=== PATIENT | female | born 1945 | race Caucasian/White ===

== ENCOUNTER → 2019-08-25 | Outpatient (REF) | payer MEDICARE, OTHER ==
[2019-08-25 18:10] LABS: BASO % 0.5 % (0.0-1.0); EOS # 0.1 10^3/uL (0.0-0.5); EOS % 1.7 % (0.0-3.0); HEMATOCRIT 40.1 % (36.0-47.0); HEMOGLOBIN 12.9 g/dl (12.0-15.5); LYMPH # 2.8 10^3/uL (1.5-5.0); LYMPH % 32.6 % (24.0-44.0); MEAN CORPUSCULAR HEMOGLOBIN 29.7 pg (27.0-33.0); MEAN CORPUSCULAR HGB CONC 32.2 g/dl (32.0-36.5); MEAN CORPUSCULAR VOLUME 92.4 fl (80.0-96.0); MONO # 0.6 10^3/uL (0.0-0.8); MONO % 7.2 % (0.0-5.0); NEUTROPHILS # 4.9 10^3/uL (1.5-8.5); NEUTROPHILS % 57.5 % (36.0-66.0); PLATELET COUNT, AUTOMATED 248 10^3/uL (150-450); RED BLOOD COUNT 4.34 10^6/uL (4.00-5.40); WHITE BLOOD COUNT 8.4 10^3/uL (4.0-10.0)
[2019-08-25 18:19] LABS: ALBUMIN 3.8 GM/DL (3.2-5.2); ALT/SGPT 12 U/L (12-78); BILIRUBIN,TOTAL 0.2 MG/DL (0.2-1.0); BLOOD UREA NITROGEN 6 MG/DL (7-18); CARBON DIOXIDE LEVEL 37 MEQ/L (21-32); CHLORIDE LEVEL 97 MEQ/L (98-107); CHOLESTEROL LEVEL 171 MG/DL (<200); CREATININE FOR GFR 0.49 MG/DL (0.55-1.30); GLOMERULAR FILTRATION RATE > 60.0 (>39); GLUCOSE, FASTING 119 MG/DL (70-100); HDL CHOLESTEROL 38 MG/DL (>40); LDL CHOLESTEROL 79 MG/DL (<100); NON-HDL-C 133 MG/DL; POTASSIUM SERUM 3.6 MEQ/L (3.5-5.1); SODIUM LEVEL 138 MEQ/L (136-145); TRIGLYCERIDES LEVEL 272 MG/DL (<150)
[2019-08-25 18:26] LABS: HEMOGLOBIN A1c 7.1 %
== END ==
LOC: M SFHCPLAZ 14:26
DX: E11.9 Type 2 diabetes mellitus without complications (principal); E78.00 Pure hypercholesterolemia, unspecified
CPT/HCPCS: 36415; 80053; 80061; 83036; 85025; G0463

== ENCOUNTER → 2019-10-21 | Outpatient (REF) | payer MEDICARE, OTHER | LOC: M SFHCPLAZ 14:12 | DX: E11.9 Type 2 diabetes mellitus without complications (principal) | CPT/HCPCS: 36415; G0463 ==

== ENCOUNTER → 2020-04-07 | Outpatient (CLI) | payer MEDICARE, BC, OTHER ==
--- NOTE | 2020-04-13 15:43 | REP ---
THREE VIEWS OF THE LEFT SHOULDER COMPARISON: None. REASON FOR EXAM: Chronic pain. FINDINGS: Hypertrophic degenerative change is seen involving the acromioclavicular joint. The glenohumeral relationship is within normal limits. There is a tiny ossific density seen arising from the inferior glenoid. IMPRESSION: 1. Chronic acromioclavicular (AC) joint changes. I cannot rule out an old fracture. 2. Possible fracture inferior glenoid. 3. Subluxation of the humeral head somewhat superiorly within the glenohumeral joint. 4. Consider further evaluation with CT and/or MRI. MTDD
== END ==
LOC: M WUC 12:42
PROVIDERS: ATTEND Internal Medicine
DX: M25.512 Pain in left shoulder (principal); S43.395A Dislocation of other parts of left shoulder girdle, initial encounter; X58.XXXA Exposure to other specified factors, initial encounter; Y92.9 Unspecified place or not applicable

== ENCOUNTER → 2020-04-26 | Outpatient (REF) | payer MEDICARE, OTHER ==
[2020-04-26 14:28] LABS: BLOOD UREA NITROGEN 6 MG/DL (7-18); CALCIUM LEVEL 9.4 MG/DL (8.8-10.2); CARBON DIOXIDE LEVEL 34 MEQ/L (21-32); CHLORIDE LEVEL 90 MEQ/L (98-107); CREATININE FOR GFR 0.59 MG/DL (0.55-1.30); GLOMERULAR FILTRATION RATE > 60.0 (>39); GLUCOSE, FASTING 195 MG/DL (70-100); POTASSIUM SERUM 4.8 MEQ/L (3.5-5.1); SODIUM LEVEL 129 MEQ/L (136-145)
== END ==
LOC: M SFHCPLAZ 09:05
DX: R25.2 Cramp and spasm (principal)

== ENCOUNTER 2020-06-17 15:30 | Emergency (ER) | payer MEDICARE, BC, OTHER ==
[~2020-06-17] VITALS: Ht 154.9 cm; Wt 107.4 kg
[2020-06-17] MEDS ORDERED: ONDANSETRON 4 MG ORAL DISINTEGRATING TAB PO ONE (16:00)
--- NOTE | 2020-06-17 16:01 | REP ---
INDICATION: FALL POSSIBLE BLOOD THINNERS. COMPARISON: None. TECHNIQUE: CT BRAIN PERFORMED IN THE AXIAL PLANE. CORONAL RECONSTRUCTION IMAGES ARE PERFORMED. FINDINGS: There is moderate atrophy. No midline shift or mass effect. No definite abnormal density is seen in the brain. There is no acute intracranial hemorrhage or extra-axial fluid collection. Scalp hematoma is seen in the right frontal region. No skull fracture is seen. There are mild vascular calcifications of the carotid siphons. The visualized paranasal sinuses are clear. IMPRESSION: Chronic changes without evidence of acute intracranial hemorrhage, midline shift or mass effect. No skull fracture. Scalp hematoma right frontal region. <Electronically signed by Flaco Peralta > 06/17/20 0725
--- NOTE | 2020-06-17 16:10 | REP ---
INDICATION: FALL POSSIBLE BLOOD THINNERS. COMPARISON: None. TECHNIQUE: CT cervical spine performed in the axial plane, with sagittal and coronal reconstruction images performed. FINDINGS: Study somewhat limited due to patient motion. There is no acute compression fracture or malalignment. There is no prevertebral soft tissue swelling. There is diffuse moderate spurring and disc space narrowing at C4 through C7.. There is slight reversal of cervical lordosis. There is no abnormal density in the spinal canal. There is a tiny amount of fluid and/or mucosal thickening in the inferior maxillary sinuses bilaterally. IMPRESSION: No evidence of acute fracture or dislocation.Arthritic changes. <Electronically signed by Flaco Peralta > 06/17/20 6278
[2020-06-17] MEDS ORDERED: ACETAMINOPHEN 500 MG TAB PO ONE (16:30)
--- NOTE | 2020-06-17 16:32 | REP ---
INDICATION: trauma COMPARISON: None. TECHNIQUE: Five views right 3rd digit performed. FINDINGS: There is medial dislocation at the 3rd proximal interphalangeal joint, with the middle and distal phalanges displaced and angulated medially. There is no definite fracture. IMPRESSION: Medial dislocation at the 3rd proximal interphalangeal joint. <Electronically signed by Flaco Peralta > 06/17/20 6989
--- NOTE | 2020-06-17 16:43 | REP ---
INDICATION: post reduction COMPARISON: Earlier the same day. TECHNIQUE: Four views right 3rd digit, postreduction. FINDINGS: The previously noted medial dislocation at the proximal interphalangeal joint has been reduced. The osseous structures are well-aligned. There is moderate narrowing of the visualized proximal and distal interphalangeal joints.There is a small chip fracture at the anterior margin of the 3rd proximal interphalangeal joint. IMPRESSION: Successful reduction of the previously noted dislocation at the 3rd proximal interphalangeal joint. There is a small chip fracture at the anterior margin of the 3rd proximal interphalangeal joint. <Electronically signed by Flaco Peralta > 06/17/20 1640
[2020-06-17 17:11] VITALS: BP 184/90
== END 2020-06-17 17:16 | disposition home or self-care (01) ==
LOC: EDBD 15:30 → M ED 15:30
DX: S00.03XA Contusion of scalp, initial encounter (principal); S63.282A Dislocation of proximal interphalangeal joint of right middle finger, initial encounter; S62.642A Nondisplaced fracture of proximal phalanx of right middle finger, initial encounter for closed fracture; W07.XXXA Fall from chair, initial encounter; Y92.019 Unspecified place in single-family (private) house as the place of occurrence of the external cause; Y93.9 Activity, unspecified; Y99.9 Unspecified external cause status; M50.30 Other cervical disc degeneration, unspecified cervical region; E11.9 Type 2 diabetes mellitus without complications; I10 Essential (primary) hypertension; G89.29 Other chronic pain; F20.9 Schizophrenia, unspecified
CPT/HCPCS: 26770; 70450; 72125; 73140; 99284; Q0162

== ENCOUNTER → 2021-01-11 | Outpatient (REF) | payer MEDICARE, BC, OTHER | LOC: M SFHCWAGY 13:06 | PROVIDERS: ATTEND Student in an Organized Health Care Education/Training Program | DX: G89.4 Chronic pain syndrome (principal); Z79.899 Other long term (current) drug therapy | CPT/HCPCS: 80307; G0463 ==

== ENCOUNTER 2021-05-20 13:31 | Emergency (ER) | payer MEDICARE, BC, OTHER ==
[~2021-05-20] VITALS: Ht 144.8 cm; Wt 86.4 kg
--- OUTSIDE RECORDS SUMMARY | 2021-05-20 13:42 | CCD ---
Author Author [facility] Organization [facility] Address Unknown Phone Unavailable Care Team Providers Care Machinist Linotype Name Role Phone Ute Yangricia Unavailable PROBLEMS Type Condition ICD9-CM Code VNB69-PT Code Onset Dates Condition S tatus W/U Status Risk SNOMED Code Notes Problem Morbid obesity E66.01 Active confirmed 90079 6002 Problem Other chronic pain G89.29 Active confirmed 8 9255401 Problem Chronic pain syndrome G89.4 Active confirmed 075697940 Problem Hypercholesterolemia E78.00 Active confirmed 20533876 Problem Obstructive sleep apnea G47.33 Active confirmed 30970492 Problem Generalized anxiety disorder F41.1 Active confirme d 60314414 Problem Seasonal allergic rhinitis due to pollen J30.1 Active confirmed 26336155 Problem 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 Active confirmed 18915120 Problem Dysphagia, unspecified type R13.10 Active confirmed 94766521 Problem Type 2 diabetes mellitus wit hout complication, without long-term current use of insulin E11.9 Active confirmed 932954056 Problem Complex regional pain syndrome affecting both upper arms G90.513 Active confirmed 228553272 Problem Slow transit constipation K59.01 Active confirmed 31933760 Problem Allergic rhinitis, unspecified J30.9 Active confir med 04731591 Problem Age-related cataract of both eyes, unspecified age-related cataract type H25.9 Active confirmed 76641162 ALLERGIES No Known Allergies ENCOUNTERS from 1945 to 2021-05-10 Encounter Location Date Provider Diagnosis [address] [phone] [place] [address] May, Leeanne Yang IMMUNIZATIONS No Information SOCIAL HISTORY Tobacco Use: Social History Observation Description Date Details (start date - stop date) Former Smoker Sex Assigned At : Social History Observation Description Sex Assigned At Unknown Audit Question Answer Notes Total Score: 0 Interpretation: Alcohol Education Drug and Alcohol Question Answer Notes Total Score: 0 Interpretation: No problems reported Tobacco Use: Question Answer Notes Are you a: former smoker How long has it been since you last smoked? > 10 years REASON FOR REFERRAL No Information VITAL SIGNS No information MEDICATIONS Medication SIG (Take, Route, Frequency, Duration) Notes Start Da te End Date Status Pravastatin Sodium 40 MG 1 tablet Orally Once a day Active Losartan Potassium 100 MG TAKE ONE TABLET BY MOUTH PIPO RY DAY Orally Once a day for 30 days Active Lyrica 50 MG 1 capsule Orally Once a day for 30 Days Active OneTouch SureSoft Lancing Dev - as directed topically Daily for 90 days Oct, Active Albuterol Sulfate 108 (90 Base) MCG/ACT 1 puff as need ed Inhalation every 4 hrs as needed for 30 Days Dec, Active Citalopram Hydrobromide 20 MG 1 tablet Orally Once a day Active Januvia 25 MG as directed Orally Daily for 90 days Active Lasix 20 MG 2 tablet Orally Once a day for 90 day(s) Active OneTouch Verio w/Device as directed topically Daily for 90 day(s ) Oct, Active ZyrTEC Allergy 10 MG 1 tablet on the tongue and a llow to dissolve Orally Once a day for 90 day(s) Oct, Active HYDROcodone-Acetaminophen 10-325 MG 1 tablet as needed Orally every 6 hrs for 30 days Apr, Active ARIPiprazole 30 MG 1 tablet Orally Once a day Active PROCEDURES No Information RESULTS No Results REASON FOR VISIT refill MEDICAL (GENERAL) HISTORY Type Description Date Medical History DM Type 2 Medical History Chronic pain and has been on chronic opi oids Medical History HTN Medical History Anxiety Medical History High Cholesterol Medical History Osteoarthritis Medical History Emphysema Medical History Depression Medical History Schizophrenia Surgical History Transabdominal hysterectomy and bilatera l salpingoophorectomy 1992 Hospitalization History Back traction Goals Section No Information Health Concerns No Information MEDICAL EQUIPMENT No Information MENTAL STATUS No Information FUNCTIONAL STATUS No Information ASSESSMENTS No Information PLAN OF TREATMENT Medication Medication Name Sig Start Date Stop Date Losartan Potassium 100 MG TAKE ONE TABLET BY MOUTH PIPO RY DAY Orally Once a day for 30 days HYDROcodone-Acetaminophen 10-325 MG 1 tablet as needed Orally every 6 hrs for 30 days Apr, Next Appt Details Provider Name:Althea Benoit, 2020-07 02:30:00 PM, [address] [facility], , [place], [address], Insurance Providers Payer Name Payer Address Payer Phone Insured Name Patient Relati onship to Insured Coverage Start Date Coverage End Date [facility] [address] [facility] [id number] Ismael Peters MEDICARE Part A and B [address] [facility] [id number] [phone] TICO GUEVARA self
--- OUTSIDE RECORDS SUMMARY | 2021-05-20 13:42 | CCD ---
Author Author [facility] Organization [facility] Address Unknown Phone Unavailable Care Team Providers Care Vfx Artist Name Role Phone Leeanne Yang Unavailable PROBLEMS Type Condition ICD9-CM Code HQY26-GC Code Onset Dates Condition S tatus W/U Status Risk SNOMED Code Notes Problem Morbid obesity E66.01 Active confirmed 65418 6002 Problem Other chronic pain G89.29 Active confirmed 8 5017152 Problem Chronic pain syndrome G89.4 Active confirmed 518870925 Problem Hypercholesterolemia E78.00 Active confirmed 84299586 Problem Obstructive sleep apnea G47.33 Active confirmed 58649806 Problem Generalized anxiety disorder F41.1 Active confirme d 02423926 Problem Seasonal allergic rhinitis due to pollen J30.1 Active confirmed 59323745 Problem 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 Active confirmed 03439644 Problem Dysphagia, unspecified type R13.10 Active confirmed 68207280 Problem Type 2 diabetes mellitus wit hout complication, without long-term current use of insulin E11.9 Active confirmed 555450234 Problem Complex regional pain syndrome affecting both upper arms G90.513 Active confirmed 164421021 Problem Slow transit constipation K59.01 Active confirmed 78549134 Problem Allergic rhinitis, unspecified J30.9 Active confir med 97272213 Problem Age-related cataract of both eyes, unspecified age-related cataract type H25.9 Active confirmed 54440310 ALLERGIES No Known Allergies ENCOUNTERS from 1945 to 2021-04-25 Encounter Location Date Provider Diagnosis [address] [phone] [place] [address] 18 Apr, 2021 Leeanne Yang Chronic pain syndrome G89.4 IMMUNIZATIONS No Information SOCIAL HISTORY Tobacco Use: [...] 100 MG TAKE ONE TABLET BY MOUTH EVERY DAY for 30 Active Lyrica 50 MG 1 capsule Orally [...] Information RESULTS No Results REASON FOR VISIT stomach cream and vicodin MEDICAL (GENERAL) HISTORY Type Description Date Medical [...] No Information FUNCTIONAL STATUS No Information ASSESSMENTS Encounter Date Diagnosis Assessment Notes Treatment Notes Treatm ent Clinical Notes Apr, Chronic pain syndrome (ICD-10 - G89.4) PLAN OF TREATMENT Medication Medication Name Sig Start Date Stop Date HYDROcodone-Acetaminophen 10-325 MG 1 tablet as needed Orally every 6 hrs for 30 days Apr, Next Appt Details Provider Name:Althea Benoit, 2020-07 02:30:00 PM, [address] [facility], , [place], [address], Insurance Providers Payer Name Payer Address Payer Phone Insured Name Patient Relati onship to Insured Coverage Start Date Coverage End Date MEDICARE Part A and B [address] [facility] [id number] TICO GUEVARA [facility] [address] [facility] [id number] Ismael Peters
--- OUTSIDE RECORDS SUMMARY | 2021-05-20 13:42 | CCD ---
Author Author [facility] Organization [facility] Address Unknown Phone Unavailable Care Team Providers Care Chief Deputy Clerk/Bailiff Name Role Phone MakennaKati PROBLEMS Type Condition ICD9-CM Code [id number] Code Onset Dates Condition S tatus W/U Status Risk SNOMED Code Notes Problem Morbid obesity E66.01 Active confirmed 78899 6002 Problem Other chronic pain G89.29 Active confirmed 8 0834400 Problem Chronic pain syndrome G89.4 Active confirmed 393053239 Problem Hypercholesterolemia E78.00 Active confirmed 48055829 Problem Obstructive sleep apnea G47.33 Active confirmed 04903152 Problem Generalized anxiety disorder F41.1 Active confirme d 99642312 Problem Seasonal allergic rhinitis due to pollen J30.1 Active confirmed 21108682 Problem 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 Active confirmed 52769550 Problem Dysphagia, unspecified type R13.10 Active confirmed 67913699 Problem Type 2 diabetes mellitus wit hout complication, without long-term current use of insulin E11.9 Active confirmed 109252766 Problem Complex regional pain syndrome affecting both upper arms G90.513 Active confirmed 351372524 Problem Slow transit constipation K59.01 Active confirmed 93091978 Problem Allergic rhinitis, unspecified J30.9 Active confir med 97280477 Problem Age-related cataract of both eyes, unspecified age-related cataract type H25.9 Active confirmed 67565879 ALLERGIES No Known Allergies ENCOUNTERS from 1945 to 2021-02-19 Encounter Location Date Provider Diagnosis [facility] [place] [address] [facility] [address] [phone] [place] [address] Jan, Kati Mensah Chronic pain syndrom e G89.4 IMMUNIZATIONS No Information SOCIAL HISTORY Tobacco [...] REASON FOR REFERRAL No Information VITAL SIGNS Weight 199.2 lbs Jan, Height 62 in Jan, BMI 36.43 kg/m2 Jan, Heart Rate 81 /min Jan, Respiratory Rate 19 /min Jan, Temperature 97.4 degrees Fahrenheit Jan, Oximetry 98 Jan, Blood pressure systolic 120 mm Hg Jan, Blood pressure diastolic 80 mm Hg Jan, MEDICATIONS Medication SIG (Take, Route, Frequency, Duration) [...] directed Orally Daily for 90 days Active HYDROcodone-Acetaminophen 10-325 MG 1 tablet as needed Orally every 4-6 hrs MDD: 6 for 30 days Feb, Active OneTouch Verio w/Device as directed topically Daily for 90 day(s ) Oct, Active ZyrTEC Allergy 10 MG 1 tablet on the tongue and a llow to dissolve Orally Once a day for 90 day(s) Oct, Active Lasix 20 MG 2 tablet Orally Once a day for 90 day(s) Active ARIPiprazole 30 MG 1 tablet Orally Once a day Active PROCEDURES No Information RESULTS No Results REASON FOR VISIT Request pain meds MEDICAL (GENERAL) HISTORY Type Description Date Medical [...] Notes Treatment Notes Treatm ent Clinical Notes Jan, Chronic pain syndrome (ICD-10 - G89.4) Patient agreed to urine drug screen. Will fill hydrocodone-acetaminophen for 6 days until the patient sees her new PCP Dr. Yang on 01/17/2021. Advised the patient to use pill box to ensure correct dosing. Advised the patient to avoid performing activities after taking the medication due to the drowsy effect. Patient and family said that she only needs 4 tab daily for pain control. Will change prescription to MDD of 6 but dispense 4 tablet for 7 days only. Patient will need to establish a controlled substance contract with new PCP Dr. 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 All of the above findings, plans, and assessments were discussed with precepting attending on 01/11/2021 morning PLAN OF TREATMENT Medication Medication Name Sig Start Date Stop Date HYDROcodone-Acetaminophen 10-325 MG 1 tablet as needed Orally every 4-6 hrs MDD: 6 for 30 days Feb, Treatment Notes Assessment Notes Clinical Notes Chronic pain syndrome Patient agreed to urine drug screen. Will fill hydrocodone-acetaminophen for 6 days until the patient sees her new PCP Dr. Yang on 01/17/2021. Advised the patient to use pill box to ensure correct dosi ng. Advised the patient to avoid performing activities after taking the medication due to the drowsy effect. Patient and family said that she only needs 4 tab daily for pain control. Will change prescription to MDD of 6 but dispense 4 tablet for 7 days only. Patient will need to establish a controlled substance contract with new PCP Dr. 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 All of the above findings, plans, and assessments were discussed with precepting attending on 01/11/2021 morning Treatment Notes Test Name Order Date DRUG EVAL COMPREHENSIVE 2021-01-11 Next Appt Details As scheduled on 01/17/[address] Thelma pelaez Reason: Provider Name:Leeanne Yang, 2021-03-25 11:00:00 AM, [address] [facility] [address], , [place], [address], Insurance Providers Payer Name Payer Address Payer Phone Insured Name Patient Relati onship to Insured Coverage Start Date Coverage End Date MEDICARE Part A and B [address] [facility] [id number] TICO GUEVARA [facility] [address] [facility] [id number] Ismael Peters
--- OUTSIDE RECORDS SUMMARY | 2021-05-20 13:42 | CCD ---
Author Author [facility] Organization [facility] Address Unknown Phone Unavailable Care Team Providers Care Livestock Nutrition Territory Manager Name Role Phone Leeanne Yang Unavailable PROBLEMS Type Condition ICD9-CM Code [id number] Code Onset Dates Condition S tatus W/U Status Risk SNOMED Code Notes Problem Morbid obesity E66.01 Active confirmed 41797 6002 Problem Other chronic pain G89.29 Active confirmed 8 9928454 Problem Chronic pain syndrome G89.4 Active confirmed 443919591 Problem Hypercholesterolemia E78.00 Active confirmed 46755995 Problem Obstructive sleep apnea G47.33 Active confirmed 14780408 Problem Generalized anxiety disorder F41.1 Active confirme d 89760329 Problem Seasonal allergic rhinitis due to pollen J30.1 Active confirmed 19985234 Problem 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 Active confirmed 02442191 Problem Dysphagia, unspecified type R13.10 Active confirmed 73458304 Problem Type 2 diabetes mellitus wit hout complication, without long-term current use of insulin E11.9 Active confirmed 260738451 Problem Complex regional pain syndrome affecting both upper arms G90.513 Active confirmed 483344688 Problem Slow transit constipation K59.01 Active confirmed 65387250 Problem Allergic rhinitis, unspecified J30.9 Active confir med 77503452 Problem Age-related cataract of both eyes, unspecified age-related cataract type H25.9 Active confirmed 28108310 ALLERGIES No Known Allergies ENCOUNTERS from 1945 to 2021-03-26 Encounter Location Date Provider Diagnosis [address] [phone] [place] [address] Mar, Leeanne Yang Chronic pain syndrome G89.4 IMMUNIZATIONS [...] Notes Start Da te End Date Status ZyrTEC Allergy 10 MG 1 tablet on the tongue and a llow to dissolve Orally Once a day for 90 day(s) Oct, Active Losartan Potassium 100 MG TAKE ONE [...] directed Orally Daily for 90 days Active Pravastatin Sodium 40 MG 1 tablet Orally Once a day Active OneTouch Verio w/Device as directed topically Daily for 90 day(s ) Oct, Active HYDROcodone-Acetaminophen 10-325 MG 1 tablet as needed Orally every 6 hrs for 30 days Mar, Active Lasix 20 MG 2 tablet Orally Once a day for 90 day(s) Active ARIPiprazole 30 MG 1 tablet Orally Once a day Active PROCEDURES No Information RESULTS No Results REASON FOR VISIT refill - out of meds MEDICAL (GENERAL) HISTORY Type Description Date [...] Notes Treatment Notes Treatm ent Clinical Notes Mar, Chronic pain syndrome (ICD-10 - G89.4) PLAN OF TREATMENT Medication Medication Name Sig Start Date Stop Date HYDROcodone-Acetaminophen 10-325 MG 1 tablet as needed Orally every 6 hrs for 30 days Mar, Next Appt Details Provider Name:Leeanne Yang, 2021-03-27 10:30:00 AM, [address] [facility], , [place], [address], Insurance Providers Payer Name Payer Address Payer Phone Insured Name Patient Relati onship to Insured Coverage Start Date Coverage End Date MEDICARE Part A and B [address] [facility] [id number] TICO GUEVARA [facility] [address] [facility] [id number] Ismael Peters
--- OUTSIDE RECORDS SUMMARY | 2021-05-20 13:43 | CCD ---
Author Author [facility] Address Unknown Phone Unavailable Care Team Providers Care Narcotics Investigator Name Role Phone Susi SHAH MD Unavailable Unavailable Susi SHAH MD Unavailable Unavailable Susi SHAH MD Unavailable Unavailable Susi SHAH MD Unavailable Unavailable Susi SHAH MD Unavailable Unavailable Susi SHAH MD Unavailable Unavailable Susi SHAH MD Unavailable Unavailable Susi SHAH MD Unavailable Unavailable Susi SHAH MD Unavailable Unavailable Susi SHAH MD Unavailable Unavailable Susi SHAH MD Unavailable Unavailable Susi SHAH MD Unavailable Unavailable Susi SHAH MD Unavailable Unavailable Susi SHAH MD Unavailable Unavailable Susi SHAH MD Unavailable Unavailable Susi SHAH MD Unavailable Unavailable Susi SHAH MD Unavailable Unavailable Susi SHAH MD Unavailable Unavailable Susi SHAH MD Unavailable Unavailable Susi SHAH MD Unavailable Unavailable Susi SHAH MD Unavailable Unavailable Susi SHAH MD Unavailable Unavailable Susi SHAH MD Unavailable Unavailable Susi SHAH MD Unavailable Unavailable Susi SHAH MD Unavailable Unavailable Susi SHAH MD Unavailable Unavailable Susi SHAH MD Unavailable Unavailable Susi SHAH MD Unavailable Unavailable Susi SHAH MD Unavailable Unavailable Susi SHAH MD Unavailable Unavailable Susi SHAH MD Unavailable Unavailable Susi SHAH MD Unavailable Unavailable Susi SHAH MD Unavailable Unavailable Susi SHAH MD Unavailable Unavailable Susi SHAH MD Unavailable Unavailable Susi SHAH MD Unavailable Unavailable Susi SHAH MD Unavailable Unavailable Susi SHAH MD Unavailable Unavailable Susi SHAH MD Unavailable Unavailable Susi SHAH MD Unavailable Unavailable Susi SHAH MD Unavailable Unavailable Susi SHAH MD Unavailable Unavailable Susi SHAH MD Unavailable Unavailable Susi SHAH MD Unavailable Unavailable Susi SHAH MD Unavailable Unavailable Susi SHAH MD Unavailable Unavailable Susi SHAH MD Unavailable Unavailable Susi SHAH MD Unavailable Unavailable Susi SHAH MD Unavailable Unavailable Susi SHAH MD Unavailable Unavailable Susi SHAH MD Unavailable Unavailable Susi SHAH MD Unavailable Unavailable Susi SHAH MD Unavailable Unavailable Susi SHAH MD Unavailable Unavailable Susi SHAH MD Unavailable Unavailable Susi SHAH MD Unavailable Unavailable Susi SHAH MD Unavailable Unavailable Susi SHAH MD Unavailable Unavailable Suis SHAH MD Unavailable Unavailable Susi SHAH MD Unavailable Unavailable Susi SHAH MD Unavailable Unavailable Susi SHAH MD Unavailable Unavailable Susi SHAH MD Unavailable Unavailable Susi SHAH MD Unavailable Unavailable Susi SHAH MD Unavailable Unavailable Susi SHAH MD Unavailable Unavailable Susi SHAH MD Unavailable Unavailable Susi SHAH MD Unavailable Unavailable Susi SHAH MD Unavailable Unavailable Susi SHAH MD Unavailable Unavailable Susi SHAH MD Unavailable Unavailable Susi SHAH MD Unavailable Unavailable Susi SHAH MD Unavailable Unavailable Susi SHAH MD Unavailable Unavailable Susi SHAH MD Unavailable Unavailable Susi SHAH MD Unavailable Unavailable Susi SHAH MD Unavailable Unavailable Susi SHAH MD Unavailable Unavailable Susi SHAH MD Unavailable Unavailable Susi SHAH MD Unavailable Unavailable Susi SHAH MD Unavailable Unavailable Susi SHAH MD Unavailable Unavailable Susi SHAH MD Unavailable Unavailable Susi SHAH MD Unavailable Unavailable Susi SHAH MD Unavailable Unavailable Susi SHAH MD Unavailable Unavailable Susi SHAH MD Unavailable Unavailable Susi SHAH MD Unavailable Unavailable Susi SHAH MD Unavailable Unavailable Re-disclosure Warning The records that you are about to access may contain information from federally-assisted alcohol or drug abuse programs. If such information is present, then the following federally mandated warning applies: This information has been disclosed to you from records protected by federal confidentiality rules (42 CFR part 2). The federal rules prohibit you from making any further disclosure of this information unless further disclosure is expressly permitted by the written consent of the person to whom it pertains or as otherwise permitted by 42 CFR part 2. A general authorization for the release of medical or other information is NOT sufficient for this purpose. The Federal rules restrict any use of the information to criminally investigate or prosecute any alcohol or drug abuse patient.The records that you are about to access may contain highly sensitive health information, the redisclosure of which is protected by Article 27-F of the [facility] Public Health law. If you continue you may have access to information: Regarding HIV / AIDS; Provided by facilities licensed or operated by the [facility] Office of Mental Health; or Provided by the [facility] Office for People With Developmental Disabilities. If such information is present, then the following [facility] mandated warning applies: This information has been disclosed to you from confidential records which are protected by state law. State law prohibits you from making any further disclosure of this information without the specific written consent of the person to whom it pertains, or as otherwise permitted by law. Any unauthorized further disclosure in violation of state law may result in a fine or nursing home sentence or both. A general authorization for the release of medical or other information is NOT sufficient authorization for further disc losure. Family History Family Member Name Family Member Gender Family Member Status Date o f Status Description Data Source(s) Unknown Female Problem [facility] ([facility] Encounters Encounter Providers Location Date Indications Data Source(s ) Unknown [address] [facility] [place] [address] 05/08/2021 12:00:00 AM EDT eCW1 ([facility]) Unknown [address] [facility] [place] [address] 04/22/2021 12:00:00 AM EDT eCW1 ([facility]) Unknown [address] [facility] [place] [address] 03/25/2021 12:00:00 AM EDT eCW1 ([facility]) [place] [address] [facility] [place] [address] 02/11/2021 12:00:00 AM EDT eCW1 ([facility]) [place] [address] [facility] [place] [address] 02/01/2021 12:00:00 AM EDT eCW1 ([facility]) [place] [address] [facility] [place] [address] 01/22/2021 12:00:00 AM EDT eCW1 ([facility]) [place] [address] [facility] [place] [address] 01/17/2021 12:00:00 AM EDT eCW1 ([facility]) [place] [address] [facility] [address] 01/11/2021 12:00:00 AM EDT eCW1 ([facility]) [place] [address] [facility] [place] [address] 01/04/2021 12:00:00 AM EDT eCW1 ([facility]) [place] [address] [facility] [place] [address] 01/02/2021 12:00:00 AM EDT eCW1 ([facility]) [place] [address] [facility] [place] [address] 12/28/2020 12:00:00 AM EDT eCW1 ([facility]) [place] [address] [facility] [place] [address] 12/20/2020 12:00:00 AM EDT eCW1 ([facility]) [place] [address] [facility] [place] [address] 12/10/2020 12:00:00 AM EDT eCW1 ([facility]) [place] [address] [facility] [place] [address] 11/14/2020 12:00:00 AM EDT eCW1 ([facility]) [place] [address] [facility] [place] [address] 10/24/2020 12:00:00 AM EDT eCW1 ([facility]) [place] [address] [facility] [place] [address] 10/22/2020 12:00:00 AM EDT eCW1 ([facility]) [place] [address] [facility] [place] [address] 10/19/2020 12:00:00 AM EDT eCW1 ([facility]) [place] [address] [facility] [place] [address] 10/19/2020 12:00:00 AM EDT eCW1 ([facility]) [place] [address] [facility] [place] [address] 10/16/2020 12:00:00 AM EDT eCW1 ([facility]) [place] [address] [facility] [place] [address] 10/11/2020 12:00:00 AM EDT eCW1 ([facility]) [place] [address] [facility] [place] [address] 10/04/2020 12:00:00 AM EDT eCW1 ([facility]) [place] [address] [facility] [place] [address] 09/24/2020 12:00:00 AM EDT eCW1 ([facility]) [place] [address] [facility] [place] [address] 08/30/2020 12:00:00 AM EST eCW1 ([facility]) TeleMedicine Phone E/M by Phys 21-30 Min [address] [place] [address] 08/24/2020 12:00:00 AM EST eCW1 ([facility]) [place] [address] [facility] [place] [address] 08/07/2020 12:00:00 AM EST eCW1 ([facility]) [place] [address] [facility] [place] [address] 07/17/2020 12:00:00 AM EST eCW1 ([facility]) [place] [address] [facility] [place] [address] 07/11/2020 12:00:00 AM EST eCW1 ([facility]) [place] [address] [facility] [place] [address] 07/09/2020 12:00:00 AM EST eCW1 ([facility]) [place] [address] [facility] [place] [address] 06/18/2020 12:00:00 AM EST eCW1 ([facility]) [place] [address] [facility] [place] [address] 06/13/2020 12:00:00 AM EST eCW1 ([facility]) [place] [address] [facility] [place] [address] 06/04/2020 12:00:00 AM EST eCW1 ([facility]) [place]patient [address] [facility] [place] [address] 05/25/2020 12:00:00 AM EST eCW1 ([facility]) [place] [address] [facility] [place] [address] 05/15/2020 12:00:00 AM EST eCW1 ([facility]) [place] [address] [facility] [place] [address] 05/01/2020 12:00:00 AM EDT eCW1 ([facility]) Outpatient Attender: PAMELA TORRES 04/27/2020 12:02:14 A M EDT [facility] [place] [address] [facility] [address] 04/19/2020 12:00:00 AM EDT [facility]CW1 [facility] [place] [address] [facility] [address] 04/10/2020 12:00:00 AM EDT eCW1 ([facility]) Immunizations Vaccine Date Status Description Data Source(s) COVID-19 VACCINE Moderna 09/10/2020 12:00:00 AM EST completed [facility] Vaccine Series Complete: YESThis Data wa s Submitted to [facility] [employer]. COVID-19 VACCINE, MRNA-1273, LNP-S (MODERNA)/PF 09/10/2020 1 2:00:00 AM EST completed [facility] COVID-19 VACCINE Moderna 08/13/2020 12:00:00 AM EST completed [facility] Vaccine Series Complete: NOThis Data was Submitted to [facility] [employer]. COVID-19 VACCINE, MRNA-1273, LNP-S (MODERNA)/PF 08/13/2020 1 2:00:00 AM EST completed [facility] INFLUENZA VIRUS VACCINE QUADRIVALENT 2019- (6 MOS AN D UP) 03/27/2020 12:00:00 AM EDT completed [facility] Medications Medication Brand Name Start Date Product Form Dose Route Admi nistrative Instructions Pharmacy Instructions Status Indications Reaction Description Data Source(s) Acetaminophen 325 MG / Hydrocodone Bitartrate 10 MG Or al Tablet 10-325 mg HYDROCODONE/ACETAMINOPHEN 05/17/2021 12:00:00 AM EST tablet 120 TAKE ONE TABLET BY MOUTH EVERY 6 HOURS NEEDED MAXIMUM DAILY DOSE = 4 TAKE ONE TABLET BY MOUTH EVERY 6 HOURS NEEDED MAXIMUM DAILY DOSE = 4 SOLD: 05/18/2021 [facility] 100 mg 05/09/2021 12:00:00 AM EDT tablet 30 TAKE ONE TABLET BY MOUTH DAILY TAKE ONE TABLET BY MOUTH DAILY SOLD: 05/09/2021 [facility] Acetaminophen 325 MG / Hydrocodone Bitartrate 10 MG Or al Tablet 10-325 mg HYDROCODONE/ACETAMINOPHEN 04/24/2021 12:00:00 AM EDT tablet 120 TAKE ONE TABLET BY MOUTH EVERY 6 HOURS NEEDED MAXIMUM DAILY DOSE = 4 TAKE ONE TABLET BY MOUTH EVERY 6 HOURS NEEDED MAXIMUM DAILY DOSE = 4 SOLD: 04/24/2021 [facility] Acetaminophen 325 MG / Hydrocodone Niko trate 10 MG Oral Tablet HYDROcodone- Acetaminophen 10-325 MG HYDROcodone-Acetaminophen 10-325 MG 04/23/2021 12:00:0 0 AM EDT 1.0 {tablet_as_needed} active HYDROcodone-Acetaminophen 10- 325 MG [facility] ([facility]) Acetaminophen 325 MG / Hydrocodone Niko trate 10 MG Oral Tablet HYDROcodone- Acetaminophen 10-325 MG HYDROcodone-Acetaminophen 10-325 MG 04/23/2021 12:00:0 0 AM EDT 1.0 {tablet_as_needed} active HYDROcodone-Acetaminophen 10- 325 MG eCW1 ([facility]) Acetaminophen 325 MG / Hydrocodone Bitartrate 10 MG Or al Tablet 10-325 mg HYDROCODONE/ACETAMINOPHEN 03/26/2021 12:00:00 AM EDT tablet 120 TAKE ONE TABLET BY MOUTH EVERY 6 HOURS NEEDED MAXIMUM DAILY DOSE = 4 TABLETS TAKE ONE TABLET BY MOUTH EVERY 6 HOURS NEEDED MAXIMUM DAILY DOSE = 4 TABLETS SOLD: 03/26/2021 [facility] Acetaminophen 325 MG / Hydrocodone Niko trate 10 MG Oral Tablet HYDROcodone- Acetaminophen 10-325 MG HYDROcodone-Acetaminophen 10-325 MG 03/25/2021 12:00:0 0 AM EDT 1.0 {tablet_as_needed} active HYDROcodone-Acetaminophen 10- 325 MG eCW1 ([facility]) Acetaminophen 325 MG / Hydrocodone Bitartrate 10 MG Or al Tablet 10-325 mg HYDROCODONE/ACETAMINOPHEN 02/16/2021 12:00:00 AM EDT tablet 120 TAKE ONE TABLET BY MOUTH EVERY 4 TO 6 HOURS NEEDED MAXIMUM DAILY DOSE = 6 TABLETS TAKE ONE TABLET BY MOUTH EVERY 4 TO 6 HOURS NEEDED MAXIMUM DAILY DOSE = 6 TABLETS SOLD: 02/16/2021 [facility] Acetaminophen 325 MG / Hydrocodone Niko trate 10 MG Oral Tablet HYDROcodone- Acetaminophen 10-325 MG HYDROcodone-Acetaminophen 10-325 MG 02/16/2021 12:00:0 0 AM EDT 1.0 {tablet_as_needed} active HYDROcodone-Acetaminophen 10- 325 MG eCW1 ([facility]) Acetaminophen 325 MG / Hydrocodone Niko trate 10 MG Oral Tablet HYDROcodone- Acetaminophen 10-325 MG HYDROcodone-Acetaminophen 10-325 MG 02/16/2021 12:00:0 0 AM EDT 1.0 {tablet_as_needed} active HYDROcodone-Acetaminophen 10- 325 MG eCW1 ([facility]) 2 mg 01/21/2021 12:00:00 AM EDT tablet 90 TAKE ONE TABLET BY MOUTH EVERY MORNING TAKE ONE TABLET BY MOUTH EVERY MORNING SOLD: 01/21/2021 [facility] Citalopram 20 MG Oral Tablet CITALOPRAM HYDROBROMIDE 01/21/2021 12:00:00 AM EDT tablet 90 TAKE ONE TABLET BY MOUTH EVERY E VENING TAKE ONE TABLET BY MOUTH EVERY EVENING SOLD: 01/21/2021 [facility] Acetaminophen 325 MG / Hydrocodone Bitartrate 10 MG Or al Tablet 10-325 mg HYDROCODONE/ACETAMINOPHEN 01/18/2021 12:00:00 AM EDT tablet 120 TAKE ONE TABLET BY MOUTH EVERY 4 TO 6 HOURS NEEDED MAXIMUM DAILY DOSE = SIX TABLETS TAKE ONE TABLET BY MOUTH EVERY 4 TO 6 HOURS NEEDED MAXIMUM DAILY DOSE = SIX TABLETS SOLD: 01/18/2021 [facility] Acetaminophen 325 MG / Hydrocodone Niko trate 10 MG Oral Tablet HYDROcodone- Acetaminophen 10-325 MG HYDROcodone-Acetaminophen 10-325 MG 01/17/2021 12:00:0 0 AM EDT 1.0 {tablet_as_needed} active HYDROcodone-Acetaminophen 10- 325 MG eCW1 ([facility]) Acetaminophen 325 MG / Hydrocodone Niko trate 10 MG Oral Tablet HYDROcodone- Acetaminophen 10-325 MG HYDROcodone-Acetaminophen 10-325 MG 01/17/2021 12:00:0 0 AM EDT 1.0 {tablet_as_needed} active HYDROcodone-Acetaminophen 10- 325 MG eCW1 ([facility]) Acetaminophen 325 MG / Hydrocodone Niko trate 10 MG Oral Tablet HYDROcodone- Acetaminophen 10-325 MG HYDROcodone-Acetaminophen 10-325 MG 01/17/2021 12:00:0 0 AM EDT 1.0 {tablet_as_needed} active HYDROcodone-Acetaminophen 10- 325 MG eCW1 ([facility]) Acetaminophen 325 MG / Hydrocodone Niko trate 10 MG Oral Tablet HYDROcodone- Acetaminophen 10-325 MG HYDROcodone-Acetaminophen 10-325 MG 01/17/2021 12:00:0 0 AM EDT 1.0 {tablet_as_needed} active HYDROcodone-Acetaminophen 10- 325 MG eCW1 ([facility]) Acetaminophen 325 MG / Hydrocodone Bitartrate 10 MG Or al Tablet 10-325 mg HYDROCODONE/ACETAMINOPHEN 01/12/2021 12:00:00 AM EDT tablet 28 TAKE ONE TABLET BY MOUTH EVERY 4 TO 6 HOURS NEEDED MAXIMUM DAILY DOSE = 6 TABLETS TAKE ONE TABLET BY MOUTH EVERY 4 TO 6 HOURS NEEDED MAXIMUM DAILY DOSE = 6 TABLETS SOLD: 01/12/2021 [facility] Acetaminophen 325 MG / Hydrocodone Niko trate 10 MG Oral Tablet HYDROcodone- Acetaminophen 10-325 MG HYDROcodone-Acetaminophen 10-325 MG 01/04/2021 12:00:0 0 AM EDT 1.0 {tablet_as_needed} active HYDROcodone-Acetaminophen 10- 325 MG eCW1 ([facility]) Acetaminophen 325 MG / Hydrocodone Niko trate 10 MG Oral Tablet HYDROcodone- Acetaminophen 10-325 MG HYDROcodone-Acetaminophen 10-325 MG 01/04/2021 12:00:0 0 AM EDT 1.0 {tablet_as_needed} active HYDROcodone-Acetaminophen 10- 325 MG eCW1 ([facility]) 90 mcg/actuation 01/01/2021 12:00:00 AM EDT aerosol powdr breath activated 1 INHALE ONE PUFF BY MOUTH EVERY 4 HOURS NEEDED INHAL E ONE PUFF BY MOUTH EVERY 4 HOURS NEEDED SOLD: 01/07/2021 [facility] 25 mg 12/29/2020 12:00:00 AM EDT tablet 90 TAKE DIRECTED DAILY TAKE DIRECTED DAILY SOLD: 04/09/2021 [facility] 25 mg 12/29/2020 12:00:00 AM EDT tablet 90 TAKE DIRECTED DAILY TAKE DIRECTED DAILY SOLD: 12/31/2020 [facility] Albuterol Sulfate 108 (90 Base) MCG/ACT UNK 12/28/2020 12: 00:00 AM EDT 1.0 {puff_as_needed} active Albuterol Sulfa te 108 (90 Base) MCG/ACT eCW1 ([facility]) Albuterol Sulfate 108 (90 Base) MCG/ACT UNK 12/28/2020 12: 00:00 AM EDT 1.0 {puff_as_needed} active Albuterol Sulfa te 108 (90 Base) MCG/ACT eCW1 ([facility]) Albuterol Sulfate 108 (90 Base) MCG/ACT UNK 12/28/2020 12: 00:00 AM EDT 1.0 {puff_as_needed} active Albuterol Sulfa te 108 (90 Base) MCG/ACT eCW1 ([facility]) Albuterol Sulfate 108 (90 Base) MCG/ACT UNK 12/28/2020 12: 00:00 AM EDT 1.0 {puff_as_needed} active Albuterol Sulfa te 108 (90 Base) MCG/ACT eCW1 ([facility]) Albuterol Sulfate 108 (90 Base) MCG/ACT UNK 12/28/2020 12: 00:00 AM EDT 1.0 {puff_as_needed} active Albuterol Sulfa te 108 (90 Base) MCG/ACT eCW1 ([facility]) Albuterol Sulfate 108 (90 Base) MCG/ACT UNK 12/28/2020 12: 00:00 AM EDT 1.0 {puff_as_needed} active Albuterol Sulfa te 108 (90 Base) MCG/ACT eCW1 ([facility]) Albuterol Sulfate 108 (90 Base) MCG/ACT UNK 12/28/2020 12: 00:00 AM EDT 1.0 {puff_as_needed} active Albuterol Sulfa te 108 (90 Base) MCG/ACT eCW1 ([facility]) Albuterol Sulfate 108 (90 Base) MCG/ACT UNK 12/28/2020 12: 00:00 AM EDT 1.0 {puff_as_needed} active Albuterol Sulfa te 108 (90 Base) MCG/ACT eCW1 ([facility]) Albuterol Sulfate 108 (90 Base) MCG/ACT UNK 12/28/2020 12: 00:00 AM EDT 1.0 {puff_as_needed} active Albuterol Sulfa te 108 (90 Base) MCG/ACT eCW1 ([facility]) Albuterol Sulfate 108 (90 Base) MCG/ACT UNK 12/28/2020 12: 00:00 AM EDT 1.0 {puff_as_needed} active Albuterol Sulfa te 108 (90 Base) MCG/ACT eCW1 ([facility]) Albuterol Sulfate 108 (90 Base) MCG/ACT UNK 12/28/2020 12: 00:00 AM EDT 1.0 {puff_as_needed} active Albuterol Sulfa te 108 (90 Base) MCG/ACT eCW1 ([facility]) Albuterol Sulfate 108 (90 Base) MCG/ACT UNK 12/28/2020 12: 00:00 AM EDT 1.0 {puff_as_needed} active Albuterol Sulfa te 108 (90 Base) MCG/ACT eCW1 ([facility]) Acetaminophen 325 MG / Hydrocodone Bitartrate 10 MG Or al Tablet 10-325 mg HYDROCODONE/ACETAMINOPHEN 12/17/2020 12:00:00 AM EDT tablet 120 TAKE ONE TABLET BY MOUTH EVERY 4 TO 6 HOURS NEEDED MAXIMUM DAILY DOSE = 4 TABLETS TAKE ONE TABLET BY MOUTH EVERY 4 TO 6 HOURS NEEDED MAXIMUM DAILY DOSE = 4 TABLETS SOLD: 12/18/2020 [facility] 100 mg 12/04/2020 12:00:00 AM EDT tablet 30 TAKE ONE TABLET BY MOUTH EVERY DAY TAKE ONE TABLET BY MOUTH EVERY DAY SOLD: 12/13/2020 [facility] Acetaminophen 325 MG / Hydrocodone Niko trate 10 MG Oral Tablet HYDROcodone- Acetaminophen 10-325 MG HYDROcodone-Acetaminophen 10-325 MG 11/16/2020 12:00:0 0 AM EDT 1.0 {tablet_as_needed} active HYDROcodone-Acetaminophen 10- 325 MG eCW1 ([facility]) Acetaminophen 325 MG / Hydrocodone Bitartrate 10 MG Or al Tablet 10-325 mg HYDROCODONE/ACETAMINOPHEN 11/16/2020 12:00:00 AM EDT tablet 180 TAKE ONE TABLET BY MOUTH EVERY 4-6 HOURS NEEDED MAXIMUM DAILY DOSE = 4 TAKE ONE TABLET BY MOUTH EVERY 4-6 HOURS NEEDED MAXIMUM DAILY DOSE = 4 SOLD: 11/17/2020 [facility] Acetaminophen 325 MG / Hydrocodone Niko trate 10 MG Oral Tablet Hydrocodone- Acetaminophen 10-325 MG Hydrocodone-Acetaminophen 10-325 MG 11/16/2020 12:00:0 0 AM EDT 1.0 {tablet_as_needed} active Hydrocodone-Acetaminophen 10- 325 MG eCW1 ([facility]) Acetaminophen 325 MG / Hydrocodone Niko trate 10 MG Oral Tablet HYDROcodone- Acetaminophen 10-325 MG HYDROcodone-Acetaminophen 10-325 MG 11/16/2020 12:00:0 0 AM EDT 1.0 {tablet_as_needed} active HYDROcodone-Acetaminophen 10- 325 MG eCW1 ([facility]) 100 mg 11/05/2020 12:00:00 AM EDT tablet 30 TAKE ONE TABLET BY MOUTH EVERY DAY TAKE ONE TABLET BY MOUTH EVERY DAY SOLD: 11/07/2020 [facility] 25 mg 10/22/2020 12:00:00 AM EDT tablet 90 TAKE DIRECTED DAILY TAKE DIRECTED DAILY SOLD: 10/23/2020 [facility] Acetaminophen 325 MG / Hydrocodone Niko trate 10 MG Oral Tablet Hydrocodone- Acetaminophen 10-325 MG Hydrocodone-Acetaminophen 10-325 MG 10/22/2020 12:00:0 0 AM EDT 1.0 {tablet_as_needed} active Hydrocodone-Acetaminophen 10- 325 MG eCW1 ([facility]) Acetaminophen 325 MG / Hydrocodone Niko trate 10 MG Oral Tablet Hydrocodone- Acetaminophen 10-325 MG Hydrocodone-Acetaminophen 10-325 MG 10/22/2020 12:00:0 0 AM EDT 1.0 {tablet_as_needed} active Hydrocodone-Acetaminophen 10- 325 MG eCW1 ([facility]) Acetaminophen 325 MG / Hydrocodone Bitartrate 10 MG Or al Tablet 10-325 mg HYDROCODONE/ACETAMINOPHEN 10/22/2020 12:00:00 AM EDT tablet 180 TAKE ONE TABLET BY MOUTH EVERY 4 TO 6 HOURS NEEDED MAXIMUM DAILY DOSE = 4 TABLETS TAKE ONE TABLET BY MOUTH EVERY 4 TO 6 HOURS NEEDED MAXIMUM DAILY DOSE = 4 TABLETS SOLD: 10/23/2020 [facility] Acetaminophen 325 MG / Hydrocodone Niko trate 10 MG Oral Tablet Hydrocodone- Acetaminophen 10-325 MG Hydrocodone-Acetaminophen 10-325 MG 10/22/2020 12:00:0 0 AM EDT 1.0 {tablet_as_needed} active Hydrocodone-Acetaminophen 10- 325 MG eCW1 ([facility]) Acetaminophen 325 MG / Hydrocodone Niko trate 10 MG Oral Tablet Hydrocodone- Acetaminophen 10-325 MG Hydrocodone-Acetaminophen 10-325 MG 10/22/2020 12:00:0 0 AM EDT 1.0 {tablet_as_needed} active Hydrocodone-Acetaminophen 10- 325 MG eCW1 ([facility]) BLOOD-GLUCOSE METER 10/17/2020 12:00:00 AM EDT misc 1 USE DIRECTED USE DIRECTED SOLD: 10/18/2020 [facility] 33 gauge 10/17/2020 12:00:00 AM EDT misc 100 USE DIRECTED USE DIRECTED SOLD: 10/18/2020 [facility] OneTouch Verio w/Device OneTouch Verio w/Device 10/16/2020 12:00:00 A M EDT active OneTouch Verio w/Dev ice eCW1 ([facility]) OneTouch Verio w/Device OneTouch Verio w/Device 10/16/2020 12:00:00 A M EDT active OneTouch Verio w/Dev ice eCW1 ([facility]) OneTouch Verio w/Device OneTouch Verio w/Device 10/16/2020 12:00:00 A M EDT active OneTouch Verio w/Dev ice eCW1 ([facility]) OneTouch SureSoft Lancing Dev - OneTouch SureSoft Lancing De v - 10/16/2020 12:00:00 AM EDT active OneTouch [employer] Lancing Dev - eCW1 ([facility]) OneTouch Verio w/Device OneTouch Verio w/Device 10/16/2020 12:00:00 A M EDT active OneTouch Verio w/Dev ice eCW1 ([facility]) OneTouch Verio w/Device OneTouch Verio w/Device 10/16/2020 12:00:00 A M EDT active OneTouch Verio w/Dev ice eCW1 ([facility]) OneTouch SureSoft Lancing Dev - OneTouch SureSoft Lancing De v - 10/16/2020 12:00:00 AM EDT active OneTouch [employer] Lancing Dev - eCW1 ([facility]) OneTouch SureSoft Lancing Dev - OneTouch SureSoft Lancing De v - 10/16/2020 12:00:00 AM EDT active OneTouch SureSoft Lancing Dev - eCW1 ([facility]) OneTouch Verio w/Device OneTouch Verio w/Device 10/16/2020 12:00:00 A M EDT active OneTouch Verio w/Dev ice eCW1 [facility] [place]) [employer] - [employer] Lancing De v - 10/16/2020 12:00:00 AM EDT active [employer] - eCW1 ([facility]) [employer] - [employer] Lancing De v - 10/16/2020 12:00:00 AM EDT active [employer] Lancing Dev - eCW1 ([facility]) [employer] - [employer] Lancing De v - 10/16/2020 12:00:00 AM EDT active [employer] Lancing Dev - eCW1 ([facility]) OneTouch Verio w/Device OneTouch Verio w/Device 10/16/2020 12:00:00 A M EDT active OneTouch Verio w/Dev ice eCW1 ([facility]) OneTouch Verio w/Device OneTouch Verio w/Device 10/16/2020 12:00:00 A M EDT active OneTouch Verio w/Dev ice eCW1 ([facility]) [employer] - [employer] Lancing De v - 10/16/2020 12:00:00 AM EDT active [employer] - eCW1 ([facility]) [employer] - [employer] Lancing De v - 10/16/2020 12:00:00 AM EDT active [employer] Lancing Dev - eCW1 ([facility]) [employer] - [employer] Sure[employer] Lancing De v - 10/16/2020 12:00:00 AM EDT active [employer] Lancing Dev - eCW1 ([facility]) [employer] - [employer] Lancing De v - 10/16/2020 12:00:00 AM EDT active [employer] - eCW1 ([facility]) OneTouch Verio w/Device OneTouch Verio w/Device 10/16/2020 12:00:00 A M EDT active OneTouch Verio w/Dev ice eCW1 ([facility]) [employer] - [employer] Lancing De v - 10/16/2020 12:00:00 AM EDT active [employer] Lancing Dev - eCW1 ([facility]) [employer] - [employer] Sure[employer] Lancing De v - 10/16/2020 12:00:00 AM EDT active [employer] Lancing Dev - eCW1 ([facility]) OneTouch Verio w/Device OneTouch Verio w/Device 10/16/2020 12:00:00 A M EDT active OneTouch Verio w/Dev ice eCW1 ([facility]) OneTouch Verio w/Device OneTouch Verio w/Device 10/16/2020 12:00:00 A M EDT active OneTouch Verio w/Dev ice eCW1 ([facility]) OneTouch Verio w/Device OneTouch Verio w/Device 10/16/2020 12:00:00 A M EDT active OneTouch Verio w/Dev ice eCW1 ([facility]) [employer] Lancing [employer] - [employer] Lancing De v - 10/16/2020 12:00:00 AM EDT active [employer] - eCW1 ([facility]) OneTouch Verio w/Device OneTouch Verio w/Device 10/16/2020 12:00:00 A M EDT active OneTouch Verio w/Dev ice eCW1 ([facility]) [employer] - [employer] Sure[employer] Lancing De v - 10/16/2020 12:00:00 AM EDT active [employer] Lancing Dev - eCW1 ([facility]) [employer] - [employer] Sure[employer] Lancing De v - 10/16/2020 12:00:00 AM EDT active [employer] Sure[employer] Lancing Dev - eCW1 ([facility]) [employer] - [employer] Lancing De v - 10/16/2020 12:00:00 AM EDT active [employer] Lancing Dev - eCW1 ([facility]) OneTouch Verio w/Device OneTouch Verio w/Device 10/16/2020 12:00:00 A M EDT active OneTouch Verio w/Dev ice eCW1 ([facility]) [employer]ancing [employer] - [employer] Sure[employer] Lancing De v - 10/16/2020 12:00:00 AM EDT active [employer] Lancing Dev - eCW1 ([facility]) OneTouch Verio w/Device OneTouch Verio w/Device 10/16/2020 12:00:00 A M EDT active OneTouch Verio w/Dev ice eCW1 ([facility]) OneTouch Verio w/Device OneTouch Verio w/Device 10/16/2020 12:00:00 A M EDT active OneTouch Verio w/Dev ice eCW1 ([facility]) OneTouch Verio w/Device OneTouch Verio w/Device 10/16/2020 12:00:00 A M EDT active OneTouch Verio w/Dev ice eCW1 ([facility]) [employer] - [employer] Sure[employer] Lancing De v - 10/16/2020 12:00:00 AM EDT active OneTouch Sure[employer] Lancing Dev - eCW1 ([facility]) OneTouch Verio w/Device OneTouch Verio w/Device 10/16/2020 12:00:00 A M EDT active OneTouch Verio w/Dev ice eCW1 ([facility]) OneTouch Verio w/Device OneTouch Verio w/Device 10/16/2020 12:00:00 A M EDT active OneTouch Verio w/Dev ice eCW1 ([facility]) [employer] Lancing [employer] - OneTouch SureSoft Lancing De v - 10/16/2020 12:00:00 AM EDT active [employer]Touch Sure[employer] Lancing Dev - eCW1 ([facility]) [employer] Lancing Dev - OneTouch Sure[employer] Lancing De v - 10/16/2020 12:00:00 AM EDT active OneTouch Sure[employer] Lancing Dev - eCW1 ([facility]) OneTouch Verio w/Device OneTouch Verio w/Device 10/16/2020 12:00:00 A M EDT active OneTouch Verio w/Dev ice eCW1 ([facility]) cetirizine hydrochloride 10 MG Disintegr ating Oral Tablet [Zyrtec] ZyrTEC Allergy 10 MG ZyrTEC Allergy 10 MG 10/11/2020 12:00:00 AM EDT 1.0 {tablet_on_the_tongue_and_allow_to_dissolve} activ e ZyrTEC Allergy 10 MG eCW1 ([facility]) cetirizine hydrochloride 10 MG Disintegr ating Oral Tablet [Zyrtec] ZyrTEC Allergy 10 MG ZyrTEC Allergy 10 MG 10/11/2020 12:00:00 AM EDT 1.0 {tablet_on_the_tongue_and_allow_to_dissolve} activ e ZyrTEC Allergy 10 MG eCW1 ([facility]) cetirizine hydrochloride 10 MG Disintegr ating Oral Tablet [Zyrtec] ZyrTEC Allergy 10 MG ZyrTEC Allergy 10 MG 10/11/2020 12:00:00 AM EDT 1.0 {tablet_on_the_tongue_and_allow_to_dissolve} activ e ZyrTEC Allergy 10 MG eCW1 ([facility]) cetirizine hydrochloride 10 MG Disintegr ating Oral Tablet [Zyrtec] ZyrTEC Allergy 10 MG ZyrTEC Allergy 10 MG 10/11/2020 12:00:00 AM EDT 1.0 {tablet_on_the_tongue_and_allow_to_dissolve} activ e ZyrTEC Allergy 10 MG eCW1 ([facility]) 50 mg 10/11/2020 12:00:00 AM EDT capsule 30 TAKE ONE CAPSULE BY MOUTH EVERY DAY MAXIMUM DAILY DOSE = ONE CAPSULE TAKE ONE CAPSULE BY MOUTH EVERY DAY MAXI MUM DAILY DOSE = ONE CAPSULE SOLD: 10/11/2020 [facility] cetirizine hydrochloride 10 MG Disintegr ating Oral Tablet [Zyrtec] Zyrtec Allergy 10 MG Zyrtec Allergy 10 MG 10/11/2020 12:00:00 AM EDT 1.0 {tablet_on_the_tongue_and_allow_to_dissolve} activ e Zyrtec Allergy 10 MG eCW1 ([facility]) cetirizine hydrochloride 10 MG Disintegr ating Oral Tablet [Zyrtec] ZyrTEC Allergy 10 MG ZyrTEC Allergy 10 MG 10/11/2020 12:00:00 AM EDT 1.0 {tablet_on_the_tongue_and_allow_to_dissolve} activ e ZyrTEC Allergy 10 MG eCW1 ([facility]) cetirizine hydrochloride 10 MG Disintegr ating Oral Tablet [Zyrtec] ZyrTEC Allergy 10 MG ZyrTEC Allergy 10 MG 10/11/2020 12:00:00 AM EDT 1.0 {tablet_on_the_tongue_and_allow_to_dissolve} activ e ZyrTEC Allergy 10 MG eCW1 ([facility]) cetirizine hydrochloride 10 MG Disintegr ating Oral Tablet [Zyrtec] ZyrTEC Allergy 10 MG ZyrTEC Allergy 10 MG 10/11/2020 12:00:00 AM EDT 1.0 {tablet_on_the_tongue_and_allow_to_dissolve} activ e ZyrTEC Allergy 10 MG eCW1 ([facility]) cetirizine hydrochloride 10 MG Disintegr ating Oral Tablet [Zyrtec] Zyrtec Allergy 10 MG Zyrtec Allergy 10 MG 10/11/2020 12:00:00 AM EDT 1.0 {tablet_on_the_tongue_and_allow_to_dissolve} activ e Zyrtec Allergy 10 MG eCW1 ([facility]) cetirizine hydrochloride 10 MG Disintegr ating Oral Tablet [Zyrtec] Zyrtec Allergy 10 MG Zyrtec Allergy 10 MG 10/11/2020 12:00:00 AM EDT 1.0 {tablet_on_the_tongue_and_allow_to_dissolve} activ e Zyrtec Allergy 10 MG eCW1 ([facility]) cetirizine hydrochloride 10 MG Disintegr ating Oral Tablet [Zyrtec] ZyrTEC Allergy 10 MG ZyrTEC Allergy 10 MG 10/11/2020 12:00:00 AM EDT 1.0 {tablet_on_the_tongue_and_allow_to_dissolve} activ e ZyrTEC Allergy 10 MG eCW1 ([facility]) cetirizine hydrochloride 10 MG Disintegr ating Oral Tablet [Zyrtec] ZyrTEC Allergy 10 MG ZyrTEC Allergy 10 MG 10/11/2020 12:00:00 AM EDT 1.0 {tablet_on_the_tongue_and_allow_to_dissolve} activ e ZyrTEC Allergy 10 MG eCW1 ([facility]) cetirizine hydrochloride 10 MG Disintegr ating Oral Tablet [Zyrtec] Zyrtec Allergy 10 MG Zyrtec Allergy 10 MG 10/11/2020 12:00:00 AM EDT 1.0 {tablet_on_the_tongue_and_allow_to_dissolve} activ e Zyrtec Allergy 10 MG eCW1 ([facility]) cetirizine hydrochloride 10 MG Disintegr ating Oral Tablet [Zyrtec] ZyrTEC Allergy 10 MG ZyrTEC Allergy 10 MG 10/11/2020 12:00:00 AM EDT 1.0 {tablet_on_the_tongue_and_allow_to_dissolve} activ e ZyrTEC Allergy 10 MG eCW1 ([facility]) cetirizine hydrochloride 10 MG Disintegr ating Oral Tablet [Zyrtec] ZyrTEC Allergy 10 MG ZyrTEC Allergy 10 MG 10/11/2020 12:00:00 AM EDT 1.0 {tablet_on_the_tongue_and_allow_to_dissolve} activ e ZyrTEC Allergy 10 MG eCW1 ([facility]) cetirizine hydrochloride 10 MG Disintegr ating Oral Tablet [Zyrtec] Zyrtec Allergy 10 MG Zyrtec Allergy 10 MG 10/11/2020 12:00:00 AM EDT 1.0 {tablet_on_the_tongue_and_allow_to_dissolve} activ e Zyrtec Allergy 10 MG eCW1 ([facility]) cetirizine hydrochloride 10 MG Disintegr ating Oral Tablet [Zyrtec] ZyrTEC Allergy 10 MG ZyrTEC Allergy 10 MG 10/11/2020 12:00:00 AM EDT 1.0 {tablet_on_the_tongue_and_allow_to_dissolve} activ e ZyrTEC Allergy 10 MG eCW1 ([facility]) cetirizine hydrochloride 10 MG Disintegr ating Oral Tablet [Zyrtec] Zyrtec Allergy 10 MG Zyrtec Allergy 10 MG 10/11/2020 12:00:00 AM EDT 1.0 {tablet_on_the_tongue_and_allow_to_dissolve} activ e Zyrtec Allergy 10 MG eCW1 ([facility]) cetirizine hydrochloride 10 MG Disintegr ating Oral Tablet [Zyrtec] ZyrTEC Allergy 10 MG ZyrTEC Allergy 10 MG 10/11/2020 12:00:00 AM EDT 1.0 {tablet_on_the_tongue_and_allow_to_dissolve} activ e ZyrTEC Allergy 10 MG eCW1 ([facility]) cetirizine hydrochloride 10 MG Disintegr ating Oral Tablet [Zyrtec] Zyrtec Allergy 10 MG Zyrtec Allergy 10 MG 10/11/2020 12:00:00 AM EDT 1.0 {tablet_on_the_tongue_and_allow_to_dissolve} activ e Zyrtec Allergy 10 MG eCW1 ([facility]) 100 mg 10/08/2020 12:00:00 AM EDT tablet 30 TAKE ONE TABLET BY MOUTH EVERY DAY TAKE ONE TABLET BY MOUTH EVERY DAY SOLD: 10/10/2020 [facility] 25 mg 09/25/2020 12:00:00 AM EDT tablet 30 TAKE ONE TABLET BY MOUTH EVERY DAY DIRECTED TAKE ONE TABLET BY MOUTH EVERY DAY DIRECTED SOLD: [facility] Acetaminophen 325 MG / Hydrocodone Niko trate 10 MG Oral Tablet Hydrocodone- Acetaminophen 10-325 MG Hydrocodone-Acetaminophen 10-325 MG 09/25/2020 12:00:0 0 AM EDT 1.0 {tablet_as_needed} active Hydrocodone-Acetaminophen 10- 325 MG eCW1 ([facility]) Acetaminophen 325 MG / Hydrocodone Niko trate 10 MG Oral Tablet Hydrocodone- Acetaminophen 10-325 MG Hydrocodone-Acetaminophen 10-325 MG 09/25/2020 12:00:0 0 AM EDT 1.0 {tablet_as_needed} active Hydrocodone-Acetaminophen 10- 325 MG eCW1 ([facility]) Acetaminophen 325 MG / Hydrocodone Niko trate 10 MG Oral Tablet Hydrocodone- Acetaminophen 10-325 MG Hydrocodone-Acetaminophen 10-325 MG 09/25/2020 12:00:0 0 AM EDT 1.0 {tablet_as_needed} active Hydrocodone-Acetaminophen 10- 325 MG eCW1 ([facility]) 10-325 mg 09/25/2020 12:00:00 AM EDT tablet 180 TAKE ONE TABLET BY MOUTH EVERY 4 TO 6 HOURS NEEDED MAXIMUM DAILY DOSE = 4 TABLETS TAKE ONE TABLET BY MOUTH EVERY 4 TO 6 HOURS NEEDED MAXIMUM DAILY DOSE = 4 TABLETS SOLD: 09/27/2020 [facility] Acetaminophen 325 MG / Hydrocodone Niko trate 10 MG Oral Tablet Hydrocodone- Acetaminophen 10-325 MG Hydrocodone-Acetaminophen 10-325 MG 09/25/2020 12:00:0 0 AM EDT 1.0 {tablet_as_needed} active Hydrocodone-Acetaminophen 10- 325 MG eCW1 ([facility]) 100 mg 09/05/2020 12:00:00 AM EST tablet 30 TAKE ONE TABLET BY MOUTH EVERY DAY TAKE ONE TABLET BY MOUTH EVERY DAY SOLD: 09/12/2020 [facility] Acetaminophen 325 MG / Hydrocodone Niko trate 10 MG Oral Tablet Hydrocodone- Acetaminophen 10-325 MG Hydrocodone-Acetaminophen 10-325 MG 08/31/2020 12:00:0 0 AM EST 1.0 {tablet_as_needed} active Hydrocodone-Acetaminophen 10- 325 MG eCW1 ([facility]) 25 mg 08/31/2020 12:00:00 AM EST tablet 30 TAKE ONE TABLET BY MOUTH EVERY DAY DIRECTED TAKE ONE TABLET BY MOUTH EVERY DAY DIRECTED SOLD: [facility] Acetaminophen 325 MG / Hydrocodone Niko trate 10 MG Oral Tablet Hydrocodone- Acetaminophen 10-325 MG Hydrocodone-Acetaminophen 10-325 MG 08/31/2020 12:00:0 0 AM EST 1.0 {tablet_as_needed} active Hydrocodone-Acetaminophen 10- 325 MG eCW1 ([facility]) 10-325 mg 08/31/2020 12:00:00 AM EST tablet 120 TAKE ONE TABLET BY MOUTH EVERY 4 TO 6 HOURS NEEDED MAXIMUM DAILY DOSE = 4 TABLETS TAKE ONE TABLET BY MOUTH EVERY 4 TO 6 HOURS NEEDED MAXIMUM DAILY DOSE = 4 TABLETS SOLD: 09/02/2020 [facility] pregabalin 25 MG Oral Capsule [Lyrica] Lyrica 25 MG Lyrica 2 5 MG 08/24/2020 12:00:00 AM EST 1.0 {capsule} active L yrica 25 MG eCW1 ([facility]) pregabalin 25 MG Oral Capsule [Lyrica] Lyrica 25 MG Lyrica 2 5 MG 08/24/2020 12:00:00 AM EST 1.0 {capsule} active L yrica 25 MG eCW1 ([facility]) pregabalin 25 MG Oral Capsule [Lyrica] Lyrica 25 MG Lyrica 2 5 MG 08/24/2020 12:00:00 AM EST 1.0 {capsule} active L yrica 25 MG eCW1 ([facility]) 25 mg 08/24/2020 12:00:00 AM EST capsule 30 TAKE ONE CAPSULE BY MOUTH EVERY DAY MAXIMUM DAILY DOSE = 1 CAPSULE TAKE ONE CAPSULE BY MOUTH EVERY DAY MAXI MUM DAILY DOSE = 1 CAPSULE SOLD: 08/24/2020 [facility] pregabalin 25 MG Oral Capsule [Lyrica] Lyrica 25 MG Lyrica 2 5 MG 08/24/2020 12:00:00 AM EST 1.0 {capsule} active L yrica 25 MG eCW1 ([facility]) 2 % 08/17/2020 12:00:00 AM EST cream 60 APPLY TOPICALY ONCE DAILY APPLY TOPICALY ONCE DAILY SOLD: 11/22/2020 [facility] 2 % 08/17/2020 12:00:00 AM EST cream 60 APPLY TOPICALY ONCE DAILY APPLY TOPICALY ONCE DAILY SOLD: 08/17/2020 [facility] 2 % 08/17/2020 12:00:00 AM EST cream 60 APPLY TOPICALY ONCE DAILY APPLY TOPICALY ONCE DAILY SOLD: 02/28/2021 [facility] 2 % 08/17/2020 12:00:00 AM EST cream 60 APPLY TOPICALY ONCE DAILY APPLY TOPICALY ONCE DAILY SOLD: 04/09/2021 [facility] 2 % 08/17/2020 12:00:00 AM EST cream 60 APPLY TOPICALY ONCE DAILY APPLY TOPICALY ONCE DAILY SOLD: 12/31/2020 [facility] 2 % 08/17/2020 12:00:00 AM EST cream 60 APPLY TOPICALY ONCE DAILY APPLY TOPICALY ONCE DAILY SOLD: 02/03/2021 [facility] 20 mg 08/16/2020 12:00:00 AM EST tablet 180 TAKE TWO TABLETS BY MOUTH EVERY DAY TAKE TWO TABLETS BY MOUTH EVERY DAY SOLD: 12/13/2020 [facility] 90 mcg/actuation 08/16/2020 12:00:00 AM EST HFA aerosol inha ler 8 INHALE ONE PUFF BY MOUTH EVERY 4 HOURS NEEDED INHALE ONE PUFF BY MOUTH EVERY 4 HOURS A S NEEDED SOLD: 11/17/2020 [facility] 90 mcg/actuation 08/16/2020 12:00:00 AM EST HFA aerosol inha ler 8 INHALE ONE PUFF BY MOUTH EVERY 4 HOURS NEEDED INHALE ONE PUFF BY MOUTH EVERY 4 HOURS A S NEEDED SOLD: 10/13/2020 [facility] 90 mcg/actuation 08/16/2020 12:00:00 AM EST HFA aerosol inha ler 8 INHALE ONE PUFF BY MOUTH EVERY 4 HOURS NEEDED INHALE ONE PUFF BY MOUTH EVERY 4 HOURS A S NEEDED SOLD: 10/27/2020 [facility] 20 mg 08/16/2020 12:00:00 AM EST tablet 180 TAKE TWO TABLETS BY MOUTH EVERY DAY TAKE TWO TABLETS BY MOUTH EVERY DAY SOLD: 04/09/2021 [facility] 90 mcg/actuation 08/16/2020 12:00:00 AM EST HFA aerosol inha ler 8 INHALE ONE PUFF BY MOUTH EVERY 4 HOURS NEEDED INHALE ONE PUFF BY MOUTH EVERY 4 HOURS A S NEEDED SOLD: 09/21/2020 [facility] 90 mcg/actuation 08/16/2020 12:00:00 AM EST HFA aerosol inha ler 8 INHALE ONE PUFF BY MOUTH EVERY 4 HOURS NEEDED INHALE ONE PUFF BY MOUTH EVERY 4 HOURS A S NEEDED SOLD: 08/17/2020 [facility] 90 mcg/actuation 08/16/2020 12:00:00 AM EST HFA aerosol inha ler 8 INHALE ONE PUFF BY MOUTH EVERY 4 HOURS NEEDED INHALE ONE PUFF BY MOUTH EVERY 4 HOURS A S NEEDED SOLD: 08/31/2020 [facility] 20 mg 08/16/2020 12:00:00 AM EST tablet 180 TAKE TWO TABLETS BY MOUTH EVERY DAY TAKE TWO TABLETS BY MOUTH EVERY DAY SOLD: 08/17/2020 [facility] 25 mg 08/08/2020 12:00:00 AM EST tablet 30 TAKE ONE TABLET BY MOUTH EVERY DAY DIRECTED TAKE ONE TABLET BY MOUTH EVERY DAY DIRECTED SOLD: [facility] Acetaminophen 325 MG / Hydrocodone Niko trate 10 MG Oral Tablet Hydrocodone- Acetaminophen 10-325 MG Hydrocodone-Acetaminophen 10-325 MG 08/07/2020 12:00:0 0 AM EST 1.0 {tablet_as_needed} active Hydrocodone-Acetaminophen 10- 325 MG eCW1 ([facility]) 10-325 mg 08/07/2020 12:00:00 AM EST tablet 120 TAKE ONE TABLET BY MOUTH EVERY 4 TO 6 HOURS NEEDED MAXIMUM DAILY DOSE = 4 TABLETS TAKE ONE TABLET BY MOUTH EVERY 4 TO 6 HOURS NEEDED MAXIMUM DAILY DOSE = 4 TABLETS SOLD: 08/08/2020 [facility] 2 mg 07/31/2020 12:00:00 AM EST tablet 90 TAKE ONE TABLET BY MOUTH EVERY MORNING TAKE ONE TABLET BY MOUTH EVERY MORNING SOLD: 08/02/2020 [facility] Citalopram 20 MG Oral Tablet CITALOPRAM HYDROBROMIDE 07/31/2020 12:00:00 AM EST tablet 90 TAKE ONE TABLET BY MOUTH IN THE EVENING TAKE ONE TABLET BY MOUTH IN THE EVENING SOLD: 08/02/2020 [facility] 25 mg 07/17/2020 12:00:00 AM EST tablet 30 TAKE ONE TABLET BY MOUTH EVERY 8 HOURS NEEDED TAKE ONE TABLET BY MOUTH EVERY 8 HOURS NEEDED SOLD: 07/17/2020 [facility] 25 mg 07/17/2020 12:00:00 AM EST tablet 30 TAKE ONE TABLET BY MOUTH EVERY 8 HOURS NEEDED TAKE ONE TABLET BY MOUTH EVERY 8 HOURS NEEDED SOLD: 04/09/2021 [facility] 10-325 mg 07/16/2020 12:00:00 AM EST tablet 120 TAKE ONE TABLET BY MOUTH EVERY 4 TO 6 HOURS NEEDED MAXIMUM DAILY DOSE = 4 TAKE ONE TABLET BY MOUTH EVERY 4 TO 6 HOURS NEEDED MAXIMUM DAILY DOSE = 4 SOLD: 07/16/2020 [facility] Hydroxyzine Hydrochloride 25 MG Oral Tablet HydrOXYzin e HCl 25 MG HydrOXYzine HCl 25 MG 07/16/2020 12:00:00 AM EST 1.0 {tablet_as_needed} active HydrOXYzine HCl 25 MG eCW1 ([facility]) Hydroxyzine Hydrochloride 25 MG Oral Tablet HydrOXYzin e HCl 25 MG HydrOXYzine HCl 25 MG 07/16/2020 12:00:00 AM EST 1.0 {tablet_as_needed} active HydrOXYzine HCl 25 MG eCW1 ([facility]) Hydroxyzine Hydrochloride 25 MG Oral Tablet HydrOXYzin e HCl 25 MG HydrOXYzine HCl 25 MG 07/16/2020 12:00:00 AM EST 1.0 {tablet_as_needed} active HydrOXYzine HCl 25 MG eCW1 ([facility]) Acetaminophen 325 MG / Hydrocodone Niko trate 10 MG Oral Tablet Hydrocodone- Acetaminophen 10-325 MG Hydrocodone-Acetaminophen 10-325 MG 07/10/2020 12:00:0 0 AM EST 1.0 {tablet_as_needed} active Hydrocodone-Acetaminophen 10- 325 MG eCW1 ([facility]) Acetaminophen 325 MG / Hydrocodone Niko trate 10 MG Oral Tablet Hydrocodone- Acetaminophen 10-325 MG Hydrocodone-Acetaminophen 10-325 MG 07/10/2020 12:00:0 0 AM EST 1.0 {tablet_as_needed} active Hydrocodone-Acetaminophen 10- 325 MG eCW1 ([facility]) 25 mg 07/10/2020 12:00:00 AM EST tablet 30 TAKE ONE TABLET BY MOUTH EVERY DAY DIRECTED TAKE ONE TABLET BY MOUTH EVERY DAY DIRECTED SOLD: 021 [facility] Acetaminophen 325 MG / Hydrocodone Niko trate 10 MG Oral Tablet Hydrocodone- Acetaminophen 10-325 MG Hydrocodone-Acetaminophen 10-325 MG 07/10/2020 12:00:0 0 AM EST 1.0 {tablet_as_needed} active Hydrocodone-Acetaminophen 10- 325 MG eCW1 ([facility]) 100 mg 07/05/2020 12:00:00 AM EST tablet 30 TAKE ONE TABLET BY MOUTH EVERY DAY TAKE ONE TABLET BY MOUTH EVERY DAY SOLD: 07/05/2020 [facility] 60 mg 06/27/2020 12:00:00 AM EST capsule,delayed release (DR/EC) 60 TAKE TWO CAPSULES BY MOUTH EVERY DAY TAKE TWO CAPSULES BY MOUTH EVERY DAY SOLD: 07/01/2020 [facility] 10-325 mg 06/17/2020 12:00:00 AM EST tablet 120 TAKE ONE TABLET BY MOUTH EVERY 4 TO 6 HOURS NEEDED * MAXIMUM DAILY DOSE = 4 TAKE ONE TABLET BY MOUTH EVERY 4 TO 6 HOURS NEEDED * MAXIMUM DAILY DOSE = 4 SOLD: 06/17/2020 [facility] Acetaminophen 325 MG / Hydrocodone Niko trate 10 MG Oral Tablet Hydrocodone- Acetaminophen 10-325 MG Hydrocodone-Acetaminophen 10-325 MG 06/14/2020 12:00:0 0 AM EST 1.0 {tablet_as_needed} active Hydrocodone-Acetaminophen 10- 325 MG eCW1 ([facility]) Acetaminophen 325 MG / Hydrocodone Niko trate 10 MG Oral Tablet Hydrocodone- Acetaminophen 10-325 MG Hydrocodone-Acetaminophen 10-325 MG 06/14/2020 12:00:0 0 AM EST 1.0 {tablet_as_needed} active Hydrocodone-Acetaminophen 10- 325 MG eCW1 ([facility]) Acetaminophen 325 MG / Hydrocodone Niko trate 10 MG Oral Tablet Hydrocodone- Acetaminophen 10-325 MG Hydrocodone-Acetaminophen 10-325 MG 06/14/2020 12:00:0 0 AM EST 1.0 {tablet_as_needed} active Hydrocodone-Acetaminophen 10- 325 MG eCW1 ([facility]) 25 mg 06/05/2020 12:00:00 AM EST tablet 30 TAKE ONE TABLET BY MOUTH EVERY DAY DIRECTED TAKE ONE TABLET BY MOUTH EVERY DAY DIRECTED SOLD: 020 [facility] gabapentin 300 MG Oral Capsule Gabapentin 300 MG Gabapentin 300 MG 06/04/2020 12:00:00 AM EST 1.0 {capsule} active G abapentin 300 MG eCW1 ([facility]) gabapentin 300 MG Oral Capsule Gabapentin 300 MG Gabapentin 300 MG 06/04/2020 12:00:00 AM EST 1.0 {capsule} active G abapentin 300 MG eCW1 ([facility]) gabapentin 300 MG Oral Capsule Gabapentin 300 MG Gabapentin 300 MG 06/04/2020 12:00:00 AM EST 1.0 {capsule} active G abapentin 300 MG eCW1 ([facility]) gabapentin 300 MG Oral Capsule Gabapentin 300 MG Gabapentin 300 MG 06/04/2020 12:00:00 AM EST 1.0 {capsule} active G abapentin 300 MG eCW1 ([facility]) gabapentin 300 MG Oral Capsule Gabapentin 300 MG Gabapentin 300 MG 06/04/2020 12:00:00 AM EST 1.0 {capsule} active G abapentin 300 MG eCW1 ([facility]) gabapentin 300 MG Oral Capsule Gabapentin 300 MG Gabapentin 300 MG 06/04/2020 12:00:00 AM EST 1.0 {capsule} active G abapentin 300 MG eCW1 ([facility]) gabapentin 300 MG Oral Capsule Gabapentin 300 MG Gabapentin 300 MG 06/04/2020 12:00:00 AM EST 1.0 {capsule} active G abapentin 300 MG eCW1 ([facility]) gabapentin 300 MG Oral Capsule Gabapentin 300 MG Gabapentin 300 MG 06/04/2020 12:00:00 AM EST 1.0 {capsule} active G abapentin 300 MG eCW1 ([facility]) 100 mg 06/01/2020 12:00:00 AM EST tablet 30 TAKE ONE TABLET BY MOUTH EVERY DAY TAKE ONE TABLET BY MOUTH EVERY DAY SOLD: 06/03/2020 [facility] Nystatin 100 UNT/MG Topical Powder 100,000 unit/gram NYSTATI N 05/26/2020 12:00:00 AM EST powder 15 APPLY TO AFFECTED AREA(S) TWO TIMES A DAY APPLY TO AFFECTED AREA(S) TWO TIMES A DAY SOLD: 05/26/2020 [facility] Nystatin 100 UNT/MG Topical Powder 100,000 unit/gram NYSTATI N 05/26/2020 12:00:00 AM EST powder 15 APPLY TO AFFECTED AREA(S) TWO TIMES A DAY APPLY TO AFFECTED AREA(S) TWO TIMES A DAY SOLD: 07/05/2020 [facility] Nystatin 100 UNT/MG Topical Powder Nystatin 487850 UNI T/GM Nystatin [id number] UNIT/GM 05/25/2020 12:00:00 AM EST 1.0 {application} active Nystatin [id number] UNIT/GM eCW1 ([facility]) Nystatin 100 UNT/MG Topical Powder Nystatin [id number] UNI T/GM Nystatin [id number] UNIT/GM 05/25/2020 12:00:00 AM EST 1.0 {application} active Nystatin [id number] UNIT/GM eCW1 ([facility]) Nystatin 100 UNT/MG Topical Powder Nystatin 654301 UNI T/GM Nystatin 886845 UNIT/GM 05/25/2020 12:00:00 AM EST 1.0 {application} active Nystatin 557976 UNIT/GM eCW1 ([facility]) Nystatin 100 UNT/MG Topical Powder Nystatin 260403 UNI T/GM Nystatin 966792 UNIT/GM 05/25/2020 12:00:00 AM EST 1.0 {application} active Nystatin 242971 UNIT/GM eCW1 ([facility]) Nystatin 100 UNT/MG Topical Powder Nystatin 034581 UNI T/GM Nystatin 714893 UNIT/GM 05/25/2020 12:00:00 AM EST 1.0 {application} active Nystatin 180016 UNIT/GM eCW1 ([facility]) Nystatin 100 UNT/MG Topical Powder Nystatin 131375 UNI T/GM Nystatin 462309 UNIT/GM 05/25/2020 12:00:00 AM EST 1.0 {application} active Nystatin 326679 UNIT/GM eCW1 ([facility]) Nystatin 100 UNT/MG Topical Powder Nystatin 630455 UNI T/GM Nystatin 263017 UNIT/GM 05/25/2020 12:00:00 AM EST 1.0 {application} active Nystatin 599078 UNIT/GM eCW1 ([facility]) Nystatin 100 UNT/MG Topical Powder Nystatin 106287 UNI T/GM Nystatin 375628 UNIT/GM 05/25/2020 12:00:00 AM EST 1.0 {application} active Nystatin 815813 UNIT/GM eCW1 ([facility]) 10-325 mg 05/19/2020 12:00:00 AM EST tablet 120 TAKE 1 TABLET BY MOUTH EVERY 4 TO 6 HOURS NEEDED MAXIMUM DAILY DOSE = 4 TABLETS TAKE 1 TABLET BY MOUTH EVERY 4 TO 6 HOURS NEEDED MAXIMUM DAILY DOSE = 4 TABLETS SOLD: 05/19/2020 [facility] Acetaminophen 325 MG / Hydrocodone Niko trate 10 MG Oral Tablet Hydrocodone- Acetaminophen 10-325 MG Hydrocodone-Acetaminophen 10-325 MG 05/16/2020 12:00:0 0 AM EST 1.0 {tablet_as_needed} active Hydrocodone-Acetaminophen 10- 325 MG eCW1 ([facility]) Acetaminophen 325 MG / Hydrocodone Niko trate 10 MG Oral Tablet Hydrocodone- Acetaminophen 10-325 MG Hydrocodone-Acetaminophen 10-325 MG 05/16/2020 12:00:0 0 AM EST 1.0 {tablet_as_needed} active Hydrocodone-Acetaminophen 10- 325 MG eCW1 ([facility]) 20 mg 05/09/2020 12:00:00 AM EST tablet 180 TAKE TWO TABLETS BY MOUTH EVERY DAY TAKE TWO TABLETS BY MOUTH EVERY DAY SOLD: 05/10/2020 [facility] 2 mg 05/08/2020 12:00:00 AM EST tablet 90 TAKE ONE TABLET BY MOUTH EVERY MORNING TAKE ONE TABLET BY MOUTH EVERY MORNING SOLD: 05/10/2020 [facility] 100 mg 05/02/2020 12:00:00 AM EDT tablet 30 TAKE ONE TABLET BY MOUTH EVERY DAY TAKE ONE TABLET BY MOUTH EVERY DAY SOLD: 05/06/2020 [facility] 90 mcg/actuation 04/27/2020 12:00:00 AM EDT HFA aerosol inha ler 8 INHALE ONE PUFF BY MOUTH EVERY 4 HOURS INHALE ONE PUFF BY MOUTH EVERY 4 HOURS SOLD: 01/21/2021 [facility] 90 mcg/actuation 04/27/2020 12:00:00 AM EDT HFA aerosol inha ler 8 INHALE ONE PUFF BY MOUTH EVERY 4 HOURS INHALE ONE PUFF BY MOUTH EVERY 4 HOURS SOLD: 06/16/2020 [facility] 90 mcg/actuation 04/27/2020 12:00:00 AM EDT HFA aerosol inha ler 8 INHALE ONE PUFF BY MOUTH EVERY 4 HOURS INHALE ONE PUFF BY MOUTH EVERY 4 HOURS SOLD: 07/11/2020 [facility] 90 mcg/actuation 04/27/2020 12:00:00 AM EDT HFA aerosol inha ler 8 INHALE ONE PUFF BY MOUTH EVERY 4 HOURS INHALE ONE PUFF BY MOUTH EVERY 4 HOURS SOLD: 07/26/2020 [facility] 90 mcg/actuation 04/27/2020 12:00:00 AM EDT HFA aerosol inha ler 8 INHALE ONE PUFF BY MOUTH EVERY 4 HOURS INHALE ONE PUFF BY MOUTH EVERY 4 HOURS SOLD: 04/28/2020 [facility] 90 mcg/actuation 04/27/2020 12:00:00 AM EDT HFA aerosol inha ler 8 INHALE ONE PUFF BY MOUTH EVERY 4 HOURS INHALE ONE PUFF BY MOUTH EVERY 4 HOURS SOLD: 06/15/2020 [facility] 60 mg 2020 12:00:00 AM EDT capsule,delayed release (DR/EC) 60 TAKE ONE CAPSULE BY MOUTH TWICE A DAY TAKE ONE CAPSULE BY MOUTH TWICE A DAY SOLD: 06/05/2020 [facility] 60 mg 2020 12:00:00 AM EDT capsule,delayed release (DR/EC) 60 TAKE ONE CAPSULE BY MOUTH TWICE A DAY TAKE ONE CAPSULE BY MOUTH TWICE A DAY SOLD: 04/28/2020 [facility] 10-325 mg 04/20/2020 12:00:00 AM EDT tablet 120 TAKE ONE TABLET BY MOUTH EVERY 4 TO 6 HOURS NEEDED MAXIMUM DAILY DOSE = 4 TAKE ONE TABLET BY MOUTH EVERY 4 TO 6 HOURS NEEDED MAXIMUM DAILY DOSE = 4 SOLD: 04/21/2020 [facility] duloxetine 60 MG Delayed Release Oral Capsule [Cymbalt a] Cymbalta 60 MG Cymbalta 60 MG 04/13/2020 12:00:00 AM EDT 1.0 {capsule} acti ve Cymbalta 60 MG eCW1 ([facility]) duloxetine 60 MG Delayed Release Oral Capsule [Cymbalt a] Cymbalta 60 MG Cymbalta 60 MG 04/13/2020 12:00:00 AM EDT 1.0 {capsule} acti ve Cymbalta 60 MG eCW1 ([facility]) duloxetine 60 MG Delayed Release Oral Capsule [Cymbalt a] Cymbalta 60 MG Cymbalta 60 MG 04/13/2020 12:00:00 AM EDT 1.0 {capsule} acti ve Cymbalta 60 MG eCW1 ([facility]) duloxetine 60 MG Delayed Release Oral Capsule [Cymbalt a] Cymbalta 60 MG Cymbalta 60 MG 04/13/2020 12:00:00 AM EDT 1.0 {capsule} acti ve Cymbalta 60 MG eCW1 ([facility]) 60 mg 03/30/2020 12:00:00 AM EDT capsule,delayed release (DR/EC) 60 TAKE TWO CAPSULES BY MOUTH EVERY DAY TAKE TWO CAPSULES BY MOUTH EVERY DAY SOLD: 04/01/2020 [facility] 100,000 unit/gram 03/30/2020 12:00:00 AM EDT powder 30 APPLY TO AFFECTED AREA(S) ONCE A DAY APPLY TO AFFECTED AREA(S) ONCE A DAY SOLD: 04/01/2020 [facility] 10-325 mg 03/23/2020 12:00:00 AM EDT tablet 168 TAKE ONE TO TWO TABLETS BY MOUTH EVERY 4 TO 6 HOURS MAXIMUM DAILY DOSE = 6 TABLETS TAKE ONE TO TWO TABLETS BY MOUTH EVERY 4 TO 6 HOURS MAXIMUM DAILY DOSE = 6 TABLETS SOLD: 03/23/2020 [facility] 90 mcg/actuation 03/20/2020 12:00:00 AM EDT HFA aerosol inha ler 8 INHALE TWO PUFFS BY MOUTH EVERY 4 TO 6 HOURS INHALE TWO PUFFS BY MOUTH EVERY 4 TO 6 HOURS SOLD: 04/07/2020 [facility] 90 mcg/actuation 03/20/2020 12:00:00 AM EDT HFA aerosol inha ler 8 INHALE TWO PUFFS BY MOUTH EVERY 4 TO 6 HOURS INHALE TWO PUFFS BY MOUTH EVERY 4 TO 6 HOURS SOLD: 03/20/2020 [facility] 60 mg 03/19/2020 12:00:00 AM EDT capsule,delayed release (DR/EC) 30 TAKE ONE CAPSULE BY MOUTH EVERY DAY TAKE ONE CAPSULE BY MOUTH EVERY DAY SOLD: 03/20/2020 [facility] 2 % 03/19/2020 12:00:00 AM EDT cream 60 APPLY TO AFFECTED AREA(S) ONCE DAILY APPLY TO AFFECTED AREA(S) ONCE DAILY SOLD: 07/26/2020 [facility] 2 % 03/19/2020 12:00:00 AM EDT cream 60 APPLY TO AFFECTED AREA(S) ONCE DAILY APPLY TO AFFECTED AREA(S) ONCE DAILY SOLD: 10/21/2020 [facility] 2 % 03/19/2020 12:00:00 AM EDT cream 60 APPLY TO AFFECTED AREA(S) ONCE DAILY APPLY TO AFFECTED AREA(S) ONCE DAILY SOLD: 05/16/2020 [facility] 2 % 03/19/2020 12:00:00 AM EDT cream 60 APPLY TO AFFECTED AREA(S) ONCE DAILY APPLY TO AFFECTED AREA(S) ONCE DAILY SOLD: 04/12/2020 [facility] 2 % 03/19/2020 12:00:00 AM EDT cream 60 APPLY TO AFFECTED AREA(S) ONCE DAILY APPLY TO AFFECTED AREA(S) ONCE DAILY SOLD: 07/01/2020 [facility] 2 % 03/19/2020 12:00:00 AM EDT cream 60 APPLY TO AFFECTED AREA(S) ONCE DAILY APPLY TO AFFECTED AREA(S) ONCE DAILY SOLD: 03/20/2020 [facility] 40 mg 08/15/2019 12:00:00 AM EST tablet 90 TAKE ONE TABLET BY MOUTH EVERY DAY TAKE ONE TABLET BY MOUTH EVERY DAY SOLD: 05/10/2020 [facility] Insurance Providers Payer name Policy type / Coverage type Policy ID Covered republican ID Covered republican's relationship to roca Policy [place] Plan Information MEDICARE [id number] [place] [id number] Self [place] Primary [id number] Self [id number] [place] Primary [id number] Self [id number] [place] Primary [id number] Self [id number] [place] Primary [id number] Self [id number] [place] Medicare Primary [id number] Self [id number] [place] Medicare Primary [id number] Self [id number] [place] Primary [id number] Self [id number] [place] Medicare Primary [id number] Self [id number] [place] Medicare Primary [id number] Self [id number] [place] Medicare Primary [id number] Self [id number] [place] Primary [id number] Self [id number] Medicare [place] Medicare Primary [id number] Self [id number] Medicare [place] Medicare Primary [id number] Self [id number] Medicare P [id number] S [id number] Emp/[facility] Medigap Part B [id number] Family Dependent [id number] Emp/[employer] Medigap Part B [id number] Family Dependent [id number] Emp/[employer] Medigap Part B [id number] Family Dependent [id number] Emp/[employer] Medigap Part B [id number] Family Dependent [id number] Emp/[employer] Medigap Part B [id number] Family Dependent [id number] Emp/[employer] Medigap Part B [id number] Family Depend ent BCBS EMPIRE NELA DIV [id number] UNITED HEALTHCARE [id number] [id number] UNITED HEALTHCARE [id number] BCBS EMPIRE NELA DIV [id number] UNITED HE[employer]CARE S [id number] S [id number] MEDICARE P [id number] S [id number] B MEDICARE [id number] SP [id number] B [id number] BCBS EMPIRE NELA DIV [id number] UNITED [facility] [id number] MEDICARE [id number] SP [id number] UNITED HEALTHCARE [id number] [id number] BCBS EMPIRE NELA DIV [id number] SP [id number] [place] Plan S [id number] S [id number] BCBS EMPIRE NELA DIV 4 SP 4 Medicare P [id number] S [id number] Emp/[employer] Medigap Part B [id number] Family Dependent [id number] Emp/[employer] Medigap Part B [id number] Family Dependent [id number] Emp/[employer] Medigap Part B [id number] Family Dependent [id number] Emp/[employer] Medigap Part B [id number] Family Dependent [id number] Emp/[employer] Medigap Part B [id number] Family Dependent [id number] Emp/[employer] Medigap Part B [id number] Family Dependent [id number] Emp/[employer] Medigap Part B [id number] Family Dependent [id number] Emp/[employer] Medigap Part B [id number] Family Dependent [id number] Problems, Conditions, and Diagnoses Code Display Name Description Problem Type Effective Dates Data Source(s) R13.10 [id number] Dysphagia, unspecified type Problem 01/24/20 12:00:00 AM EDT eCW1 ([facility]) J30.1 [id number] Seasonal allergic rhinitis due to pollen Problem 10/11/2020 12:00:00 AM EDT eCW1 ([facility]) H25.9 [id number] Age-related cataract of both eyes, unspecified age-related cataract type Problem 04/25/2020 12:00:00 AM EDT eCW1 ([facility]) Surgeries/Procedures No Information Results No Information Social History Code Duration Value Status Description Data Source(s ) Smoking 01/17/2021 12:00:00 AM EDT Former Smoker completed Former Smoker eCW1 ([facility]) Smoking 01/17/2021 12:00:00 AM EDT Former Smoker completed Former Smoker eCW1 ([facility]) Smoking 01/17/2021 12:00:00 AM EDT Former Smoker completed Former Smoker eCW1 ([facility]) Smoking 01/17/2021 12:00:00 AM EDT Former Smoker completed Former Smoker eCW1 ([facility]) Smoking 01/17/2021 12:00:00 AM EDT Former Smoker completed Former Smoker eCW1 ([facility]) Smoking 01/17/2021 12:00:00 AM EDT Former Smoker completed Former Smoker eCW1 ([facility]) Smoking 01/17/2021 12:00:00 AM EDT Former Smoker completed Former Smoker eCW1 ([facility]) Smoking 01/17/2021 12:00:00 AM EDT Former Smoker completed Former Smoker eCW1 ([facility]) Smoking 01/17/2021 12:00:00 AM EDT Former Smoker completed Former Smoker eCW1 ([facility]) Smoking 01/10/2021 12:00:00 AM EDT Former Smoker completed Former Smoker eCW1 ([facility]) Smoking 12/14/2020 12:00:00 AM EDT Former Smoker completed Former Smoker eCW1 ([facility]) Smoking 12/14/2020 12:00:00 AM EDT Former Smoker completed Former Smoker eCW1 ([facility]) Smoking 12/14/2020 12:00:00 AM EDT Former Smoker completed Former Smoker eCW1 ([facility]) Smoking 10/11/2020 12:00:00 AM EDT Former Smoker completed Former Smoker eCW1 ([facility]) Smoking 10/11/2020 12:00:00 AM EDT Former Smoker completed Former Smoker eCW1 ([facility]) Smoking 10/11/2020 12:00:00 AM EDT Former Smoker completed Former Smoker eCW1 ([facility]) Smoking 10/11/2020 12:00:00 AM EDT Former Smoker completed Former Smoker eCW1 ([facility]) Smoking 10/11/2020 12:00:00 AM EDT Former Smoker completed Former Smoker eCW1 ([facility]) Smoking 10/11/2020 12:00:00 AM EDT Former Smoker completed Former Smoker eCW1 ([facility]) Smoking 10/11/2020 12:00:00 AM EDT Former Smoker completed Former Smoker eCW1 ([facility]) Smoking 08/24/2020 12:00:00 AM EST Former Smoker completed Former Smoker eCW1 ([facility]) Smoking 08/24/2020 12:00:00 AM EST Former Smoker completed Former Smoker eCW1 ([facility]) Smoking 08/24/2020 12:00:00 AM EST Former Smoker completed Former Smoker eCW1 ([facility]) Smoking 08/24/2020 12:00:00 AM EST Former Smoker completed Former Smoker eCW1 ([facility]) Smoking 05/25/2020 12:00:00 AM EST Former Smoker completed Former Smoker eCW1 ([facility]) Smoking 05/25/2020 12:00:00 AM EST Former Smoker completed Former Smoker eCW1 ([facility]) Smoking 05/25/2020 12:00:00 AM EST Former Smoker completed Former Smoker eCW1 ([facility]) Smoking 05/25/2020 12:00:00 AM EST Former Smoker completed Former Smoker eCW1 ([facility]) Smoking 05/25/2020 12:00:00 AM EST Former Smoker completed Former Smoker eCW1 ([facility]) Smoking 05/25/2020 12:00:00 AM EST Former Smoker completed Former Smoker eCW1 ([facility]) Smoking 05/25/2020 12:00:00 AM EST Former Smoker completed Former Smoker eCW1 ([facility]) Smoking 05/25/2020 12:00:00 AM EST Former Smoker completed Former Smoker eCW1 ([facility]) Smoking 04/19/2020 12:00:00 AM EDT Former Smoker completed Former Smoker eCW1 ([facility]) Smoking 04/19/2020 12:00:00 AM EDT Former Smoker completed Former Smoker eCW1 ([facility]) Smoking 04/19/2020 12:00:00 AM EDT Former Smoker completed Former Smoker eCW1 ([facility]) Vital Signs ID Date Data Source UNK Name Value Range Interpretation Code Description Data Source(s) Body height 62 [in_i] 62 [in_i] eCW1 ([facility]ly [facility]) Body weight 198 [lb_av] 198 [lb_av] eCW1 ([facility]) Body mass index (BMI) [Ratio] 36.21 kg/m2 36.21 kg/m2 eCW1 ([facility]) Heart rate 84 /min 84 /min eCW1 (Pending sale to [facility]) Respiratory rate 19 /min 19 /min eCW1 ([facility]) Body temperature 97.5 [degF] 97.5 [degF] eCW1 ( [facility]) Systolic blood pressure 122 mm[Hg] 122 mm[Hg] e CW1 ([facility]) Diastolic blood pressure 80 mm[Hg] 80 mm[Hg] eCW1 ([facility]) Body mass index (BMI) [Ratio] 36.43 kg/m2 36.43 kg/m2 eCW1 ([facility]) Heart rate 81 /min 81 /min eCW1 (Pending sale to [facility]) Respiratory rate 19 /min 19 /min eCW1 ([facility]) Body temperature 97.4 [degF] 97.4 [degF] eCW1 ( [facility]) Systolic blood pressure 120 mm[Hg] 120 mm[Hg] e CW1 ([facility]) Body weight 199.2 [lb_av] 199.2 [lb_av] eCW1 ([facility]) Body height 62 [in_i] 62 [in_i] eCW1 ([facility]ly [facility]) Diastolic blood pressure 80 mm[Hg] 80 mm[Hg] eCW1 ([facility]) Heart rate 82 /min 82 /min eCW1 (Pending sale to [facility]) Body weight 218.6 [lb_av] 218.6 [lb_av] eCW1 ([facility]) Body height 62 [in_i] 62 [in_i] eCW1 (Formerly [facility]) Body mass index (BMI) [Ratio] 39.98 kg/m2 39.98 kg/m2 eCW1 ([facility]) Respiratory rate 19 /min 19 /min eCW1 ([facility]) Body temperature 98.3 [degF] 98.3 [degF] eCW1 ( [facility]) Systolic blood pressure 128 mm[Hg] 128 mm[Hg] e CW1 ([facility]) Diastolic blood pressure 76 mm[Hg] 76 mm[Hg] eCW1 ([facility]) Body weight 217.8 [lb_av] 217.8 [lb_av] eCW1 ([facility]) Body height 62 [in_i] 62 [in_i] eCW1 ([facility]ly [facility]) Body mass index (BMI) [Ratio] 39.83 kg/m2 39.83 kg/m2 eCW1 ([facility]) Heart rate 117 /min 117 /min eCW1 (Pending sale to [facility]) Respiratory rate 18 /min 18 /min eCW1 ([facility]) Body temperature 98.8 [degF] 98.8 [degF] eCW1 ( [facility]) Systolic blood pressure 110 mm[Hg] 110 mm[Hg] e CW1 ([facility]) Diastolic blood pressure 66 mm[Hg] 66 mm[Hg] eCW1 ([facility]) Patient Treatment Plan of Care Planned Activity Planned Date Details Description Data Source (s) Acetaminophen 325 MG / Hydrocodone Bitartrate 10 MG Or al Tablet 04/23/2021 12:00:00 AM EDT eCW1 (Replaced by [facility]) Acetaminophen 325 MG / Hydrocodone Bitartrate 10 MG Or al Tablet 04/23/2021 12:00:00 AM EDT eCW1 (Replaced by [facility]) Acetaminophen 325 MG / Hydrocodone Bitartrate 10 MG Or al Tablet 03/25/2021 12:00:00 AM EDT eCW1 (Replaced by [facility]) Acetaminophen 325 MG / Hydrocodone Bitartrate 10 MG Or al Tablet 02/16/2021 12:00:00 AM EDT eCW1 (Replaced by [facility]) Acetaminophen 325 MG / Hydrocodone Bitartrate 10 MG Or al Tablet 02/16/2021 12:00:00 AM EDT eCW1 (Replaced by [facility]) Acetaminophen 325 MG / Hydrocodone Bitartrate 10 MG Or al Tablet 01/17/2021 12:00:00 AM EDT eCW1 (Replaced by [facility]) Acetaminophen 325 MG / Hydrocodone Bitartrate 10 MG Or al Tablet 01/17/2021 12:00:00 AM EDT eCW1 (Replaced by [facility]) Acetaminophen 325 MG / Hydrocodone Bitartrate 10 MG Or al Tablet 01/17/2021 12:00:00 AM EDT eCW1 (Replaced by [facility]) Acetaminophen 325 MG / Hydrocodone Bitartrate 10 MG Or al Tablet 01/17/2021 12:00:00 AM EDT eCW1 (Replaced by [facility]) Acetaminophen 325 MG / Hydrocodone Bitartrate 10 MG Or al Tablet 01/04/2021 12:00:00 AM EDT eCW1 (Replaced by [facility]) Acetaminophen 325 MG / Hydrocodone Bitartrate 10 MG Or al Tablet 01/04/2021 12:00:00 AM EDT eCW1 (Replaced by [facility]) Albuterol Sulfate 108 (90 Base) MCG/ACT 12/28/2020 12:00:00 AM EDT eCW1 ([facility]) Albuterol Sulfate 108 (90 Base) MCG/ACT 12/28/2020 12:00:00 AM EDT eCW1 ([facility]) Albuterol Sulfate 108 (90 Base) MCG/ACT 12/28/2020 12:00:00 AM EDT eCW1 ([facility]) Acetaminophen 325 MG / Hydrocodone Bitartrate 10 MG Or al Tablet 11/16/2020 12:00:00 AM EDT eCW1 (Replaced by [facility]) Acetaminophen 325 MG / Hydrocodone Bitartrate 10 MG Or al Tablet 10/22/2020 12:00:00 AM EDT eCW1 (Replaced by [facility]) Acetaminophen 325 MG / Hydrocodone Bitartrate 10 MG Or al Tablet 10/22/2020 12:00:00 AM EDT eCW1 (Replaced by [facility]) Acetaminophen 325 MG / Hydrocodone Bitartrate 10 MG Or al Tablet 10/22/2020 12:00:00 AM EDT eCW1 (Replaced by [facility]) Acetaminophen 325 MG / Hydrocodone Bitartrate 10 MG Or al Tablet 10/22/2020 12:00:00 AM EDT eCW1 (Replaced by [facility]) OneTouch Verio w/Device 10/16/2020 12:00:00 AM EDT eCW1 ([facility]) OneTouch Verio w/Device 10/16/2020 12:00:00 AM EDT eCW1 ([facility]) OneTouch SureSoft Lancing Dev - 10/16/2020 12:00:00 AM EDT eCW1 ([facility]) OneTouch Verio w/Device 10/16/2020 12:00:00 AM EDT eCW1 ([facility]) OneTouch [employer]ancing [employer] - 10/16/2020 12:00:00 AM EDT eCW1 ([facility]) OneTouch Verio w/Device 10/16/2020 12:00:00 AM EDT eCW1 ([facility]) OneTouch [employer]ancing [employer] - 10/16/2020 12:00:00 AM EDT eCW1 ([facility]) OneTouch Verio w/Device 10/16/2020 12:00:00 AM EDT eCW1 ([facility]) OneTouch [employer]ancing [employer] - 10/16/2020 12:00:00 AM EDT eCW1 ([facility]) OneTouch [employer] - 10/16/2020 12:00:00 AM EDT eCW1 ([facility]) OneTouch Verio w/Device 10/16/2020 12:00:00 AM EDT eCW1 ([facility]) OneTouch [employer] - 10/16/2020 12:00:00 AM EDT eCW1 ([facility]) OneTouch Verio w/Device 10/16/2020 12:00:00 AM EDT eCW1 ([facility]) OneTouch [employer] - 10/16/2020 12:00:00 AM EDT eCW1 ([facility]) cetirizine hydrochloride 10 MG Disintegrating Oral Tab let [Zyrtec] 10/11/2020 12:00:00 AM EDT eCW1 (Replaced by [facility]) cetirizine hydrochloride 10 MG Disintegrating Oral Tab let [Zyrtec] 10/11/2020 12:00:00 AM EDT eCW1 (Replaced by [facility]) cetirizine hydrochloride 10 MG Disintegrating Oral Tab let [Zyrtec] 10/11/2020 12:00:00 AM EDT eCW1 (Replaced by [facility]) cetirizine hydrochloride 10 MG Disintegrating Oral Tab let [Zyrtec] 10/11/2020 12:00:00 AM EDT eCW1 (Replaced by [facility]) cetirizine hydrochloride 10 MG Disintegrating Oral Tab let [Zyrtec] 10/11/2020 12:00:00 AM EDT eCW1 (Replaced by [facility]) cetirizine hydrochloride 10 MG Disintegrating Oral Tab let [Zyrtec] 10/11/2020 12:00:00 AM EDT eCW1 (Replaced by [facility]) cetirizine hydrochloride 10 MG Disintegrating Oral Tab let [Zyrtec] 10/11/2020 12:00:00 AM EDT eCW1 (Replaced by [facility]) Acetaminophen 325 MG / Hydrocodone Bitartrate 10 MG Or al Tablet 09/25/2020 12:00:00 AM EDT eCW1 (Replaced by [facility]) Acetaminophen 325 MG / Hydrocodone Bitartrate 10 MG Or al Tablet 09/25/2020 12:00:00 AM EDT eCW1 (Replaced by [facility]) Acetaminophen 325 MG / Hydrocodone Bitartrate 10 MG Or al Tablet 09/25/2020 12:00:00 AM EDT eCW1 (Replaced by [facility]) Acetaminophen 325 MG / Hydrocodone Bitartrate 10 MG Or al Tablet 08/31/2020 12:00:00 AM EST eCW1 (Replaced by [facility]) Acetaminophen 325 MG / Hydrocodone Bitartrate 10 MG Or al Tablet 08/31/2020 12:00:00 AM EST eCW1 (Replaced by [facility]) pregabalin 25 MG Oral Capsule [Lyrica] 08/24/2020 12:00:00 AM EST eCW1 ([facility]) pregabalin 25 MG Oral Capsule [Lyrica] 08/24/2020 12:00:00 AM EST eCW1 ([facility]) pregabalin 25 MG Oral Capsule [Lyrica] 08/24/2020 12:00:00 AM EST eCW1 ([facility]) pregabalin 25 MG Oral Capsule [Lyrica] 08/24/2020 12:00:00 AM EST eCW1 ([facility]) Acetaminophen 325 MG / Hydrocodone Bitartrate 10 MG Or al Tablet 08/07/2020 12:00:00 AM EST eCW1 (Replaced by [facility]) Hydroxyzine Hydrochloride 25 MG Oral Tablet 07/16/2020 12:00:00 AM EST eCW1 ([facility]) Hydroxyzine Hydrochloride 25 MG Oral Tablet 07/16/2020 12:00:00 AM EST eCW1 ([facility]) Hydroxyzine Hydrochloride 25 MG Oral Tablet 07/16/2020 12:00:00 AM EST eCW1 ([facility]) Acetaminophen 325 MG / Hydrocodone Bitartrate 10 MG Or al Tablet 07/10/2020 12:00:00 AM EST eCW1 (Replaced by [facility]) Acetaminophen 325 MG / Hydrocodone Bitartrate 10 MG Or al Tablet 07/10/2020 12:00:00 AM EST eCW1 (Replaced by [facility]) Acetaminophen 325 MG / Hydrocodone Bitartrate 10 MG Or al Tablet 07/10/2020 12:00:00 AM EST eCW1 (Replaced by [facility]) Acetaminophen 325 MG / Hydrocodone Bitartrate 10 MG Or al Tablet 06/14/2020 12:00:00 AM EST eCW1 (Replaced by [facility]) Acetaminophen 325 MG / Hydrocodone Bitartrate 10 MG Or al Tablet 06/14/2020 12:00:00 AM EST eCW1 (Replaced by [facility]) Acetaminophen 325 MG / Hydrocodone Bitartrate 10 MG Or al Tablet 06/14/2020 12:00:00 AM EST eCW1 (Replaced by [facility]) gabapentin 300 MG Oral Capsule 06/04/2020 12:00:00 AM EST eCW1 ([facility]) gabapentin 300 MG Oral Capsule 06/04/2020 12:00:00 AM EST eCW1 ([facility]) gabapentin 300 MG Oral Capsule 06/04/2020 12:00:00 AM EST eCW1 ([facility]) gabapentin 300 MG Oral Capsule 06/04/2020 12:00:00 AM EST eCW1 ([facility]) gabapentin 300 MG Oral Capsule 06/04/2020 12:00:00 AM EST eCW1 ([facility]) gabapentin 300 MG Oral Capsule 06/04/2020 12:00:00 AM EST eCW1 ([facility]) gabapentin 300 MG Oral Capsule 06/04/2020 12:00:00 AM EST eCW1 ([facility]) gabapentin 300 MG Oral Capsule 06/04/2020 12:00:00 AM EST eCW1 ([facility]) Nystatin 100 UNT/MG Topical Powder 05/25/2020 12:00:00 AM EST eCW1 ([facility]) Nystatin 100 UNT/MG Topical Powder 05/25/2020 12:00:00 AM EST eCW1 ([facility]) Nystatin 100 UNT/MG Topical Powder 05/25/2020 12:00:00 AM EST eCW1 ([facility]) Nystatin 100 UNT/MG Topical Powder 05/25/2020 12:00:00 AM EST eCW1 ([facility]) Nystatin 100 UNT/MG Topical Powder 05/25/2020 12:00:00 AM EST eCW1 ([facility]) Nystatin 100 UNT/MG Topical Powder 05/25/2020 12:00:00 AM EST eCW1 ([facility]) Nystatin 100 UNT/MG Topical Powder 05/25/2020 12:00:00 AM EST eCW1 ([facility]) Nystatin 100 UNT/MG Topical Powder 05/25/2020 12:00:00 AM EST eCW1 ([facility]) Acetaminophen 325 MG / Hydrocodone Bitartrate 10 MG Or al Tablet 05/16/2020 12:00:00 AM EST eCW1 (Replaced by [facility]) duloxetine 60 MG Delayed Release Oral Capsule [Cymbalt a] 04/13/2020 12:00:00 AM EDT eCW1 (Replaced by [facility]) duloxetine 60 MG Delayed Release Oral Capsule [Cymbalt a] 04/13/2020 12:00:00 AM EDT eCW1 (Replaced by [facility]) duloxetine 60 MG Delayed Release Oral Capsule [Cymbalt a] 04/13/2020 12:00:00 AM EDT eCW1 (Replaced by [facility])
[2021-05-20] MEDS ORDERED: LOSA100T50 (13:48)
[2021-05-20] MEDS ORDERED: HYDR-3719 (13:48)
[2021-05-20] MEDS ORDERED: FURO20TA2 (13:48)
[2021-05-20] MEDS ORDERED: HYDR-3363 (13:48)
[2021-05-20] MEDS ORDERED: JANU25TA (13:48)
--- OUTSIDE RECORDS SUMMARY | 2021-05-20 15:24 | CCD ---
Author [facility] Organization [facility] Address Unknown Phone Unavailable Care Team Providers Care Museum Attendant Name Role Phone Susi SHAH MD Unavailable [...] is protected by Article 27-F of the [facility] Public Health law. If you continue you may have access to information: Regarding HIV / AIDS; Provided by facilities licensed or operated by the [facility] Office of Mental Health; or Provided by the [facility] Office for People With Developmental Disabilities. If such information is present, then the following [facility] mandated warning applies: This information has been [...] law may result in a fine or skilled nursing sentence or both. A general authorization for the release of medical or other information is NOT sufficient authorization for further disc losure. Family History Family Member Name Family Member Gender Family Member Status Date o f Status Description Data Source(s) Unknown Female Problem [facility] ([facility] Encounters Encounter Providers Location Date Indications Data Source(s ) Unknown [address] [facility] [place] [address] 05/08/2021 12:00:00 AM EDT eCW1 ([facility]) Unknown [address] [facility] [place] [address] 04/22/2021 12:00:00 AM EDT eCW1 ([facility]) Unknown [address] [facility] [place] [address] 03/25/2021 12:00:00 AM EDT eCW1 ([facility]) Unknown [address] [facility] [place] [address] 02/11/2021 12:00:00 AM EDT eCW1 ([facility]) Unknown [address] [facility] [place] [address] 02/01/2021 12:00:00 AM EDT eCW1 ([facility]) Unknown [address] [facility] [place] [address] 01/22/2021 12:00:00 AM EDT eCW1 ([facility]) Outpatient [address] [facility] [place] [address] 01/17/2021 12:00:00 AM EDT eCW1 ([facility]) Outpatient [address] [facility] [place] [address] 01/11/2021 12:00:00 AM EDT eCW1 ([facility]) Unknown [address] [facility] [place] [address] 01/04/2021 12:00:00 AM EDT eCW1 ([facility]) Unknown [address] [facility] [place] [address] 01/02/2021 12:00:00 AM EDT eCW1 ([facility]) Unknown [address] [facility] [place] [address] 12/28/2020 12:00:00 AM EDT eCW1 ([facility]) Unknown [address] [facility] [place] [address] 12/20/2020 12:00:00 AM EDT eCW1 ([facility]) Unknown [address] [facility] [place] [address] 12/10/2020 12:00:00 AM EDT eCW1 ([facility]) Unknown [address] [facility] [place] [address] 11/14/2020 12:00:00 AM EDT eCW1 ([facility]) Unknown [address] [facility] [place] [address] 10/24/2020 12:00:00 AM EDT eCW1 ([facility]) Unknown [address] [facility] [place] [address] 10/22/2020 12:00:00 AM EDT eCW1 ([facility]) Unknown [address] [facility] [place] [address] 10/19/2020 12:00:00 AM EDT eCW1 [facility] [place] [address] [facility] [place] [address] 10/19/2020 12:00:00 AM EDT eCW1 ([facility]) Unknown [address] [facility] [place] [address] 10/16/2020 12:00:00 AM EDT eCW1 ([facility]) Outpatient [address] [facility] [place] [address] 10/11/2020 12:00:00 AM EDT eCW1 ([facility]) Unknown [address] [facility] [place] [address] 10/04/2020 12:00:00 AM EDT eCW1 ([facility]) Unknown [address] [facility] [place] [address] 09/24/2020 12:00:00 AM EDT eCW1 ([facility]) Unknown [address] [facility] [place] [address] 08/30/2020 12:00:00 AM EST eCW1 ([facility]) TeleMedicine Phone E/M by Phys 21-30 Min [address] [place] [address] 08/24/2020 12:00:00 AM EST eCW1 ([facility]) Unknown [address] [facility] [place] [address] 08/07/2020 12:00:00 AM EST eCW1 ([facility]) Unknown [address] [facility] [place] [address] 07/17/2020 12:00:00 AM EST eCW1 ([facility]) Unknown [address] [facility] [place] [address] 07/11/2020 12:00:00 AM EST eCW1 ([facility]) Unknown [address] [facility] [place] [address] 07/09/2020 12:00:00 AM EST eCW1 ([facility]) Unknown [address] [facility] [place] [address] 06/18/2020 12:00:00 AM EST eCW1 ([facility]) Unknown [address] [facility] [place] [address] 06/13/2020 12:00:00 AM EST eCW1 ([facility]) Unknown [address] [facility] [place] [address] 06/04/2020 12:00:00 AM EST eCW1 ([facility]) Outpatient [address] [facility] [place] [address] 05/25/2020 12:00:00 AM EST eCW1 ([facility]) Unknown [address] [facility] [place] [address] 05/15/2020 12:00:00 AM EST eCW1 ([facility]) Unknown [address] [facility] [place] [address] 05/01/2020 12:00:00 AM EDT eCW1 ([facility]) Outpatient Attender: PAMELA TORRES 04/27/2020 12:02:[address] [facility] Unknown [address] [facility] [place] [address] 04/19/2020 12:00:00 AM EDT [facility]CW1 [facility] [address] [facility] [place] [address] 04/10/2020 12:00:00 AM EDT eCW1 ([facility]) Immunizations Vaccine Date Status Description Data Source(s) COVID-19 VACCINE Moderna 09/10/2020 12:00:00 AM EST completed [facility] Vaccine Series Complete: YESThis Data wa s Submitted to [facility] Via [email or web address]. COVID-19 VACCINE, MRNA-1273, LNP-S (MODERNA)/PF 09/10/2020 1 2:00:00 AM EST completed [facility] COVID-19 VACCINE Moderna 08/13/2020 12:00:00 AM EST completed [facility] Vaccine Series Complete: NOThis Data was Submitted to [facility] Via [email or web address]. COVID-19 VACCINE, MRNA-1273, LNP-S (MODERNA)/PF 08/13/2020 1 [...] 1.0 {tablet_as_needed} active HYDROcodone-Acetaminophen 10- 325 MG [facility] ([facility]) Acetaminophen 325 MG / Hydrocodone Niko trate 10 MG Oral Tablet HYDROcodone- Acetaminophen 10-325 MG HYDROcodone-Acetaminophen 10-325 MG 04/23/2021 12:00:0 0 AM EDT 1.0 {tablet_as_needed} active HYDROcodone-Acetaminophen 10- 325 MG eCW1 ([facility]) Acetaminophen 325 MG / Hydrocodone Bitartrate 10 MG Or al Tablet 10-325 mg HYDROCODONE/ACETAMINOPHEN 03/26/2021 12:00:00 AM EDT tablet 120 TAKE ONE TABLET BY MOUTH EVERY 6 HOURS NEEDED MAXIMUM DAILY DOSE = 4 TABLETS TAKE ONE TABLET BY MOUTH EVERY 6 HOURS NEEDED MAXIMUM DAILY DOSE = 4 TABLETS SOLD: 03/26/2021 [facility] Acetaminophen 325 MG / Hydrocodone Niko trate 10 MG Oral Tablet HYDROcodone- Acetaminophen 10-325 MG HYDROcodone-Acetaminophen 10-325 MG 03/25/2021 12:00:0 0 AM EDT 1.0 {tablet_as_needed} active HYDROcodone-Acetaminophen 10- 325 MG eCW1 ([facility]) Acetaminophen 325 MG / Hydrocodone Bitartrate 10 MG Or al Tablet 10-325 mg HYDROCODONE/ACETAMINOPHEN 02/16/2021 12:00:00 AM EDT tablet 120 TAKE ONE TABLET BY MOUTH EVERY 4 TO 6 HOURS NEEDED MAXIMUM DAILY DOSE = 6 TABLETS TAKE ONE TABLET BY MOUTH EVERY 4 TO 6 HOURS NEEDED MAXIMUM DAILY DOSE = 6 TABLETS SOLD: 02/16/2021 [facility] Acetaminophen 325 MG / Hydrocodone Niko trate 10 MG Oral Tablet HYDROcodone- Acetaminophen 10-325 MG HYDROcodone-Acetaminophen 10-325 MG 02/16/2021 12:00:0 0 AM EDT 1.0 {tablet_as_needed} active HYDROcodone-Acetaminophen 10- 325 MG eCW1 ([facility]) Acetaminophen 325 MG / Hydrocodone Niko trate 10 MG Oral Tablet HYDROcodone- Acetaminophen 10-325 MG HYDROcodone-Acetaminophen 10-325 MG 02/16/2021 12:00:0 0 AM EDT 1.0 {tablet_as_needed} active HYDROcodone-Acetaminophen 10- 325 MG eCW1 ([facility]) 2 mg 01/21/2021 12:00:00 AM EDT tablet 90 TAKE ONE TABLET BY MOUTH EVERY MORNING TAKE ONE TABLET BY MOUTH EVERY MORNING SOLD: 01/21/2021 [facility] Citalopram 20 MG Oral Tablet CITALOPRAM HYDROBROMIDE 01/21/2021 12:00:00 AM EDT tablet 90 TAKE ONE TABLET BY MOUTH EVERY E VENING TAKE ONE TABLET BY MOUTH EVERY EVENING SOLD: 01/21/2021 [facility] Acetaminophen 325 MG / Hydrocodone Bitartrate [...] {tablet_as_needed} active HYDROcodone-Acetaminophen 10- 325 MG eCW1 ([facility]) Acetaminophen 325 MG / Hydrocodone Niko trate 10 MG Oral Tablet HYDROcodone- Acetaminophen 10-325 MG HYDROcodone-Acetaminophen 10-325 MG 01/17/2021 12:00:0 0 AM EDT 1.0 {tablet_as_needed} active HYDROcodone-Acetaminophen 10- 325 MG eCW1 ([facility]) Acetaminophen 325 MG / Hydrocodone Niko trate 10 MG Oral Tablet HYDROcodone- Acetaminophen 10-325 MG HYDROcodone-Acetaminophen 10-325 MG 01/17/2021 12:00:0 0 AM EDT 1.0 {tablet_as_needed} active HYDROcodone-Acetaminophen 10- 325 MG eCW1 ([facility]) Acetaminophen 325 MG / Hydrocodone Niko trate 10 MG Oral Tablet HYDROcodone- Acetaminophen 10-325 MG HYDROcodone-Acetaminophen 10-325 MG 01/17/2021 12:00:0 0 AM EDT 1.0 {tablet_as_needed} active HYDROcodone-Acetaminophen 10- 325 MG eCW1 ([facility]) Acetaminophen 325 MG / Hydrocodone Bitartrate 10 [...] {tablet_as_needed} active HYDROcodone-Acetaminophen 10- 325 MG eCW1 ([facility]) Acetaminophen 325 MG / Hydrocodone Niko trate 10 MG Oral Tablet HYDROcodone- Acetaminophen 10-325 MG HYDROcodone-Acetaminophen 10-325 MG 01/04/2021 12:00:0 0 AM EDT 1.0 {tablet_as_needed} active HYDROcodone-Acetaminophen 10- 325 MG eCW1 ([facility]) 90 mcg/actuation 01/01/2021 12:00:00 AM EDT aerosol [...] Sulfa te 108 (90 Base) MCG/ACT eCW1 ([facility]) Albuterol Sulfate 108 (90 Base) MCG/ACT UNK 12/28/2020 12: 00:00 AM EDT 1.0 {puff_as_needed} active Albuterol Sulfa te 108 (90 Base) MCG/ACT eCW1 ([facility]) Albuterol Sulfate 108 (90 Base) MCG/ACT UNK 12/28/2020 12: 00:00 AM EDT 1.0 {puff_as_needed} active Albuterol Sulfa te 108 (90 Base) MCG/ACT eCW1 ([facility]) Albuterol Sulfate 108 (90 Base) MCG/ACT UNK 12/28/2020 12: 00:00 AM EDT 1.0 {puff_as_needed} active Albuterol Sulfa te 108 (90 Base) MCG/ACT eCW1 ([facility]) Albuterol Sulfate 108 (90 Base) MCG/ACT UNK 12/28/2020 12: 00:00 AM EDT 1.0 {puff_as_needed} active Albuterol Sulfa te 108 (90 Base) MCG/ACT eCW1 ([facility]) Albuterol Sulfate 108 (90 Base) MCG/ACT UNK 12/28/2020 12: 00:00 AM EDT 1.0 {puff_as_needed} active Albuterol Sulfa te 108 (90 Base) MCG/ACT eCW1 ([facility]) Albuterol Sulfate 108 (90 Base) MCG/ACT UNK 12/28/2020 12: 00:00 AM EDT 1.0 {puff_as_needed} active Albuterol Sulfa te 108 (90 Base) MCG/ACT eCW1 ([facility]) Albuterol Sulfate 108 (90 Base) MCG/ACT UNK 12/28/2020 12: 00:00 AM EDT 1.0 {puff_as_needed} active Albuterol Sulfa te 108 (90 Base) MCG/ACT eCW1 ([facility]) Albuterol Sulfate 108 (90 Base) MCG/ACT UNK 12/28/2020 12: 00:00 AM EDT 1.0 {puff_as_needed} active Albuterol Sulfa te 108 (90 Base) MCG/ACT eCW1 ([facility]) Albuterol Sulfate 108 (90 Base) MCG/ACT UNK 12/28/2020 12: 00:00 AM EDT 1.0 {puff_as_needed} active Albuterol Sulfa te 108 (90 Base) MCG/ACT eCW1 ([facility]) Albuterol Sulfate 108 (90 Base) MCG/ACT UNK 12/28/2020 12: 00:00 AM EDT 1.0 {puff_as_needed} active Albuterol Sulfa te 108 (90 Base) MCG/ACT eCW1 ([facility]) Albuterol Sulfate 108 (90 Base) MCG/ACT UNK 12/28/2020 12: 00:00 AM EDT 1.0 {puff_as_needed} active Albuterol Sulfa te 108 (90 Base) MCG/ACT eCW1 ([facility]) Acetaminophen 325 MG / Hydrocodone Bitartrate 10 [...] {tablet_as_needed} active HYDROcodone-Acetaminophen 10- 325 MG eCW1 ([facility]) Acetaminophen 325 MG / Hydrocodone Bitartrate 10 [...] {tablet_as_needed} active Hydrocodone-Acetaminophen 10- 325 MG eCW1 ([facility]) Acetaminophen 325 MG / Hydrocodone Niko trate 10 MG Oral Tablet HYDROcodone- Acetaminophen 10-325 MG HYDROcodone-Acetaminophen 10-325 MG 11/16/2020 12:00:0 0 AM EDT 1.0 {tablet_as_needed} active HYDROcodone-Acetaminophen 10- 325 MG eCW1 ([facility]) 100 mg 11/05/2020 12:00:00 AM EDT tablet [...] {tablet_as_needed} active Hydrocodone-Acetaminophen 10- 325 MG eCW1 ([facility]) Acetaminophen 325 MG / Hydrocodone Niko trate 10 MG Oral Tablet Hydrocodone- Acetaminophen 10-325 MG Hydrocodone-Acetaminophen 10-325 MG 10/22/2020 12:00:0 0 AM EDT 1.0 {tablet_as_needed} active Hydrocodone-Acetaminophen 10- 325 MG eCW1 ([facility]) Acetaminophen 325 MG / Hydrocodone Bitartrate 10 [...] {tablet_as_needed} active Hydrocodone-Acetaminophen 10- 325 MG eCW1 ([facility]) Acetaminophen 325 MG / Hydrocodone Niko trate 10 MG Oral Tablet Hydrocodone- Acetaminophen 10-325 MG Hydrocodone-Acetaminophen 10-325 MG 10/22/2020 12:00:0 0 AM EDT 1.0 {tablet_as_needed} active Hydrocodone-Acetaminophen 10- 325 MG eCW1 ([facility]) BLOOD-GLUCOSE METER 10/17/2020 12:00:00 AM EDT misc 1 USE DIRECTED USE DIRECTED SOLD: 10/18/2020 [facility] 33 gauge 10/17/2020 12:00:00 AM EDT misc 100 USE DIRECTED USE DIRECTED SOLD: 10/18/2020 [facility] OneTouch Verio w/Device OneTouch Verio w/Device 10/16/2020 12:00:00 A M EDT active OneTouch Verio w/Dev ice eCW1 ([facility]) OneTouch Verio w/Device OneTouch Verio w/Device 10/16/2020 12:00:00 A M EDT active OneTouch Verio w/Dev ice eCW1 ([facility]) OneTouch Verio w/Device OneTouch Verio w/Device 10/16/2020 12:00:00 A M EDT active OneTouch Verio w/Dev ice eCW1 ([facility]) OneTouch SureSoft Lancing Dev - OneTouch SureSoft Lancing De v - 10/16/2020 12:00:00 AM EDT active [employer] - eCW1 ([facility]) OneTouch Verio w/Device OneTouch Verio w/Device 10/16/2020 12:00:00 A M EDT active OneTouch Verio w/Dev ice eCW1 ([facility]) OneTouch Verio w/Device OneTouch Verio w/Device 10/16/2020 12:00:00 A M EDT active OneTouch Verio w/Dev ice eCW1 ([facility]) OneTouch [employer] Lancing [employer] - OneTouch [employer] Lancing De v - 10/16/2020 12:00:00 AM EDT active [employer] - eCW1 ([facility]) OneTouch [employer] Dev - One[employer] Lancing De v - 10/16/2020 12:00:00 AM EDT active [employer] - eCW1 ([facility]) OneTouch Verio w/Device OneTouch Verio w/Device 10/16/2020 12:00:00 A M EDT active OneTouch Verio w/Dev ice eCW1 ([facility]) OneTouch [employer] - OneTouch [employer] Lancing De v - 10/16/2020 12:00:00 AM EDT active [employer] - eCW1 ([facility]) OneTouch [employer] L[employer] Dev - OneTouch Sure[employer] Lancing De v - 10/16/2020 12:00:00 AM EDT active [employer] - eCW1 ([facility]) OneTouch [employer] - OneTouch Sure[employer] Lancing De v - 10/16/2020 12:00:00 AM EDT active [employer] - eCW1 ([facility]) OneTouch Verio w/Device OneTouch Verio w/Device 10/16/2020 12:00:00 A M EDT active OneTouch Verio w/Dev ice eCW1 ([facility]) OneTouch Verio w/Device OneTouch Verio w/Device 10/16/2020 12:00:00 A M EDT active OneTouch Verio w/Dev ice eCW1 ([facility]) OneTouch [employer] - OneTouch SureSoft Lancing De v - 10/16/2020 12:00:00 AM EDT active [employer] - eCW1 ([facility]) OneTouch [employer] L[employer] Dev - OneTouch Sure[employer] Lancing De v - 10/16/2020 12:00:00 AM EDT active [employer] - eCW1 ([facility]) OneTouch Sure[employer] Lancing Dev - OneTouch SureSoft Lancing De v - 10/16/2020 12:00:00 AM EDT active [employer] - eCW1 ([facility]) OneTouch [employer] L[employer] Dev - OneTouch SureSoft Lancing De v - 10/16/2020 12:00:00 AM EDT active [employer] - eCW1 ([facility]) OneTouch Verio w/Device OneTouch Verio w/Device 10/16/2020 12:00:00 A M EDT active OneTouch Verio w/Dev ice eCW1 ([facility]) OneTouch [employer] L[employer] Dev - OneTouch SureSoft Lancing De v - 10/16/2020 12:00:00 AM EDT active [employer] - eCW1 ([facility]) OneTouch [employer] - OneTouch Sure[employer] Lancing De v - 10/16/2020 12:00:00 AM EDT active [employer] - eCW1 ([facility]) OneTouch Verio w/Device OneTouch Verio w/Device 10/16/2020 12:00:00 A M EDT active OneTouch Verio w/Dev ice eCW1 ([facility]) OneTouch Verio w/Device OneTouch Verio w/Device 10/16/2020 12:00:00 A M EDT active OneTouch Verio w/Dev ice eCW1 ([facility]) OneTouch Verio w/Device OneTouch Verio w/Device 10/16/2020 12:00:00 A M EDT active OneTouch Verio w/Dev ice eCW1 ([facility]) [employer] - OneTouch SureSoft Lancing De v - 10/16/2020 12:00:00 AM EDT active [employer] - eCW1 ([facility]) OneTouch Verio w/Device OneTouch Verio w/Device 10/16/2020 12:00:00 A M EDT active OneTouch Verio w/Dev ice eCW1 ([facility]) OneTouch [employer] - OneTouch SureSoft Lancing De v - 10/16/2020 12:00:00 AM EDT active [employer] - eCW1 ([facility]) OneTouch [employer] - OneTouch SureSoft Lancing De v - 10/16/2020 12:00:00 AM EDT active [employer] - eCW1 ([facility]) OneTouch [employer] - OneTouch SureSoft Lancing De v - 10/16/2020 12:00:00 AM EDT active [employer] - eCW1 ([facility]) OneTouch Verio w/Device OneTouch Verio w/Device 10/16/2020 12:00:00 A M EDT active OneTouch Verio w/Dev ice eCW1 ([facility]) One[employer] - OneTouch SureSoft Lancing De v - 10/16/2020 12:00:00 AM EDT active [employer] - eCW1 ([facility]) OneTouch Verio w/Device OneTouch Verio w/Device 10/16/2020 12:00:00 A M EDT active OneTouch Verio w/Dev ice eCW1 ([facility]) OneTouch Verio w/Device OneTouch Verio w/Device 10/16/2020 12:00:00 A M EDT active OneTouch Verio w/Dev ice eCW1 ([facility]) OneTouch Verio w/Device OneTouch Verio w/Device 10/16/2020 12:00:00 A M EDT active OneTouch Verio w/Dev ice eCW1 ([facility]) OneTouch [employer] - OneTouch SureSoft Lancing De v - 10/16/2020 12:00:00 AM EDT active [employer] - eCW1 ([facility]) OneTouch Verio w/Device OneTouch Verio w/Device 10/16/2020 12:00:00 A M EDT active OneTouch Verio w/Dev ice eCW1 ([facility]) OneTouch Verio w/Device OneTouch Verio w/Device 10/16/2020 12:00:00 A M EDT active OneTouch Verio w/Dev ice eCW1 ([facility]) OneTouch [employer] - OneTouch SureSoft Lancing De v - 10/16/2020 12:00:00 AM EDT active [employer] - eCW1 ([facility]) OneTouch [employer] - OneTouch SureSoft Lancing De v - 10/16/2020 12:00:00 AM EDT active [employer] - eCW1 ([facility]) OneTouch Verio w/Device OneTouch Verio w/Device 10/16/2020 12:00:00 A M EDT active OneTouch Verio w/Dev ice eCW1 ([facility]) cetirizine hydrochloride 10 MG Disintegr ating Oral Tablet [Zyrtec] ZyrTEC Allergy 10 MG ZyrTEC Allergy 10 MG 10/11/2020 12:00:00 AM EDT 1.0 {tablet_on_the_tongue_and_allow_to_dissolve} activ e ZyrTEC Allergy 10 MG eCW1 ([facility]) cetirizine hydrochloride 10 MG Disintegr ating Oral Tablet [Zyrtec] ZyrTEC Allergy 10 MG ZyrTEC Allergy 10 MG 10/11/2020 12:00:00 AM EDT 1.0 {tablet_on_the_tongue_and_allow_to_dissolve} activ e ZyrTEC Allergy 10 MG eCW1 ([facility]) cetirizine hydrochloride 10 MG Disintegr ating Oral Tablet [Zyrtec] ZyrTEC Allergy 10 MG ZyrTEC Allergy 10 MG 10/11/2020 12:00:00 AM EDT 1.0 {tablet_on_the_tongue_and_allow_to_dissolve} activ e ZyrTEC Allergy 10 MG eCW1 ([facility]) cetirizine hydrochloride 10 MG Disintegr ating Oral Tablet [Zyrtec] ZyrTEC Allergy 10 MG ZyrTEC Allergy 10 MG 10/11/2020 12:00:00 AM EDT 1.0 {tablet_on_the_tongue_and_allow_to_dissolve} activ e ZyrTEC Allergy 10 MG eCW1 ([facility]) 50 mg 10/11/2020 12:00:00 AM EDT capsule [...] activ e Zyrtec Allergy 10 MG eCW1 ([facility]) cetirizine hydrochloride 10 MG Disintegr ating Oral Tablet [Zyrtec] ZyrTEC Allergy 10 MG ZyrTEC Allergy 10 MG 10/11/2020 12:00:00 AM EDT 1.0 {tablet_on_the_tongue_and_allow_to_dissolve} activ e ZyrTEC Allergy 10 MG eCW1 ([facility]) cetirizine hydrochloride 10 MG Disintegr ating Oral Tablet [Zyrtec] ZyrTEC Allergy 10 MG ZyrTEC Allergy 10 MG 10/11/2020 12:00:00 AM EDT 1.0 {tablet_on_the_tongue_and_allow_to_dissolve} activ e ZyrTEC Allergy 10 MG eCW1 ([facility]) cetirizine hydrochloride 10 MG Disintegr ating Oral Tablet [Zyrtec] ZyrTEC Allergy 10 MG ZyrTEC Allergy 10 MG 10/11/2020 12:00:00 AM EDT 1.0 {tablet_on_the_tongue_and_allow_to_dissolve} activ e ZyrTEC Allergy 10 MG eCW1 ([facility]) cetirizine hydrochloride 10 MG Disintegr ating Oral Tablet [Zyrtec] Zyrtec Allergy 10 MG Zyrtec Allergy 10 MG 10/11/2020 12:00:00 AM EDT 1.0 {tablet_on_the_tongue_and_allow_to_dissolve} activ e Zyrtec Allergy 10 MG eCW1 ([facility]) cetirizine hydrochloride 10 MG Disintegr ating Oral Tablet [Zyrtec] Zyrtec Allergy 10 MG Zyrtec Allergy 10 MG 10/11/2020 12:00:00 AM EDT 1.0 {tablet_on_the_tongue_and_allow_to_dissolve} activ e Zyrtec Allergy 10 MG eCW1 ([facility]) cetirizine hydrochloride 10 MG Disintegr ating Oral Tablet [Zyrtec] ZyrTEC Allergy 10 MG ZyrTEC Allergy 10 MG 10/11/2020 12:00:00 AM EDT 1.0 {tablet_on_the_tongue_and_allow_to_dissolve} activ e ZyrTEC Allergy 10 MG eCW1 ([facility]) cetirizine hydrochloride 10 MG Disintegr ating Oral Tablet [Zyrtec] ZyrTEC Allergy 10 MG ZyrTEC Allergy 10 MG 10/11/2020 12:00:00 AM EDT 1.0 {tablet_on_the_tongue_and_allow_to_dissolve} activ e ZyrTEC Allergy 10 MG eCW1 ([facility]) cetirizine hydrochloride 10 MG Disintegr ating Oral Tablet [Zyrtec] Zyrtec Allergy 10 MG Zyrtec Allergy 10 MG 10/11/2020 12:00:00 AM EDT 1.0 {tablet_on_the_tongue_and_allow_to_dissolve} activ e Zyrtec Allergy 10 MG eCW1 ([facility]) cetirizine hydrochloride 10 MG Disintegr ating Oral Tablet [Zyrtec] ZyrTEC Allergy 10 MG ZyrTEC Allergy 10 MG 10/11/2020 12:00:00 AM EDT 1.0 {tablet_on_the_tongue_and_allow_to_dissolve} activ e ZyrTEC Allergy 10 MG eCW1 ([facility]) cetirizine hydrochloride 10 MG Disintegr ating Oral Tablet [Zyrtec] ZyrTEC Allergy 10 MG ZyrTEC Allergy 10 MG 10/11/2020 12:00:00 AM EDT 1.0 {tablet_on_the_tongue_and_allow_to_dissolve} activ e ZyrTEC Allergy 10 MG eCW1 ([facility]) cetirizine hydrochloride 10 MG Disintegr ating Oral Tablet [Zyrtec] Zyrtec Allergy 10 MG Zyrtec Allergy 10 MG 10/11/2020 12:00:00 AM EDT 1.0 {tablet_on_the_tongue_and_allow_to_dissolve} activ e Zyrtec Allergy 10 MG eCW1 ([facility]) cetirizine hydrochloride 10 MG Disintegr ating Oral Tablet [Zyrtec] ZyrTEC Allergy 10 MG ZyrTEC Allergy 10 MG 10/11/2020 12:00:00 AM EDT 1.0 {tablet_on_the_tongue_and_allow_to_dissolve} activ e ZyrTEC Allergy 10 MG eCW1 ([facility]) cetirizine hydrochloride 10 MG Disintegr ating Oral Tablet [Zyrtec] Zyrtec Allergy 10 MG Zyrtec Allergy 10 MG 10/11/2020 12:00:00 AM EDT 1.0 {tablet_on_the_tongue_and_allow_to_dissolve} activ e Zyrtec Allergy 10 MG eCW1 ([facility]) cetirizine hydrochloride 10 MG Disintegr ating Oral Tablet [Zyrtec] ZyrTEC Allergy 10 MG ZyrTEC Allergy 10 MG 10/11/2020 12:00:00 AM EDT 1.0 {tablet_on_the_tongue_and_allow_to_dissolve} activ e ZyrTEC Allergy 10 MG eCW1 ([facility]) cetirizine hydrochloride 10 MG Disintegr ating Oral Tablet [Zyrtec] Zyrtec Allergy 10 MG Zyrtec Allergy 10 MG 10/11/2020 12:00:00 AM EDT 1.0 {tablet_on_the_tongue_and_allow_to_dissolve} activ e Zyrtec Allergy 10 MG eCW1 ([facility]) 100 mg 10/08/2020 12:00:00 AM EDT tablet [...] {tablet_as_needed} active Hydrocodone-Acetaminophen 10- 325 MG eCW1 ([facility]) Acetaminophen 325 MG / Hydrocodone Niko trate 10 MG Oral Tablet Hydrocodone- Acetaminophen 10-325 MG Hydrocodone-Acetaminophen 10-325 MG 09/25/2020 12:00:0 0 AM EDT 1.0 {tablet_as_needed} active Hydrocodone-Acetaminophen 10- 325 MG eCW1 ([facility]) Acetaminophen 325 MG / Hydrocodone Niko trate 10 MG Oral Tablet Hydrocodone- Acetaminophen 10-325 MG Hydrocodone-Acetaminophen 10-325 MG 09/25/2020 12:00:0 0 AM EDT 1.0 {tablet_as_needed} active Hydrocodone-Acetaminophen 10- 325 MG eCW1 ([facility]) 10-325 mg 09/25/2020 12:00:00 AM EDT tablet [...] {tablet_as_needed} active Hydrocodone-Acetaminophen 10- 325 MG eCW1 ([facility]) 100 mg 09/05/2020 12:00:00 AM EST tablet 30 TAKE ONE TABLET BY MOUTH EVERY DAY TAKE ONE TABLET BY MOUTH EVERY DAY SOLD: 09/12/2020 [facility] Acetaminophen 325 MG / Hydrocodone Niko trate 10 MG Oral Tablet Hydrocodone- Acetaminophen 10-325 MG Hydrocodone-Acetaminophen 10-325 MG 08/31/2020 12:00:0 0 AM EST 1.0 {tablet_as_needed} active Hydrocodone-Acetaminophen 10- 325 MG eCW1 ([facility]) 25 mg 08/31/2020 12:00:00 AM EST tablet 30 TAKE ONE TABLET BY MOUTH EVERY DAY DIRECTED TAKE ONE TABLET BY MOUTH EVERY DAY DIRECTED SOLD: [facility] Acetaminophen 325 MG / Hydrocodone Niko trate 10 MG Oral Tablet Hydrocodone- Acetaminophen 10-325 MG Hydrocodone-Acetaminophen 10-325 MG 08/31/2020 12:00:0 0 AM EST 1.0 {tablet_as_needed} active Hydrocodone-Acetaminophen 10- 325 MG eCW1 ([facility]) 10-325 mg 08/31/2020 12:00:00 AM EST tablet [...] {capsule} active L yrica 25 MG eCW1 ([facility]) pregabalin 25 MG Oral Capsule [Lyrica] Lyrica 25 MG Lyrica 2 5 MG 08/24/2020 12:00:00 AM EST 1.0 {capsule} active L yrica 25 MG eCW1 ([facility]) pregabalin 25 MG Oral Capsule [Lyrica] Lyrica 25 MG Lyrica 2 5 MG 08/24/2020 12:00:00 AM EST 1.0 {capsule} active L yrica 25 MG eCW1 ([facility]) 25 mg 08/24/2020 12:00:00 AM EST capsule [...] {capsule} active L yrica 25 MG eCW1 ([facility]) 2 % 08/17/2020 12:00:00 AM EST cream [...] 4 HOURS A S NEEDED SOLD: 10/27/2020 [facility] 20 mg 08/16/2020 12:00:00 [...] {tablet_as_needed} active Hydrocodone-Acetaminophen 10- 325 MG eCW1 ([facility]) 10-325 mg 08/07/2020 12:00:00 AM EST tablet [...] TABLET BY MOUTH EVERY MORNING SOLD: 08/02/2020 [email or web address] Citalopram 20 MG Oral Tablet CITALOPRAM HYDROBROMIDE [...] {tablet_as_needed} active HydrOXYzine HCl 25 MG eCW1 ([facility]) Hydroxyzine Hydrochloride 25 MG Oral Tablet HydrOXYzin e HCl 25 MG HydrOXYzine HCl 25 MG 07/16/2020 12:00:00 AM EST 1.0 {tablet_as_needed} active HydrOXYzine HCl 25 MG eCW1 ([facility]) Hydroxyzine Hydrochloride 25 MG Oral Tablet HydrOXYzin e HCl 25 MG HydrOXYzine HCl 25 MG 07/16/2020 12:00:00 AM EST 1.0 {tablet_as_needed} active HydrOXYzine HCl 25 MG eCW1 ([facility]) Acetaminophen 325 MG / Hydrocodone Niko trate 10 MG Oral Tablet Hydrocodone- Acetaminophen 10-325 MG Hydrocodone-Acetaminophen 10-325 MG 07/10/2020 12:00:0 0 AM EST 1.0 {tablet_as_needed} active Hydrocodone-Acetaminophen 10- 325 MG eCW1 ([facility]) Acetaminophen 325 MG / Hydrocodone Niko trate 10 MG Oral Tablet Hydrocodone- Acetaminophen 10-325 MG Hydrocodone-Acetaminophen 10-325 MG 07/10/2020 12:00:0 0 AM EST 1.0 {tablet_as_needed} active Hydrocodone-Acetaminophen 10- 325 MG eCW1 ([facility]) 25 mg 07/10/2020 12:00:00 AM EST tablet 30 TAKE ONE TABLET BY MOUTH EVERY DAY DIRECTED TAKE ONE TABLET BY MOUTH EVERY DAY DIRECTED SOLD: 021 [facility] Acetaminophen 325 MG / Hydrocodone Niko trate 10 MG Oral Tablet Hydrocodone- Acetaminophen 10-325 MG Hydrocodone-Acetaminophen 10-325 MG 07/10/2020 12:00:0 0 AM EST 1.0 {tablet_as_needed} active Hydrocodone-Acetaminophen 10- 325 MG eCW1 ([facility]) 100 mg 07/05/2020 12:00:00 AM EST tablet 30 TAKE ONE TABLET BY MOUTH EVERY DAY TAKE ONE TABLET BY MOUTH EVERY DAY SOLD: 07/05/2020 [facility] 60 mg 06/27/2020 12:00:00 AM EST [...] {tablet_as_needed} active Hydrocodone-Acetaminophen 10- 325 MG eCW1 ([facility]) Acetaminophen 325 MG / Hydrocodone Niko trate 10 MG Oral Tablet Hydrocodone- Acetaminophen 10-325 MG Hydrocodone-Acetaminophen 10-325 MG 06/14/2020 12:00:0 0 AM EST 1.0 {tablet_as_needed} active Hydrocodone-Acetaminophen 10- 325 MG eCW1 ([facility]) Acetaminophen 325 MG / Hydrocodone Niko trate 10 MG Oral Tablet Hydrocodone- Acetaminophen 10-325 MG Hydrocodone-Acetaminophen 10-325 MG 06/14/2020 12:00:0 0 AM EST 1.0 {tablet_as_needed} active Hydrocodone-Acetaminophen 10- 325 MG eCW1 ([facility]) 25 mg 06/05/2020 12:00:00 AM EST tablet 30 TAKE ONE TABLET BY MOUTH EVERY DAY DIRECTED TAKE ONE TABLET BY MOUTH EVERY DAY DIRECTED SOLD: 020 [facility] gabapentin 300 MG Oral Capsule Gabapentin 300 MG Gabapentin 300 MG 06/04/2020 12:00:00 AM EST 1.0 {capsule} active G abapentin 300 MG eCW1 ([facility]) gabapentin 300 MG Oral Capsule Gabapentin 300 MG Gabapentin 300 MG 06/04/2020 12:00:00 AM EST 1.0 {capsule} active G abapentin 300 MG eCW1 ([facility]) gabapentin 300 MG Oral Capsule Gabapentin 300 MG Gabapentin 300 MG 06/04/2020 12:00:00 AM EST 1.0 {capsule} active G abapentin 300 MG eCW1 ([facility]) gabapentin 300 MG Oral Capsule Gabapentin 300 MG Gabapentin 300 MG 06/04/2020 12:00:00 AM EST 1.0 {capsule} active G abapentin 300 MG eCW1 ([facility]) gabapentin 300 MG Oral Capsule Gabapentin 300 MG Gabapentin 300 MG 06/04/2020 12:00:00 AM EST 1.0 {capsule} active G abapentin 300 MG eCW1 ([facility]) gabapentin 300 MG Oral Capsule Gabapentin 300 MG Gabapentin 300 MG 06/04/2020 12:00:00 AM EST 1.0 {capsule} active G abapentin 300 MG eCW1 ([facility]) gabapentin 300 MG Oral Capsule Gabapentin 300 MG Gabapentin 300 MG 06/04/2020 12:00:00 AM EST 1.0 {capsule} active G abapentin 300 MG eCW1 ([facility]) gabapentin 300 MG Oral Capsule Gabapentin 300 MG Gabapentin 300 MG 06/04/2020 12:00:00 AM EST 1.0 {capsule} active G abapentin 300 MG eCW1 ([facility]) 100 mg 06/01/2020 12:00:00 AM EST tablet 30 TAKE ONE TABLET BY MOUTH EVERY DAY TAKE ONE TABLET BY MOUTH EVERY DAY SOLD: 06/03/2020 [facility] Nystatin 100 UNT/MG Topical Powder 100,000 [...] Drugs Nystatin 100 UNT/MG Topical Powder Nystatin 225263 UNI T/GM Nystatin 361052 UNIT/GM 05/25/2020 12:00:00 AM EST 1.0 {application} active Nystatin 100144 UNIT/GM eCW1 ([facility]) Nystatin 100 UNT/MG Topical Powder Nystatin 833833 UNI T/GM Nystatin 340561 UNIT/GM 05/25/2020 12:00:00 AM EST 1.0 {application} active Nystatin 451221 UNIT/GM eCW1 ([facility]) Nystatin 100 UNT/MG Topical Powder Nystatin 468596 UNI T/GM Nystatin 622256 UNIT/GM 05/25/2020 12:00:00 AM EST 1.0 {application} active Nystatin 231425 UNIT/GM eCW1 ([facility]) Nystatin 100 UNT/MG Topical Powder Nystatin 862756 UNI T/GM Nystatin 229892 UNIT/GM 05/25/2020 12:00:00 AM EST 1.0 {application} active Nystatin 586278 UNIT/GM eCW1 ([facility]) Nystatin 100 UNT/MG Topical Powder Nystatin 938682 UNI T/GM Nystatin 684640 UNIT/GM 05/25/2020 12:00:00 AM EST 1.0 {application} active Nystatin 920124 UNIT/GM eCW1 ([facility]) Nystatin 100 UNT/MG Topical Powder Nystatin 857261 UNI T/GM Nystatin 318819 UNIT/GM 05/25/2020 12:00:00 AM EST 1.0 {application} active Nystatin 313603 UNIT/GM eCW1 ([facility]) Nystatin 100 UNT/MG Topical Powder Nystatin 599523 UNI T/GM Nystatin 301242 UNIT/GM 05/25/2020 12:00:00 AM EST 1.0 {application} active Nystatin 846571 UNIT/GM eCW1 ([facility]) Nystatin 100 UNT/MG Topical Powder Nystatin 220892 UNI T/GM Nystatin 219237 UNIT/GM 05/25/2020 12:00:00 AM EST 1.0 {application} active Nystatin 837917 UNIT/GM eCW1 ([facility]) 10-325 mg 05/19/2020 12:00:00 AM EST tablet [...] {tablet_as_needed} active Hydrocodone-Acetaminophen 10- 325 MG eCW1 ([facility]) Acetaminophen 325 MG / Hydrocodone Niko trate 10 MG Oral Tablet Hydrocodone- Acetaminophen 10-325 MG Hydrocodone-Acetaminophen 10-325 MG 05/16/2020 12:00:0 0 AM EST 1.0 {tablet_as_needed} active Hydrocodone-Acetaminophen 10- 325 MG eCW1 ([facility]) 20 mg 05/09/2020 12:00:00 AM EST tablet [...] BY MOUTH EVERY 4 HOURS SOLD: 04/28/2020 [facility] 90 mcg/actuation 04/27/2020 12:00:00 AM [...] {capsule} acti ve Cymbalta 60 MG eCW1 ([facility]) duloxetine 60 MG Delayed Release Oral Capsule [Cymbalt a] Cymbalta 60 MG Cymbalta 60 MG 04/13/2020 12:00:00 AM EDT 1.0 {capsule} acti ve Cymbalta 60 MG eCW1 ([facility]) duloxetine 60 MG Delayed Release Oral Capsule [Cymbalt a] Cymbalta 60 MG Cymbalta 60 MG 04/13/2020 12:00:00 AM EDT 1.0 {capsule} acti ve Cymbalta 60 MG eCW1 ([facility]) duloxetine 60 MG Delayed Release Oral Capsule [Cymbalt a] Cymbalta 60 MG Cymbalta 60 MG 04/13/2020 12:00:00 AM EDT 1.0 {capsule} acti ve Cymbalta 60 MG eCW1 ([facility]) 60 mg 03/30/2020 12:00:00 AM EDT capsule,delayed [...] type / Coverage type Policy ID Covered democrat ID Covered democrat's relationship to roca Policy [place] Plan Information MEDICARE [id number] [place] [id number] Self [place] Primary [id number] Self [id number] [place] Primary [id number] Self [id number] [place] Primary [id number] Self [id number] [place] Primary [id number] Self [id number] [place] Primary [id number] Self [id number] [place] Primary [id number] Self [id number] [place] Primary [id number] Self [id number] [place] Primary [id number] Self [id number] [place] Primary [id number] Self [id number] [place] Primary [id number] Self [id number] [place] Primary [id number] Self [id number] [place] Primary [id number] Self [id number] [place] Primary [id number] Self [id number] Medicare P [id number] S [id number] [id number] Emp/[facility] Medigap Part B [id number] Family Dependent [id number] Emp/[employer] Medigap Part B [id number] Family Dependent [id number] Emp/[employer] Medigap Part B [id number] Family Dependent [id number] Emp/[employer] Medigap Part B [id number] Family Dependent [id number] Emp/[employer] Medigap Part B [id number] Family Dependent [id number] Emp/[employer] Medigap Part B [id number] Family Depend ent BCBS EMPIRE NELA DIV [id number] [id number] UNITED HEALTHCARE [id number] [id number] UNITED HEALTHCARE [id number] [id number] BCBS EMPIRE NELA DIV [id number] [id number] UNITED [employer]ARE S [id number] S [id number] MEDICARE P [id number] S [id number] B MEDICARE [id number] SP [id number] B [id number] BCBS EMPIRE NELA DIV [id number] [id number] [facility] [id number] MEDICARE [id number] SP [id number] [employer] [id number] [id number] BCBS EMPIRE NELA DIV [id number] SP [id number] [place] Plan S [id number] S [id number] BCBS EMPIRE NELA DIV 4 SP 4 Medicare P [id number] S [id number] Emp/[employer] Medigap Part B [id number] Family Dependent [id number] Emp/[employer] Medigap Part B [id number] Family Dependent [id number] Emp/[employer] Medigap Part B [id number] Family Dependent [id number] Emp/[employer] Medigap Part B [id number] Family Dependent [id number] Emp/[employer] Medigap Part B [id number] Family Dependent [id number] Emp/[employer] Medigap Part B [id number] Family Dependent [id number] Emp/[employer] Medigap Part B [id number] Family Dependent [id number] Emp/[employer] Medigap Part B [id number] Family Dependent [id number] Problems, Conditions, and Diagnoses Code Display Name Description Problem Type Effective Dates Data Source(s) R13.10 [id number] Dysphagia, unspecified type Problem 01/24/20 12:00:00 AM EDT eCW1 ([facility]) J30.1 [id number] Seasonal allergic rhinitis due to pollen Problem 10/11/2020 12:00:00 AM EDT eCW1 ([facility]) H25.9 [id number] Age-related cataract of both eyes, unspecified age-related cataract type Problem 04/25/2020 12:00:00 AM EDT eCW1 ([facility]) Surgeries/Procedures No Information Results No Information Social History Code Duration Value Status Description Data Source(s ) Smoking 01/17/2021 12:00:00 AM EDT Former Smoker completed Former Smoker eCW1 ([facility]) Smoking 01/17/2021 12:00:00 AM EDT Former Smoker completed Former Smoker eCW1 ([facility]) Smoking 01/17/2021 12:00:00 AM EDT Former Smoker completed Former Smoker eCW1 ([facility]) Smoking 01/17/2021 12:00:00 AM EDT Former Smoker completed Former Smoker eCW1 ([facility]) Smoking 01/17/2021 12:00:00 AM EDT Former Smoker completed Former Smoker eCW1 ([facility]) Smoking 01/17/2021 12:00:00 AM EDT Former Smoker completed Former Smoker eCW1 ([facility]) Smoking 01/17/2021 12:00:00 AM EDT Former Smoker completed Former Smoker eCW1 ([facility]) Smoking 01/17/2021 12:00:00 AM EDT Former Smoker completed Former Smoker eCW1 ([facility]) Smoking 01/17/2021 12:00:00 AM EDT Former Smoker completed Former Smoker eCW1 ([facility]) Smoking 01/10/2021 12:00:00 AM EDT Former Smoker completed Former Smoker eCW1 ([facility]) Smoking 12/14/2020 12:00:00 AM EDT Former Smoker completed Former Smoker eCW1 ([facility]) Smoking 12/14/2020 12:00:00 AM EDT Former Smoker completed Former Smoker eCW1 ([facility]) Smoking 12/14/2020 12:00:00 AM EDT Former Smoker completed Former Smoker eCW1 ([facility]) Smoking 10/11/2020 12:00:00 AM EDT Former Smoker completed Former Smoker eCW1 ([facility]) Smoking 10/11/2020 12:00:00 AM EDT Former Smoker completed Former Smoker eCW1 ([facility]) Smoking 10/11/2020 12:00:00 AM EDT Former Smoker completed Former Smoker eCW1 ([facility]) Smoking 10/11/2020 12:00:00 AM EDT Former Smoker completed Former Smoker eCW1 ([facility]) Smoking 10/11/2020 12:00:00 AM EDT Former Smoker completed Former Smoker eCW1 ([facility]) Smoking 10/11/2020 12:00:00 AM EDT Former Smoker completed Former Smoker eCW1 ([facility]) Smoking 10/11/2020 12:00:00 AM EDT Former Smoker completed Former Smoker eCW1 ([facility]) Smoking 08/24/2020 12:00:00 AM EST Former Smoker completed Former Smoker eCW1 ([facility]) Smoking 08/24/2020 12:00:00 AM EST Former Smoker completed Former Smoker eCW1 ([facility]) Smoking 08/24/2020 12:00:00 AM EST Former Smoker completed Former Smoker eCW1 ([facility]) Smoking 08/24/2020 12:00:00 AM EST Former Smoker completed Former Smoker eCW1 ([facility]) Smoking 05/25/2020 12:00:00 AM EST Former Smoker completed Former Smoker eCW1 ([facility]) Smoking 05/25/2020 12:00:00 AM EST Former Smoker completed Former Smoker eCW1 ([facility]) Smoking 05/25/2020 12:00:00 AM EST Former Smoker completed Former Smoker eCW1 ([facility]) Smoking 05/25/2020 12:00:00 AM EST Former Smoker completed Former Smoker eCW1 ([facility]) Smoking 05/25/2020 12:00:00 AM EST Former Smoker completed Former Smoker eCW1 ([facility]) Smoking 05/25/2020 12:00:00 AM EST Former Smoker completed Former Smoker eCW1 ([facility]) Smoking 05/25/2020 12:00:00 AM EST Former Smoker completed Former Smoker eCW1 ([facility]) Smoking 05/25/2020 12:00:00 AM EST Former Smoker completed Former Smoker eCW1 ([facility]) Smoking 04/19/2020 12:00:00 AM EDT Former Smoker completed Former Smoker eCW1 ([facility]) Smoking 04/19/2020 12:00:00 AM EDT Former Smoker completed Former Smoker eCW1 ([facility]) Smoking 04/19/2020 12:00:00 AM EDT Former Smoker completed Former Smoker eCW1 ([facility]) Vital Signs ID Date Data Source UNK Name Value Range Interpretation Code Description Data Source(s) Body weight 198 [lb_av] 198 [lb_av] [facility] Body height 62 [in_i] 62 [in_i] eCW1 ([facility]) Body mass index (BMI) [Ratio] 36.21 kg/m2 36.21 kg/m2 eCW1 ([facility]) Heart rate 84 /min 84 /min eCW1 ([facility]) Respiratory rate 19 /min 19 /min eCW1 ([facility]) Body temperature 97.5 [degF] 97.5 [degF] eCW1 ( [facility]) Systolic blood pressure 122 mm[Hg] 122 mm[Hg] e CW1 ([facility]) Diastolic blood pressure 80 mm[Hg] 80 mm[Hg] eCW1 ([facility]) Body weight 199.2 [lb_av] 199.2 [lb_av] eCW1 ([facility]) Body height 62 [in_i] 62 [in_i] eCW1 ([facility]) Body mass index (BMI) [Ratio] 36.43 kg/m2 36.43 kg/m2 eCW1 ([facility]) Heart rate 81 /min 81 /min eCW1 ([facility]) Respiratory rate 19 /min 19 /min eCW1 ([facility]) Body temperature 97.4 [degF] 97.4 [degF] eCW1 ( [facility]) Systolic blood pressure 120 mm[Hg] 120 mm[Hg] e CW1 ([facility]) Diastolic blood pressure 80 mm[Hg] 80 mm[Hg] eCW1 ([facility]) Body weight 218.6 [lb_av] 218.6 [lb_av] eCW1 ([facility]) Body height 62 [in_i] 62 [in_i] eCW1 ([facility]) Body mass index (BMI) [Ratio] 39.98 kg/m2 39.98 kg/m2 eCW1 ([facility]) Heart rate 82 /min 82 /min eCW1 ([facility]) Respiratory rate 19 /min 19 /min eCW1 ([facility]) Body temperature 98.3 [degF] 98.3 [degF] eCW1 ( [facility]) Systolic blood pressure 128 mm[Hg] 128 mm[Hg] e CW1 ([facility]) Diastolic blood pressure 76 mm[Hg] 76 mm[Hg] eCW1 ([facility]) Body weight 217.8 [lb_av] 217.8 [lb_av] eCW1 ([facility]) Body height 62 [in_i] 62 [in_i] eCW1 ([facility]) Body mass index (BMI) [Ratio] 39.83 kg/m2 39.83 kg/m2 eCW1 ([facility]) Heart rate 117 /min 117 /min eCW1 ([facility]) Respiratory rate 18 /min 18 /min eCW1 ([facility]) Body temperature 98.8 [degF] 98.8 [degF] eCW1 ( [facility]) Systolic blood pressure 110 mm[Hg] 110 mm[Hg] e CW1 ([facility]) Diastolic blood pressure 66 mm[Hg] 66 mm[Hg] eCW1 ([facility]) Patient Treatment Plan of Care Planned Activity Planned Date Details Description Data Source (s) Acetaminophen 325 MG / Hydrocodone Bitartrate 10 MG Or al Tablet 04/23/2021 12:00:00 AM EDT eCW1 ([facility]) Acetaminophen 325 MG / Hydrocodone Bitartrate 10 MG Or al Tablet 04/23/2021 12:00:00 AM EDT eCW1 ([facility]) Acetaminophen 325 MG / Hydrocodone Bitartrate 10 MG Or al Tablet 03/25/2021 12:00:00 AM EDT eCW1 ([facility]) Acetaminophen 325 MG / Hydrocodone Bitartrate 10 MG Or al Tablet 02/16/2021 12:00:00 AM EDT eCW1 ([facility]) Acetaminophen 325 MG / Hydrocodone Bitartrate 10 MG Or al Tablet 02/16/2021 12:00:00 AM EDT eCW1 ([facility]) Acetaminophen 325 MG / Hydrocodone Bitartrate 10 MG Or al Tablet 01/17/2021 12:00:00 AM EDT eCW1 ([facility]) Acetaminophen 325 MG / Hydrocodone Bitartrate 10 MG Or al Tablet 01/17/2021 12:00:00 AM EDT eCW1 ([facility]) Acetaminophen 325 MG / Hydrocodone Bitartrate 10 MG Or al Tablet 01/17/2021 12:00:00 AM EDT eCW1 ([facility]) Acetaminophen 325 MG / Hydrocodone Bitartrate 10 MG Or al Tablet 01/17/2021 12:00:00 AM EDT eCW1 ([facility]) Acetaminophen 325 MG / Hydrocodone Bitartrate 10 MG Or al Tablet 01/04/2021 12:00:00 AM EDT eCW1 ([facility]) Acetaminophen 325 MG / Hydrocodone Bitartrate 10 MG Or al Tablet 01/04/2021 12:00:00 AM EDT eCW1 ([facility]) Albuterol Sulfate 108 (90 Base) MCG/ACT 12/28/2020 12:00:00 AM EDT eCW1 ([facility]) Albuterol Sulfate 108 (90 Base) MCG/ACT 12/28/2020 12:00:00 AM EDT eCW1 ([facility]) Albuterol Sulfate 108 (90 Base) MCG/ACT 12/28/2020 12:00:00 AM EDT eCW1 ([facility]) Acetaminophen 325 MG / Hydrocodone Bitartrate 10 MG Or al Tablet 11/16/2020 12:00:00 AM EDT eCW1 ([facility]) Acetaminophen 325 MG / Hydrocodone Bitartrate 10 MG Or al Tablet 10/22/2020 12:00:00 AM EDT eCW1 ([facility]) Acetaminophen 325 MG / Hydrocodone Bitartrate 10 MG Or al Tablet 10/22/2020 12:00:00 AM EDT eCW1 ([facility]) Acetaminophen 325 MG / Hydrocodone Bitartrate 10 MG Or al Tablet 10/22/2020 12:00:00 AM EDT eCW1 ([facility]) Acetaminophen 325 MG / Hydrocodone Bitartrate 10 MG Or al Tablet 10/22/2020 12:00:00 AM EDT eCW1 ([facility]) OneTouch Verio w/Device 10/16/2020 12:00:00 AM EDT eCW1 ([facility]) OneTouch Verio w/Device 10/16/2020 12:00:00 AM EDT eCW1 ([facility]) OneTouch SureSoft Lancing Dev - 10/16/2020 12:00:00 AM EDT eCW1 ([facility]) OneTouch Verio w/Device 10/16/2020 12:00:00 AM EDT eCW1 ([facility]) OneTouch [employer] - 10/16/2020 12:00:00 AM EDT eCW1 ([facility]) OneTouch Verio w/Device 10/16/2020 12:00:00 AM EDT eCW1 ([facility]) OneTouch [employer] - 10/16/2020 12:00:00 AM EDT eCW1 ([facility]) OneTouch Verio w/Device 10/16/2020 12:00:00 AM EDT [facility]CW[facility] [facility] OneTouch SureSoft Lancing Dev - 10/16/2020 12:00:00 AM EDT eCW1 ([facility]) OneTouch SureSoft Lancing Dev - 10/16/2020 12:00:00 AM EDT eCW1 ([facility]) OneTouch Verio w/Device 10/16/2020 12:00:00 AM EDT eCW1 ([facility]) OneTouch SureSoft Lancing Dev - 10/16/2020 12:00:00 AM EDT eCW1 ([facility]) OneTouch Verio w/Device 10/16/2020 12:00:00 AM EDT eCW1 ([facility]) OneTouch SureSoft Lancing Dev - 10/16/2020 12:00:00 AM EDT eCW1 ([facility]) cetirizine hydrochloride 10 MG Disintegrating Oral Tab let [Zyrtec] 10/11/2020 12:00:00 AM EDT eCW1 ([facility]) cetirizine hydrochloride 10 MG Disintegrating Oral Tab let [Zyrtec] 10/11/2020 12:00:00 AM EDT eCW1 ([facility]) cetirizine hydrochloride 10 MG Disintegrating Oral Tab let [Zyrtec] 10/11/2020 12:00:00 AM EDT eCW1 ([facility]) cetirizine hydrochloride 10 MG Disintegrating Oral Tab let [Zyrtec] 10/11/2020 12:00:00 AM EDT eCW1 ([facility]) cetirizine hydrochloride 10 MG Disintegrating Oral Tab let [Zyrtec] 10/11/2020 12:00:00 AM EDT eCW1 ([facility]) cetirizine hydrochloride 10 MG Disintegrating Oral Tab let [Zyrtec] 10/11/2020 12:00:00 AM EDT eCW1 ([facility]) cetirizine hydrochloride 10 MG Disintegrating Oral Tab let [Zyrtec] 10/11/2020 12:00:00 AM EDT eCW1 ([facility]) Acetaminophen 325 MG / Hydrocodone Bitartrate 10 MG Or al Tablet 09/25/2020 12:00:00 AM EDT eCW1 ([facility]) Acetaminophen 325 MG / Hydrocodone Bitartrate 10 MG Or al Tablet 09/25/2020 12:00:00 AM EDT eCW1 ([facility]) Acetaminophen 325 MG / Hydrocodone Bitartrate 10 MG Or al Tablet 09/25/2020 12:00:00 AM EDT eCW1 ([facility]) Acetaminophen 325 MG / Hydrocodone Bitartrate 10 MG Or al Tablet 08/31/2020 12:00:00 AM EST eCW1 ([facility]) Acetaminophen 325 MG / Hydrocodone Bitartrate 10 MG Or al Tablet 08/31/2020 12:00:00 AM EST eCW1 ([facility]) pregabalin 25 MG Oral Capsule [Lyrica] 08/24/2020 12:00:00 AM EST eCW1 ([facility]) pregabalin 25 MG Oral Capsule [Lyrica] 08/24/2020 12:00:00 AM EST eCW1 ([facility]) pregabalin 25 MG Oral Capsule [Lyrica] 08/24/2020 12:00:00 AM EST eCW1 ([facility]) pregabalin 25 MG Oral Capsule [Lyrica] 08/24/2020 12:00:00 AM EST eCW1 ([facility]) Acetaminophen 325 MG / Hydrocodone Bitartrate 10 MG Or al Tablet 08/07/2020 12:00:00 AM EST eCW1 ([facility]) Hydroxyzine Hydrochloride 25 MG Oral Tablet 07/16/2020 12:00:00 AM EST eCW1 ([facility]) Hydroxyzine Hydrochloride 25 MG Oral Tablet 07/16/2020 12:00:00 AM EST eCW1 ([facility]) Hydroxyzine Hydrochloride 25 MG Oral Tablet 07/16/2020 12:00:00 AM EST eCW1 ([facility]) Acetaminophen 325 MG / Hydrocodone Bitartrate 10 MG Or al Tablet 07/10/2020 12:00:00 AM EST eCW1 ([facility]) Acetaminophen 325 MG / Hydrocodone Bitartrate 10 MG Or al Tablet 07/10/2020 12:00:00 AM EST eCW1 ([facility]) Acetaminophen 325 MG / Hydrocodone Bitartrate 10 MG Or al Tablet 07/10/2020 12:00:00 AM EST eCW1 ([facility]) Acetaminophen 325 MG / Hydrocodone Bitartrate 10 MG Or al Tablet 06/14/2020 12:00:00 AM EST eCW1 ([facility]) Acetaminophen 325 MG / Hydrocodone Bitartrate 10 MG Or al Tablet 06/14/2020 12:00:00 AM EST eCW1 ([facility]) Acetaminophen 325 MG / Hydrocodone Bitartrate 10 MG Or al Tablet 06/14/2020 12:00:00 AM EST eCW1 ([facility]) gabapentin 300 MG Oral Capsule 06/04/2020 12:00:00 AM EST eCW1 ([facility]) gabapentin 300 MG Oral Capsule 06/04/2020 12:00:00 AM EST eCW1 ([facility]) gabapentin 300 MG Oral Capsule 06/04/2020 12:00:00 AM EST eCW1 ([facility]) gabapentin 300 MG Oral Capsule 06/04/2020 12:00:00 AM EST eCW1 ([facility]) gabapentin 300 MG Oral Capsule 06/04/2020 12:00:00 AM EST eCW1 ([facility]) gabapentin 300 MG Oral Capsule 06/04/2020 12:00:00 AM EST eCW1 ([facility]) gabapentin 300 MG Oral Capsule 06/04/2020 12:00:00 AM EST eCW1 ([facility]) gabapentin 300 MG Oral Capsule 06/04/2020 12:00:00 AM EST eCW1 ([facility]) Nystatin 100 UNT/MG Topical Powder 05/25/2020 12:00:00 AM EST eCW1 ([facility]) Nystatin 100 UNT/MG Topical Powder 05/25/2020 12:00:00 AM EST eCW1 ([facility]) Nystatin 100 UNT/MG Topical Powder 05/25/2020 12:00:00 AM EST eCW1 ([facility]) Nystatin 100 UNT/MG Topical Powder 05/25/2020 12:00:00 AM EST eCW1 ([facility]) Nystatin 100 UNT/MG Topical Powder 05/25/2020 12:00:00 AM EST eCW1 ([facility]) Nystatin 100 UNT/MG Topical Powder 05/25/2020 12:00:00 AM EST eCW1 ([facility]) Nystatin 100 UNT/MG Topical Powder 05/25/2020 12:00:00 AM EST eCW1 ([facility]) Nystatin 100 UNT/MG Topical Powder 05/25/2020 12:00:00 AM EST eCW1 ([facility]) Acetaminophen 325 MG / Hydrocodone Bitartrate 10 MG Or al Tablet 05/16/2020 12:00:00 AM EST eCW1 ([facility]) duloxetine 60 MG Delayed Release Oral Capsule [Cymbalt a] 04/13/2020 12:00:00 AM EDT eCW1 ([facility]) duloxetine 60 MG Delayed Release Oral Capsule [Cymbalt a] 04/13/2020 12:00:00 AM EDT eCW1 ([facility]) duloxetine 60 MG Delayed Release Oral Capsule [Cymbalt a] 04/13/2020 12:00:00 AM EDT eCW1 ([facility])
[2021-05-20 15:49] VITALS: BP 152/89
== END 2021-05-20 15:50 | disposition home or self-care (01) ==
LOC: M ED 13:31
DX: F43.20 Adjustment disorder, unspecified (principal); F03.90 Unspecified dementia, unspecified severity, without behavioral disturbance, psychotic disturbance, mood disturbance, and anxiety; E11.9 Type 2 diabetes mellitus without complications; I10 Essential (primary) hypertension; E78.5 Hyperlipidemia, unspecified

== ENCOUNTER 2021-05-29 09:01 | Emergency (ER) | payer MEDICARE, BC, OTHER ==
[~2021-05-29] VITALS: Ht 144.8 cm; Wt 86.3 kg
[~2021-05-29 09:01] MED LIST: FURO20TA2 PO; HYDR-3363; HYDR-3719 PO; JANU25TA PO; LOSA100T50 PO
--- OUTSIDE RECORDS SUMMARY | 2021-05-29 10:12 | CCD ---
Author Author [facility] Organization [facility] Address Unknown Phone Unavailable Care Team Providers Care Sales Research Analyst Name Role Phone Leeanne Yang Unavailable PROBLEMS Type Condition ICD9-CM Code [id number] Code Onset Dates Condition S tatus W/U Status Risk SNOMED Code Notes Problem Morbid obesity E66.01 Active confirmed 36462 6002 Problem Other chronic pain G89.29 Active confirmed 8 [id number] Problem Chronic pain syndrome G89.4 Active confirmed 111920993 Problem Hypercholesterolemia E78.00 Active confirmed 04431864 Problem Obstructive sleep apnea G47.33 Active confirmed 41801082 Problem Generalized anxiety disorder F41.1 Active confirme d 04329450 Problem Seasonal allergic rhinitis due to pollen J30.1 Active confirmed 19516227 Problem 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 Active confirmed 24131718 Problem Dysphagia, unspecified type R13.10 Active confirmed 34407845 Problem Type 2 diabetes mellitus wit hout complication, without long-term current use of insulin E11.9 Active confirmed 660076780 Problem Complex regional pain syndrome affecting both upper arms G90.513 Active confirmed 186354976 Problem Slow transit constipation K59.01 Active confirmed 14959726 Problem Allergic rhinitis, unspecified J30.9 Active confir med 63061707 Problem Age-related cataract of both eyes, unspecified age-related cataract type H25.9 Active confirmed 11889744 ALLERGIES No Known Allergies ENCOUNTERS from 1945 to 2021-05-21 Encounter Location Date Provider Diagnosis [facility] [address] [phone] [place] [address] 11 May, 2021 Leeanne Yang Chronic pain syndrom e G89.4 IMMUNIZATIONS No [...] 1 tablet Orally Once a day Active HYDROcodone-Acetaminophen 10-325 MG 1 tablet as needed Orally every 6 hrs for 30 days May, Active Lyrica 50 MG 1 capsule Orally Once a day for 30 Days Active OneTouch SureSoft Lancing Dev - as directed topically Daily for 90 days Oct, Active ARIPiprazole 30 MG 1 tablet Orally Once a day Active Albuterol Sulfate 108 (90 Base) MCG/ACT 1 puff as need ed Inhalation every 4 hrs as needed for 30 Days Dec, Active Losartan Potassium 100 MG TAKE ONE TABLET BY MOUTH PIPO RY DAY Orally Once a day for 30 days Active Lasix 20 MG 2 tablet Orally Once a day for 90 day(s) Active OneTouch Verio w/Device as directed topically Daily for 90 day(s ) Oct, Active ZyrTEC Allergy 10 MG 1 tablet on the tongue and a llow to dissolve Orally Once a day for 90 day(s) Oct, Active Citalopram Hydrobromide 20 MG 1 tablet Orally Once a day Active Januvia 25 MG as directed Orally Daily for 90 days Active PROCEDURES No Information RESULTS No Results REASON FOR VISIT cx appt and med refill MEDICAL (GENERAL) HISTORY Type Description Date [...] Notes Treatment Notes Treatm ent Clinical Notes May, Chronic pain syndrome (ICD-10 - G89.4) PLAN OF TREATMENT Medication Medication Name Sig Start Date Stop Date HYDROcodone-Acetaminophen 10-325 MG 1 tablet as needed Orally every 6 hrs for 30 days May, Losartan Potassium 100 MG TAKE ONE TABLET BY MOUTH PIPO DAY Orally Once a day for 30 days Next Appt Details Provider Name:Leeanne Yang, 2021-06-20 03:30:00 PM, [address] [facility] [place], , [place], [address], Insurance Providers Payer Name Payer Address Payer Phone Insured Name Patient Relati onship to Insured Coverage Start Date Coverage End Date MEDICARE Part A and B [address] [facility] [place] [id number] TICO GUEVARA [facility] [address] [facility] [id number] Ismael Peters
--- OUTSIDE RECORDS SUMMARY | 2021-05-29 10:13 | CCD ---
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 If you continue you may have access to information: Regarding HIV / AIDS; Provided by facilities licensed or operated by the [facility] Office of Mental Health; or Provided by the [facility] Office for People With Developmental Disabilities. If such information is present, then the following [facility] mandated warning applies: This information has [...] law may result in a fine or shelter sentence or both. A general authorization for the release of medical or other information is NOT sufficient authorization for further disc losure. Family History Family Member Name Family Member Gender Family Member Status Date o f Status Description Data Source(s) Unknown Female Problem [facility] ([facility] Encounters Encounter Providers Location Date Indications Data Source(s ) Unknown [address] [facility] [address] 05/16/2021 12:00:00 AM EST eCW1 ([facility]) [place] [address] [facility] [address] 05/08/2021 12:00:00 AM EDT eCW1 ([facility]) Unknown [address] [facility] [address] 04/22/2021 12:00:00 AM EDT eCW1 ([facility]) [place] [address] [facility] [address] 03/25/2021 12:00:00 AM EDT eCW1 ([facility]) [place] [address] [facility] [address] 02/11/2021 12:00:00 AM EDT eCW1 ([facility]) Unknown [address] [facility] [address] 02/01/2021 12:00:00 AM EDT eCW1 ([facility]) Unknown [address] [facility] [address] 01/22/2021 12:00:00 AM EDT eCW1 ([facility]) Outpatient [address] [facility] [address] 01/17/2021 12:00:00 AM EDT eCW1 ([facility]) Outpatient [address] [facility] [address] 01/11/2021 12:00:00 AM EDT eCW1 ([facility]) Unknown [address] [facility] [address] 01/04/2021 12:00:00 AM EDT eCW1 ([facility]) Unknown [address] [facility] [address] 01/02/2021 12:00:00 AM EDT eCW1 ([facility]) Unknown [address] [facility] [address] 12/28/2020 12:00:00 AM EDT eCW1 ([facility]) Unknown [address] [facility] [address] 12/20/2020 12:00:00 AM EDT eCW1 ([facility]) Unknown [address] [facility] [address] 12/10/2020 12:00:00 AM EDT eCW1 ([facility]) Unknown [address] [facility] [address] 11/14/2020 12:00:00 AM EDT eCW1 ([facility]) Unknown [address] [facility] [address] 10/24/2020 12:00:00 AM EDT eCW1 ([facility]) Unknown [address] [facility] [address] 10/22/2020 12:00:00 AM EDT eCW1 ([facility]) Unknown [address] [facility] [address] 10/19/2020 12:00:00 AM EDT eCW1 ([facility]) Unknown [address] [facility] [address] 10/19/2020 12:00:00 AM EDT eCW1 ([facility]) Unknown [address] [facility] [address] 10/16/2020 12:00:00 AM EDT eCW1 ([facility]) Outpatient [address] [facility] [address] 10/11/2020 12:00:00 AM EDT eCW1 ([facility]) Unknown [address] [facility] [address] 10/04/2020 12:00:00 AM EDT eCW1 ([facility]) Unknown [address] [facility] [address] 09/24/2020 12:00:00 AM EDT eCW1 ([facility]) Unknown [address] [facility] [address] 08/30/2020 12:00:00 AM EST eCW1 ([facility]) TeleMedicine Phone E/M by Phys 21-30 Min [address] [place] [address] 08/24/2020 12:00:00 AM EST eCW1 ([facility]) Unknown [address] [facility] [address] 08/07/2020 12:00:00 AM EST eCW1 ([facility]) Unknown [address] [facility] [address] 07/17/2020 12:00:00 AM EST eCW1 ([facility]) Unknown [address] [facility] [address] 07/11/2020 12:00:00 AM EST eCW1 ([facility]) Unknown [address] [facility] [place] [address] 07/09/2020 12:00:00 AM EST eCW1 ([facility]) Unknown [address] [facility] [address] 06/18/2020 12:00:00 AM EST eCW1 ([facility]) Unknown [address] [facility] [address] 06/13/2020 12:00:00 AM EST eCW1 ([facility]) Unknown [address] [facility] [address] 06/04/2020 12:00:00 AM EST eCW1 ([facility]) Outpatient [address] [facility] [address] 05/25/2020 12:00:00 AM EST eCW1 ([facility]) Unknown [address] [facility] [address] 05/15/2020 12:00:00 AM EST eCW1 ([facility]) Unknown [address] [facility] [place] [address] 05/01/2020 12:00:00 AM EDT eCW1 ([facility]) Outpatient Attender: PAMELA TORRES 04/27/2020 12:02:14 A M EDT [facility] Unknown [address] [facility] [address] 04/19/2020 12:00:00 AM EDT eCW1 ([facility]) Unknown [address] [facility] [address] 04/10/2020 12:00:00 AM EDT eCW1 ([facility]) Immunizations Vaccine Date Status Description Data Source(s) COVID-19 VACCINE Moderna 09/10/2020 12:00:00 AM EST completed [facility] Vaccine Series Complete: YESThis Data wa s Submitted to [facility] Via [employer]. COVID-19 VACCINE, MRNA-1273, LNP-S (MODERNA)/PF 09/10/2020 1 2:00:00 AM EST completed [facility] COVID-19 VACCINE Moderna 08/13/2020 12:00:00 AM EST completed [facility] Vaccine Series Complete: NOThis Data was Submitted to [facility] Via [employer]. COVID-19 VACCINE, MRNA-1273, LNP-S (MODERNA)/PF 08/13/2020 1 2:00:00 AM EST completed [facility] Medications Medication Brand Name [...] DOSE = 4 SOLD: 05/18/2021 [facility] Acetaminophen 325 MG / Hydrocodone Niko trate 10 MG Oral Tablet HYDROcodone- Acetaminophen 10-325 MG HYDROcodone-Acetaminophen 10-325 MG 05/17/2021 12:00:0 0 AM EST 1.0 {tablet_as_needed} active HYDROcodone-Acetaminophen 10- 325 MG eCW1 ([facility]) 100 mg 05/09/2021 12:00:00 AM EDT tablet [...] {tablet_as_needed} active HYDROcodone-Acetaminophen 10- 325 MG eCW1 ([facility]) Acetaminophen 325 MG / Hydrocodone Niko trate 10 MG Oral Tablet HYDROcodone- Acetaminophen 10-325 MG HYDROcodone-Acetaminophen 10-325 MG 04/23/2021 12:00:0 0 AM EDT 1.0 {tablet_as_needed} active HYDROcodone-Acetaminophen 10- 325 MG eCW1 ([facility]) Acetaminophen 325 MG / Hydrocodone Bitartrate 10 MG Or al Tablet 10-325 mg HYDROCODONE/ACETAMINOPHEN 03/26/2021 12:00:00 AM EDT tablet 120 TAKE ONE TABLET BY MOUTH EVERY 6 HOURS NEEDED MAXIMUM DAILY DOSE = 4 TABLETS TAKE ONE TABLET BY MOUTH EVERY 6 HOURS NEEDED MAXIMUM DAILY DOSE = 4 TABLETS SOLD: 03/26/2021 [facility] Acetaminophen 325 MG / Hydrocodone Niko trate 10 MG Oral Tablet HYDROcodone- Acetaminophen 10-325 MG HYDROcodone-Acetaminophen 10-325 MG 03/25/2021 12:00:0 0 AM EDT 1.0 {tablet_as_needed} active HYDROcodone-Acetaminophen 10- 325 MG eCW1 ([facility]) Acetaminophen 325 MG / Hydrocodone Bitartrate 10 MG Or al Tablet 10-325 mg HYDROCODONE/ACETAMINOPHEN 02/16/2021 12:00:00 AM EDT tablet 120 TAKE ONE TABLET BY MOUTH EVERY 4 TO 6 HOURS NEEDED MAXIMUM DAILY DOSE = 6 TABLETS TAKE ONE TABLET BY MOUTH EVERY 4 TO 6 HOURS NEEDED MAXIMUM DAILY DOSE = 6 TABLETS SOLD: 02/16/2021 [facility] Acetaminophen 325 MG / Hydrocodone Niko trate 10 MG Oral Tablet HYDROcodone- Acetaminophen 10-325 MG HYDROcodone-Acetaminophen 10-325 MG 02/16/2021 12:00:0 0 AM EDT 1.0 {tablet_as_needed} active HYDROcodone-Acetaminophen 10- 325 MG eCW1 ([facility]) Acetaminophen 325 MG / Hydrocodone Niko trate 10 MG Oral Tablet HYDROcodone- Acetaminophen 10-325 MG HYDROcodone-Acetaminophen 10-325 MG 02/16/2021 12:00:0 0 AM EDT 1.0 {tablet_as_needed} active HYDROcodone-Acetaminophen 10- 325 MG eCW1 ([facility]) 2 mg 01/21/2021 12:00:00 AM EDT tablet 90 TAKE ONE TABLET BY MOUTH EVERY MORNING TAKE ONE TABLET BY MOUTH EVERY MORNING SOLD: 01/21/2021 [facility] Citalopram 20 MG Oral Tablet CITALOPRAM HYDROBROMIDE [...] DOSE = SIX TABLETS SOLD: 01/18/2021 [facility] Acetaminophen 325 MG / Hydrocodone Niko trate 10 MG Oral Tablet HYDROcodone- Acetaminophen 10-325 MG HYDROcodone-Acetaminophen 10-325 MG 01/17/2021 12:00:0 0 AM EDT 1.0 {tablet_as_needed} active HYDROcodone-Acetaminophen 10- 325 MG eCW1 ([facility]) Acetaminophen 325 MG / Hydrocodone Niko trate 10 MG Oral Tablet HYDROcodone- Acetaminophen 10-325 MG HYDROcodone-Acetaminophen 10-325 MG 01/17/2021 12:00:0 0 AM EDT 1.0 {tablet_as_needed} active HYDROcodone-Acetaminophen 10- 325 MG eCW1 ([facility]) Acetaminophen 325 MG / Hydrocodone Niko trate 10 MG Oral Tablet HYDROcodone- Acetaminophen 10-325 MG HYDROcodone-Acetaminophen 10-325 MG 01/17/2021 12:00:0 0 AM EDT 1.0 {tablet_as_needed} active HYDROcodone-Acetaminophen 10- 325 MG eCW1 ([facility]) Acetaminophen 325 MG / Hydrocodone Niko trate 10 MG Oral Tablet HYDROcodone- Acetaminophen 10-325 MG HYDROcodone-Acetaminophen 10-325 MG 01/17/2021 12:00:0 0 AM EDT 1.0 {tablet_as_needed} active HYDROcodone-Acetaminophen 10- 325 MG eCW1 ([facility]) Acetaminophen 325 MG / Hydrocodone Bitartrate 10 [...] {tablet_as_needed} active HYDROcodone-Acetaminophen 10- 325 MG eCW1 ([facility]) Acetaminophen 325 MG / Hydrocodone Niko trate 10 MG Oral Tablet HYDROcodone- Acetaminophen 10-325 MG HYDROcodone-Acetaminophen 10-325 MG 01/04/2021 12:00:0 0 AM EDT 1.0 {tablet_as_needed} active HYDROcodone-Acetaminophen 10- 325 MG eCW1 ([facility]) 90 mcg/actuation 01/01/2021 12:00:00 AM EDT aerosol powdr breath activated 1 INHALE ONE PUFF BY MOUTH EVERY 4 HOURS NEEDED INHAL E ONE PUFF BY MOUTH EVERY 4 HOURS NEEDED SOLD: 01/07/2021 [facility] 25 mg 12/29/2020 12:00:00 AM EDT tablet 90 TAKE DIRECTED DAILY TAKE DIRECTED DAILY SOLD: 04/09/2021 [facility] 25 mg 12/29/2020 12:00:00 AM EDT tablet 90 TAKE DIRECTED DAILY TAKE DIRECTED DAILY SOLD: 12/31/2020 [facility] Albuterol Sulfate 108 (90 Base) MCG/ACT UNK 12/28/2020 12: 00:00 AM EDT 1.0 {puff_as_needed} active Albuterol Sulfa te 108 (90 Base) MCG/ACT eCW1 ([facility]) Albuterol Sulfate 108 (90 Base) MCG/ACT UNK 12/28/2020 12: 00:00 AM EDT 1.0 {puff_as_needed} active Albuterol Sulfa te 108 (90 Base) MCG/ACT eCW1 ([facility]) Albuterol Sulfate 108 (90 Base) MCG/ACT UNK 12/28/2020 12: 00:00 AM EDT 1.0 {puff_as_needed} active Albuterol Sulfa te 108 (90 Base) MCG/ACT eCW1 ([facility]) Albuterol Sulfate 108 (90 Base) MCG/ACT UNK 12/28/2020 12: 00:00 AM EDT 1.0 {puff_as_needed} active Albuterol Sulfa te 108 (90 Base) MCG/ACT eCW1 ([facility]) Albuterol Sulfate 108 (90 Base) MCG/ACT UNK 12/28/2020 12: 00:00 AM EDT 1.0 {puff_as_needed} active Albuterol Sulfa te 108 (90 Base) MCG/ACT eCW1 ([facility]) Albuterol Sulfate 108 (90 Base) MCG/ACT UNK 12/28/2020 12: 00:00 AM EDT 1.0 {puff_as_needed} active Albuterol Sulfa te 108 (90 Base) MCG/ACT eCW1 ([facility]) Albuterol Sulfate 108 (90 Base) MCG/ACT UNK 12/28/2020 12: 00:00 AM EDT 1.0 {puff_as_needed} active Albuterol Sulfa te 108 (90 Base) MCG/ACT eCW1 ([facility]) Albuterol Sulfate 108 (90 Base) MCG/ACT UNK 12/28/2020 12: 00:00 AM EDT 1.0 {puff_as_needed} active Albuterol Sulfa te 108 (90 Base) MCG/ACT eCW1 ([facility]) Albuterol Sulfate 108 (90 Base) MCG/ACT UNK 12/28/2020 12: 00:00 AM EDT 1.0 {puff_as_needed} active Albuterol Sulfa te 108 (90 Base) MCG/ACT eCW1 ([facility]) Albuterol Sulfate 108 (90 Base) MCG/ACT UNK 12/28/2020 12: 00:00 AM EDT 1.0 {puff_as_needed} active Albuterol Sulfa te 108 (90 Base) MCG/ACT eCW1 ([facility]) Albuterol Sulfate 108 (90 Base) MCG/ACT UNK 12/28/2020 12: 00:00 AM EDT 1.0 {puff_as_needed} active Albuterol Sulfa te 108 (90 Base) MCG/ACT eCW1 ([facility]) Albuterol Sulfate 108 (90 Base) MCG/ACT UNK 12/28/2020 12: 00:00 AM EDT 1.0 {puff_as_needed} active Albuterol Sulfa te 108 (90 Base) MCG/ACT eCW1 ([facility]) Albuterol Sulfate 108 (90 Base) MCG/ACT UNK 12/28/2020 12: 00:00 AM EDT 1.0 {puff_as_needed} active Albuterol Sulfa te 108 (90 Base) MCG/ACT eCW1 ([facility]) Acetaminophen 325 MG / Hydrocodone Bitartrate 10 [...] {tablet_as_needed} active HYDROcodone-Acetaminophen 10- 325 MG eCW1 ([facility]) Acetaminophen 325 MG / Hydrocodone Bitartrate 10 MG Or al Tablet 10-325 mg HYDROCODONE/ACETAMINOPHEN 11/16/2020 12:00:00 AM EDT tablet 180 TAKE ONE TABLET BY MOUTH EVERY 4-6 HOURS NEEDED MAXIMUM DAILY DOSE = 4 TAKE ONE TABLET BY MOUTH EVERY 4-6 HOURS NEEDED MAXIMUM DAILY DOSE = 4 SOLD: 11/17/2020 [facility] Acetaminophen 325 MG / Hydrocodone Niko trate 10 MG Oral Tablet Hydrocodone- Acetaminophen 10-325 MG Hydrocodone-Acetaminophen 10-325 MG 11/16/2020 12:00:0 0 AM EDT 1.0 {tablet_as_needed} active Hydrocodone-Acetaminophen 10- 325 MG eCW1 ([facility]) Acetaminophen 325 MG / Hydrocodone Niko trate 10 MG Oral Tablet HYDROcodone- Acetaminophen 10-325 MG HYDROcodone-Acetaminophen 10-325 MG 11/16/2020 12:00:0 0 AM EDT 1.0 {tablet_as_needed} active HYDROcodone-Acetaminophen 10- 325 MG eCW1 ([facility]) 100 mg 11/05/2020 12:00:00 AM EDT tablet [...] {tablet_as_needed} active Hydrocodone-Acetaminophen 10- 325 MG eCW1 ([facility]) Acetaminophen 325 MG / Hydrocodone Niko trate 10 MG Oral Tablet Hydrocodone- Acetaminophen 10-325 MG Hydrocodone-Acetaminophen 10-325 MG 10/22/2020 12:00:0 0 AM EDT 1.0 {tablet_as_needed} active Hydrocodone-Acetaminophen 10- 325 MG eCW1 ([facility]) Acetaminophen 325 MG / Hydrocodone Bitartrate 10 MG Or al Tablet 10-325 mg HYDROCODONE/ACETAMINOPHEN 10/22/2020 12:00:00 AM EDT tablet 180 TAKE ONE TABLET BY MOUTH EVERY 4 TO 6 HOURS NEEDED MAXIMUM DAILY DOSE = 4 TABLETS TAKE ONE TABLET BY MOUTH EVERY 4 TO 6 HOURS NEEDED MAXIMUM DAILY DOSE = 4 TABLETS SOLD: 10/23/2020 [facility] Acetaminophen 325 MG / Hydrocodone Niko trate 10 MG Oral Tablet Hydrocodone- Acetaminophen 10-325 MG Hydrocodone-Acetaminophen 10-325 MG 10/22/2020 12:00:0 0 AM EDT 1.0 {tablet_as_needed} active Hydrocodone-Acetaminophen 10- 325 MG eCW1 ([facility]) Acetaminophen 325 MG / Hydrocodone Niko trate 10 MG Oral Tablet Hydrocodone- Acetaminophen 10-325 MG Hydrocodone-Acetaminophen 10-325 MG 10/22/2020 12:00:0 0 AM EDT 1.0 {tablet_as_needed} active Hydrocodone-Acetaminophen 10- 325 MG eCW1 ([facility]) BLOOD-GLUCOSE METER 10/17/2020 12:00:00 AM EDT misc 1 USE DIRECTED USE DIRECTED SOLD: 10/18/2020 [facility] 33 gauge 10/17/2020 12:00:00 AM EDT misc 100 USE DIRECTED USE DIRECTED SOLD: 10/18/2020 [facility] OneTouch Verio w/Device OneTouch Verio w/Device 10/16/2020 12:00:00 A M EDT active OneTouch Verio w/Dev ice eCW1 ([facility]) OneTouch Verio w/Device OneTouch Verio w/Device 10/16/2020 12:00:00 A M EDT active OneTouch Verio w/Dev ice eCW1 ([facility]) OneTouch Verio w/Device OneTouch Verio w/Device 10/16/2020 12:00:00 A M EDT active OneTouch Verio w/Dev ice eCW1 ([facility]) OneTouch SureSoft Lancing Dev - OneTouch [employer] Lancing De v - 10/16/2020 12:00:00 AM EDT active [employer] - eCW1 ([facility]) OneTouch Verio w/Device OneTouch Verio w/Device 10/16/2020 12:00:00 A M EDT active OneTouch Verio w/Dev ice eCW1 ([facility]) OneTouch Verio w/Device OneTouch Verio w/Device 10/16/2020 12:00:00 A M EDT active OneTouch Verio w/Dev ice eCW1 ([facility]) OneTouch [employer] - OneTouch [employer] Lancing De v - 10/16/2020 12:00:00 AM EDT active [employer] - eCW1 ([facility]) [employer]Touch [employer] - OneTouch [employer] Lancing De v - 10/16/2020 12:00:00 AM EDT active [employer] - eCW1 ([facility]) OneTouch Verio w/Device OneTouch Verio w/Device 10/16/2020 12:00:00 A M EDT active OneTouch Verio w/Dev ice eCW1 ([facility]) OneTouch [employer] - OneTouch [employer] Lancing De v - 10/16/2020 12:00:00 AM EDT active [employer] - eCW1 ([facility]) OneTouch Verio w/Device OneTouch Verio w/Device 10/16/2020 12:00:00 A M EDT active OneTouch Verio w/Dev ice eCW1 ([facility]) OneTouch [employer] - OneTouch [employer] Lancing De v - 10/16/2020 12:00:00 AM EDT active [employer] - eCW1 ([facility]) OneTouch [employer] - OneTouch [employer] Lancing De v - 10/16/2020 12:00:00 AM EDT active [employer] - eCW1 ([facility]) OneTouch Verio w/Device OneTouch Verio w/Device 10/16/2020 12:00:00 A M EDT active OneTouch Verio w/Dev ice eCW1 ([facility]) OneTouch Verio w/Device OneTouch Verio w/Device 10/16/2020 12:00:00 A M EDT active OneTouch Verio w/Dev ice eCW1 ([facility]) OneTouch [employer] - OneTouch [employer] Lancing De v - 10/16/2020 12:00:00 AM EDT active OneTouch [employer] - eCW1 ([facility]) OneTouch [employer] - OneTouch [employer] Lancing De v - 10/16/2020 12:00:00 AM EDT active OneTouch [employer] - eCW1 ([facility]) OneTouch [employer] - OneTouch [employer] Lancing De v - 10/16/2020 12:00:00 AM EDT active OneTouch [employer] - eCW1 ([facility]) OneTouch [employer] - OneTouch [employer] Lancing De v - 10/16/2020 12:00:00 AM EDT active OneTouch [employer] - eCW1 ([facility]) OneTouch Verio w/Device OneTouch Verio w/Device 10/16/2020 12:00:00 A M EDT active OneTouch Verio w/Dev ice eCW1 ([facility]) OneTouch [employer] - OneTouch [employer] Lancing De v - 10/16/2020 12:00:00 AM EDT active OneTouch [employer] - eCW1 ([facility]) OneTouch [employer] - OneTouch [employer] Lancing De v - 10/16/2020 12:00:00 AM EDT active OneTouch [employer] - eCW1 ([facility]) OneTouch Verio w/Device OneTouch Verio w/Device 10/16/2020 12:00:00 A M EDT active OneTouch Verio w/Dev ice eCW1 ([facility]) OneTouch Verio w/Device OneTouch Verio w/Device 10/16/2020 12:00:00 A M EDT active OneTouch Verio w/Dev ice eCW1 ([facility]) OneTouch Verio w/Device OneTouch Verio w/Device 10/16/2020 12:00:00 A M EDT active OneTouch Verio w/Dev ice eCW1 ([facility]) OneTouch [employer] - OneTouch Sure[employer] Lancing De v - 10/16/2020 12:00:00 AM EDT active OneTouch [employer] - eCW1 ([facility]) OneTouch Verio w/Device OneTouch Verio w/Device 10/16/2020 12:00:00 A M EDT active OneTouch Verio w/Dev ice eCW1 ([facility]) OneTouch [employer] - OneTouch Sure[employer] Lancing De v - 10/16/2020 12:00:00 AM EDT active OneTouch [employer] - eCW1 ([facility]) OneTouch [employer] - OneTouch Sure[employer] Lancing De v - 10/16/2020 12:00:00 AM EDT active OneTouch [employer] - eCW1 ([facility]) OneTouch [employer] - OneTouch SureSoft Lancing De v - 10/16/2020 12:00:00 AM EDT active OneTouch [employer] - eCW1 ([facility]) OneTouch Verio w/Device OneTouch Verio w/Device 10/16/2020 12:00:00 A M EDT active OneTouch Verio w/Dev ice eCW1 ([facility]) OneTouch [employer] - OneTouch [employer] Lancing De v - 10/16/2020 12:00:00 AM EDT active OneTouch [employer] - eCW1 ([facility]) OneTouch Verio w/Device OneTouch Verio w/Device 10/16/2020 12:00:00 A M EDT active OneTouch Verio w/Dev ice eCW1 ([facility]) OneTouch Verio w/Device OneTouch Verio w/Device 10/16/2020 12:00:00 A M EDT active OneTouch Verio w/Dev ice eCW1 ([facility]) OneTouch Verio w/Device OneTouch Verio w/Device 10/16/2020 12:00:00 A M EDT active OneTouch Verio w/Dev ice eCW1 ([facility]) OneTouch [employer] - OneTouch Sure[employer] Lancing De v - 10/16/2020 12:00:00 AM EDT active OneTouch [employer] - eCW1 ([facility]) OneTouch [employer] - OneTouch [employer] Lancing De v - 10/16/2020 12:00:00 AM EDT active OneTouch [employer] - eCW1 ([facility]) OneTouch Verio w/Device OneTouch Verio w/Device 10/16/2020 12:00:00 A M EDT active OneTouch Verio w/Dev ice eCW1 ([facility]) OneTouch Verio w/Device OneTouch Verio w/Device 10/16/2020 12:00:00 A M EDT active OneTouch Verio w/Dev ice eCW1 ([facility]) OneTouch [employer] - OneTouch Sure[employer] Lancing De v - 10/16/2020 12:00:00 AM EDT active OneTouch [employer] - eCW1 ([facility]) OneTouch [employer] - OneTouch [employer] Lancing De v - 10/16/2020 12:00:00 AM EDT active OneTouch [employer] - eCW1 ([facility]) OneTouch Verio w/Device OneTouch Verio w/Device 10/16/2020 12:00:00 A M EDT active OneTouch Verio w/Dev ice eCW1 ([facility]) cetirizine hydrochloride 10 MG Disintegr ating Oral Tablet [Zyrtec] ZyrTEC Allergy 10 MG ZyrTEC Allergy 10 MG 10/11/2020 12:00:00 AM EDT 1.0 {tablet_on_the_tongue_and_allow_to_dissolve} activ e ZyrTEC Allergy 10 MG eCW1 ([facility]) cetirizine hydrochloride 10 MG Disintegr ating Oral Tablet [Zyrtec] ZyrTEC Allergy 10 MG ZyrTEC Allergy 10 MG 10/11/2020 12:00:00 AM EDT 1.0 {tablet_on_the_tongue_and_allow_to_dissolve} activ e ZyrTEC Allergy 10 MG eCW1 ([facility]) cetirizine hydrochloride 10 MG Disintegr ating Oral Tablet [Zyrtec] ZyrTEC Allergy 10 MG ZyrTEC Allergy 10 MG 10/11/2020 12:00:00 AM EDT 1.0 {tablet_on_the_tongue_and_allow_to_dissolve} activ e ZyrTEC Allergy 10 MG eCW1 ([facility]) cetirizine hydrochloride 10 MG Disintegr ating Oral Tablet [Zyrtec] ZyrTEC Allergy 10 MG ZyrTEC Allergy 10 MG 10/11/2020 12:00:00 AM EDT 1.0 {tablet_on_the_tongue_and_allow_to_dissolve} activ e ZyrTEC Allergy 10 MG eCW1 ([facility]) 50 mg 10/11/2020 12:00:00 AM EDT capsule [...] activ e Zyrtec Allergy 10 MG eCW1 ([facility]) cetirizine hydrochloride 10 MG Disintegr ating Oral Tablet [Zyrtec] ZyrTEC Allergy 10 MG ZyrTEC Allergy 10 MG 10/11/2020 12:00:00 AM EDT 1.0 {tablet_on_the_tongue_and_allow_to_dissolve} activ e ZyrTEC Allergy 10 MG eCW1 ([facility]) cetirizine hydrochloride 10 MG Disintegr ating Oral Tablet [Zyrtec] ZyrTEC Allergy 10 MG ZyrTEC Allergy 10 MG 10/11/2020 12:00:00 AM EDT 1.0 {tablet_on_the_tongue_and_allow_to_dissolve} activ e ZyrTEC Allergy 10 MG eCW1 ([facility]) cetirizine hydrochloride 10 MG Disintegr ating Oral Tablet [Zyrtec] ZyrTEC Allergy 10 MG ZyrTEC Allergy 10 MG 10/11/2020 12:00:00 AM EDT 1.0 {tablet_on_the_tongue_and_allow_to_dissolve} activ e ZyrTEC Allergy 10 MG eCW1 ([facility]) cetirizine hydrochloride 10 MG Disintegr ating Oral Tablet [Zyrtec] ZyrTEC Allergy 10 MG ZyrTEC Allergy 10 MG 10/11/2020 12:00:00 AM EDT 1.0 {tablet_on_the_tongue_and_allow_to_dissolve} activ e ZyrTEC Allergy 10 MG eCW1 ([facility]) cetirizine hydrochloride 10 MG Disintegr ating Oral Tablet [Zyrtec] Zyrtec Allergy 10 MG Zyrtec Allergy 10 MG 10/11/2020 12:00:00 AM EDT 1.0 {tablet_on_the_tongue_and_allow_to_dissolve} activ e Zyrtec Allergy 10 MG eCW1 ([facility]) cetirizine hydrochloride 10 MG Disintegr ating Oral Tablet [Zyrtec] Zyrtec Allergy 10 MG Zyrtec Allergy 10 MG 10/11/2020 12:00:00 AM EDT 1.0 {tablet_on_the_tongue_and_allow_to_dissolve} activ e Zyrtec Allergy 10 MG eCW1 ([facility]) cetirizine hydrochloride 10 MG Disintegr ating Oral Tablet [Zyrtec] ZyrTEC Allergy 10 MG ZyrTEC Allergy 10 MG 10/11/2020 12:00:00 AM EDT 1.0 {tablet_on_the_tongue_and_allow_to_dissolve} activ e ZyrTEC Allergy 10 MG eCW1 ([facility]) cetirizine hydrochloride 10 MG Disintegr ating Oral Tablet [Zyrtec] ZyrTEC Allergy 10 MG ZyrTEC Allergy 10 MG 10/11/2020 12:00:00 AM EDT 1.0 {tablet_on_the_tongue_and_allow_to_dissolve} activ e ZyrTEC Allergy 10 MG eCW1 ([facility]) cetirizine hydrochloride 10 MG Disintegr ating Oral Tablet [Zyrtec] Zyrtec Allergy 10 MG Zyrtec Allergy 10 MG 10/11/2020 12:00:00 AM EDT 1.0 {tablet_on_the_tongue_and_allow_to_dissolve} activ e Zyrtec Allergy 10 MG eCW1 ([facility]) cetirizine hydrochloride 10 MG Disintegr ating Oral Tablet [Zyrtec] ZyrTEC Allergy 10 MG ZyrTEC Allergy 10 MG 10/11/2020 12:00:00 AM EDT 1.0 {tablet_on_the_tongue_and_allow_to_dissolve} activ e ZyrTEC Allergy 10 MG eCW1 ([facility]) cetirizine hydrochloride 10 MG Disintegr ating Oral Tablet [Zyrtec] ZyrTEC Allergy 10 MG ZyrTEC Allergy 10 MG 10/11/2020 12:00:00 AM EDT 1.0 {tablet_on_the_tongue_and_allow_to_dissolve} activ e ZyrTEC Allergy 10 MG eCW1 ([facility]) cetirizine hydrochloride 10 MG Disintegr ating Oral Tablet [Zyrtec] Zyrtec Allergy 10 MG Zyrtec Allergy 10 MG 10/11/2020 12:00:00 AM EDT 1.0 {tablet_on_the_tongue_and_allow_to_dissolve} activ e Zyrtec Allergy 10 MG eCW1 ([facility]) cetirizine hydrochloride 10 MG Disintegr ating Oral Tablet [Zyrtec] ZyrTEC Allergy 10 MG ZyrTEC Allergy 10 MG 10/11/2020 12:00:00 AM EDT 1.0 {tablet_on_the_tongue_and_allow_to_dissolve} activ e ZyrTEC Allergy 10 MG eCW1 ([facility]) cetirizine hydrochloride 10 MG Disintegr ating Oral Tablet [Zyrtec] Zyrtec Allergy 10 MG Zyrtec Allergy 10 MG 10/11/2020 12:00:00 AM EDT 1.0 {tablet_on_the_tongue_and_allow_to_dissolve} activ e Zyrtec Allergy 10 MG eCW1 ([facility]) cetirizine hydrochloride 10 MG Disintegr ating Oral Tablet [Zyrtec] ZyrTEC Allergy 10 MG ZyrTEC Allergy 10 MG 10/11/2020 12:00:00 AM EDT 1.0 {tablet_on_the_tongue_and_allow_to_dissolve} activ e ZyrTEC Allergy 10 MG eCW1 ([facility]) cetirizine hydrochloride 10 MG Disintegr ating Oral Tablet [Zyrtec] Zyrtec Allergy 10 MG Zyrtec Allergy 10 MG 10/11/2020 12:00:00 AM EDT 1.0 {tablet_on_the_tongue_and_allow_to_dissolve} activ e Zyrtec Allergy 10 MG eCW1 ([facility]) 100 mg 10/08/2020 12:00:00 AM EDT tablet [...] {tablet_as_needed} active Hydrocodone-Acetaminophen 10- 325 MG eCW1 ([facility]) Acetaminophen 325 MG / Hydrocodone Niko trate 10 MG Oral Tablet Hydrocodone- Acetaminophen 10-325 MG Hydrocodone-Acetaminophen 10-325 MG 09/25/2020 12:00:0 0 AM EDT 1.0 {tablet_as_needed} active Hydrocodone-Acetaminophen 10- 325 MG eCW1 ([facility]) Acetaminophen 325 MG / Hydrocodone Niko trate 10 MG Oral Tablet Hydrocodone- Acetaminophen 10-325 MG Hydrocodone-Acetaminophen 10-325 MG 09/25/2020 12:00:0 0 AM EDT 1.0 {tablet_as_needed} active Hydrocodone-Acetaminophen 10- 325 MG eCW1 ([facility]) 10-325 mg 09/25/2020 12:00:00 AM EDT tablet [...] {tablet_as_needed} active Hydrocodone-Acetaminophen 10- 325 MG eCW1 ([facility]) 100 mg 09/05/2020 12:00:00 AM EST tablet 30 TAKE ONE TABLET BY MOUTH EVERY DAY TAKE ONE TABLET BY MOUTH EVERY DAY SOLD: 09/12/2020 [facility] Acetaminophen 325 MG / Hydrocodone Niko trate 10 MG Oral Tablet Hydrocodone- Acetaminophen 10-325 MG Hydrocodone-Acetaminophen 10-325 MG 08/31/2020 12:00:0 0 AM EST 1.0 {tablet_as_needed} active Hydrocodone-Acetaminophen 10- 325 MG eCW1 ([facility]) 25 mg 08/31/2020 12:00:00 AM EST tablet 30 TAKE ONE TABLET BY MOUTH EVERY DAY DIRECTED TAKE ONE TABLET BY MOUTH EVERY DAY DIRECTED SOLD: [facility] Acetaminophen 325 MG / Hydrocodone Niko trate 10 MG Oral Tablet Hydrocodone- Acetaminophen 10-325 MG Hydrocodone-Acetaminophen 10-325 MG 08/31/2020 12:00:0 0 AM EST 1.0 {tablet_as_needed} active Hydrocodone-Acetaminophen 10- 325 MG eCW1 ([facility]) 10-325 mg 08/31/2020 12:00:00 AM EST tablet [...] {capsule} active L yrica 25 MG eCW1 ([facility]) pregabalin 25 MG Oral Capsule [Lyrica] Lyrica 25 MG Lyrica 2 5 MG 08/24/2020 12:00:00 AM EST 1.0 {capsule} active L yrica 25 MG eCW1 ([facility]) pregabalin 25 MG Oral Capsule [Lyrica] Lyrica 25 MG Lyrica 2 5 MG 08/24/2020 12:00:00 AM EST 1.0 {capsule} active L yrica 25 MG eCW1 ([facility]) 25 mg 08/24/2020 12:00:00 AM EST capsule 30 TAKE ONE CAPSULE BY MOUTH EVERY DAY MAXIMUM DAILY DOSE = 1 CAPSULE TAKE ONE CAPSULE BY MOUTH EVERY DAY MAXI MUM DAILY DOSE = 1 CAPSULE SOLD: 08/24/2020 [facility] pregabalin 25 MG Oral Capsule [Lyrica] Lyrica 25 MG Lyrica 2 5 MG 08/24/2020 12:00:00 AM EST 1.0 {capsule} active L yrica 25 MG eCW1 ([facility]) 2 % 08/17/2020 12:00:00 AM EST cream 60 APPLY TOPICALY ONCE DAILY APPLY TOPICALY ONCE DAILY SOLD: 11/22/2020 [facility] 2 % 08/17/2020 12:00:00 AM EST cream 60 APPLY TOPICALY ONCE DAILY APPLY TOPICALY ONCE DAILY SOLD: 08/17/2020 [facility] 2 % 08/17/2020 12:00:00 AM [...] {tablet_as_needed} active Hydrocodone-Acetaminophen 10- 325 MG eCW1 ([facility]) 10-325 mg 08/07/2020 12:00:00 AM EST tablet [...] BY MOUTH EVERY MORNING SOLD: 08/02/2020 [facility] Citalopram 20 MG Oral Tablet CITALOPRAM HYDROBROMIDE [...] {tablet_as_needed} active HydrOXYzine HCl 25 MG eCW1 ([facility]) Hydroxyzine Hydrochloride 25 MG Oral Tablet HydrOXYzin e HCl 25 MG HydrOXYzine HCl 25 MG 07/16/2020 12:00:00 AM EST 1.0 {tablet_as_needed} active HydrOXYzine HCl 25 MG eCW1 ([facility]) Hydroxyzine Hydrochloride 25 MG Oral Tablet HydrOXYzin e HCl 25 MG HydrOXYzine HCl 25 MG 07/16/2020 12:00:00 AM EST 1.0 {tablet_as_needed} active HydrOXYzine HCl 25 MG eCW1 ([facility]) Acetaminophen 325 MG / Hydrocodone Niko trate 10 MG Oral Tablet Hydrocodone- Acetaminophen 10-325 MG Hydrocodone-Acetaminophen 10-325 MG 07/10/2020 12:00:0 0 AM EST 1.0 {tablet_as_needed} active Hydrocodone-Acetaminophen 10- 325 MG eCW1 ([facility]) Acetaminophen 325 MG / Hydrocodone Niko trate 10 MG Oral Tablet Hydrocodone- Acetaminophen 10-325 MG Hydrocodone-Acetaminophen 10-325 MG 07/10/2020 12:00:0 0 AM EST 1.0 {tablet_as_needed} active Hydrocodone-Acetaminophen 10- 325 MG eCW1 ([facility]) 25 mg 07/10/2020 12:00:00 AM EST tablet 30 TAKE ONE TABLET BY MOUTH EVERY DAY DIRECTED TAKE ONE TABLET BY MOUTH EVERY DAY DIRECTED SOLD: 021 [facility] Acetaminophen 325 MG / Hydrocodone Niko trate 10 MG Oral Tablet Hydrocodone- Acetaminophen 10-325 MG Hydrocodone-Acetaminophen 10-325 MG 07/10/2020 12:00:0 0 AM EST 1.0 {tablet_as_needed} active Hydrocodone-Acetaminophen 10- 325 MG eCW1 ([facility]) 100 mg 07/05/2020 12:00:00 AM EST tablet 30 TAKE ONE TABLET BY MOUTH EVERY DAY TAKE ONE TABLET BY MOUTH EVERY DAY SOLD: 07/05/2020 [facility] 60 mg 06/27/2020 12:00:00 AM EST [...] {tablet_as_needed} active Hydrocodone-Acetaminophen 10- 325 MG eCW1 ([facility]) Acetaminophen 325 MG / Hydrocodone Niko trate 10 MG Oral Tablet Hydrocodone- Acetaminophen 10-325 MG Hydrocodone-Acetaminophen 10-325 MG 06/14/2020 12:00:0 0 AM EST 1.0 {tablet_as_needed} active Hydrocodone-Acetaminophen 10- 325 MG eCW1 ([facility]) Acetaminophen 325 MG / Hydrocodone Niko trate 10 MG Oral Tablet Hydrocodone- Acetaminophen 10-325 MG Hydrocodone-Acetaminophen 10-325 MG 06/14/2020 12:00:0 0 AM EST 1.0 {tablet_as_needed} active Hydrocodone-Acetaminophen 10- 325 MG eCW1 ([facility]) 25 mg 06/05/2020 12:00:00 AM EST tablet 30 TAKE ONE TABLET BY MOUTH EVERY DAY DIRECTED TAKE ONE TABLET BY MOUTH EVERY DAY DIRECTED SOLD: 020 [facility] gabapentin 300 MG Oral Capsule Gabapentin 300 MG Gabapentin 300 MG 06/04/2020 12:00:00 AM EST 1.0 {capsule} active G abapentin 300 MG eCW1 ([facility]) gabapentin 300 MG Oral Capsule Gabapentin 300 MG Gabapentin 300 MG 06/04/2020 12:00:00 AM EST 1.0 {capsule} active G abapentin 300 MG eCW1 ([facility]) gabapentin 300 MG Oral Capsule Gabapentin 300 MG Gabapentin 300 MG 06/04/2020 12:00:00 AM EST 1.0 {capsule} active G abapentin 300 MG eCW1 ([facility]) gabapentin 300 MG Oral Capsule Gabapentin 300 MG Gabapentin 300 MG 06/04/2020 12:00:00 AM EST 1.0 {capsule} active G abapentin 300 MG eCW1 ([facility]) gabapentin 300 MG Oral Capsule Gabapentin 300 MG Gabapentin 300 MG 06/04/2020 12:00:00 AM EST 1.0 {capsule} active G abapentin 300 MG eCW1 ([facility]) gabapentin 300 MG Oral Capsule Gabapentin 300 MG Gabapentin 300 MG 06/04/2020 12:00:00 AM EST 1.0 {capsule} active G abapentin 300 MG eCW1 ([facility]) gabapentin 300 MG Oral Capsule Gabapentin 300 MG Gabapentin 300 MG 06/04/2020 12:00:00 AM EST 1.0 {capsule} active G abapentin 300 MG eCW1 ([facility]) gabapentin 300 MG Oral Capsule Gabapentin 300 MG Gabapentin 300 MG 06/04/2020 12:00:00 AM EST 1.0 {capsule} active G abapentin 300 MG eCW1 ([facility]) 100 mg 06/01/2020 12:00:00 AM EST tablet 30 TAKE ONE TABLET BY MOUTH EVERY DAY TAKE ONE TABLET BY MOUTH EVERY DAY SOLD: 06/03/2020 [facility] Nystatin 100 UNT/MG Topical Powder [...] Drugs Nystatin 100 UNT/MG Topical Powder Nystatin 924258 UNI T/GM Nystatin 658342 UNIT/GM 05/25/2020 12:00:00 AM EST 1.0 {application} active Nystatin 912152 UNIT/GM eCW1 ([facility]) Nystatin 100 UNT/MG Topical Powder Nystatin 127444 UNI T/GM Nystatin 933398 UNIT/GM 05/25/2020 12:00:00 AM EST 1.0 {application} active Nystatin 447086 UNIT/GM eCW1 ([facility]) Nystatin 100 UNT/MG Topical Powder Nystatin 979082 UNI T/GM Nystatin 787152 UNIT/GM 05/25/2020 12:00:00 AM EST 1.0 {application} active Nystatin 916427 UNIT/GM eCW1 ([facility]) Nystatin 100 UNT/MG Topical Powder Nystatin 446296 UNI T/GM Nystatin 987675 UNIT/GM 05/25/2020 12:00:00 AM EST 1.0 {application} active Nystatin 374736 UNIT/GM eCW1 ([facility]) Nystatin 100 UNT/MG Topical Powder Nystatin 225624 UNI T/GM Nystatin 411585 UNIT/GM 05/25/2020 12:00:00 AM EST 1.0 {application} active Nystatin 932884 UNIT/GM eCW1 ([facility]) Nystatin 100 UNT/MG Topical Powder Nystatin 975673 UNI T/GM Nystatin 927730 UNIT/GM 05/25/2020 12:00:00 AM EST 1.0 {application} active Nystatin 839238 UNIT/GM eCW1 ([facility]) Nystatin 100 UNT/MG Topical Powder Nystatin 411470 UNI T/GM Nystatin 898878 UNIT/GM 05/25/2020 12:00:00 AM EST 1.0 {application} active Nystatin 095301 UNIT/GM eCW1 ([facility]) Nystatin 100 UNT/MG Topical Powder Nystatin 096458 UNI T/GM Nystatin 038194 UNIT/GM 05/25/2020 12:00:00 AM EST 1.0 {application} active Nystatin 604630 UNIT/GM eCW1 ([facility]) 10-325 mg 05/19/2020 12:00:00 AM EST tablet [...] {tablet_as_needed} active Hydrocodone-Acetaminophen 10- 325 MG eCW1 ([facility]) Acetaminophen 325 MG / Hydrocodone Niko trate 10 MG Oral Tablet Hydrocodone- Acetaminophen 10-325 MG Hydrocodone-Acetaminophen 10-325 MG 05/16/2020 12:00:0 0 AM EST 1.0 {tablet_as_needed} active Hydrocodone-Acetaminophen 10- 325 MG eCW1 ([facility]) 20 mg 05/09/2020 12:00:00 AM EST tablet [...] {capsule} acti ve Cymbalta 60 MG eCW1 ([facility]) duloxetine 60 MG Delayed Release Oral Capsule [Cymbalt a] Cymbalta 60 MG Cymbalta 60 MG 04/13/2020 12:00:00 AM EDT 1.0 {capsule} acti ve Cymbalta 60 MG eCW1 ([facility]) duloxetine 60 MG Delayed Release Oral Capsule [Cymbalt a] Cymbalta 60 MG Cymbalta 60 MG 04/13/2020 12:00:00 AM EDT 1.0 {capsule} acti ve Cymbalta 60 MG eCW1 ([facility]) duloxetine 60 MG Delayed Release Oral Capsule [Cymbalt a] Cymbalta 60 MG Cymbalta 60 MG 04/13/2020 12:00:00 AM EDT 1.0 {capsule} acti ve Cymbalta 60 MG eCW1 ([facility]) 60 mg 03/30/2020 12:00:00 AM EDT capsule,delayed release (DR/EC) 60 TAKE TWO CAPSULES BY MOUTH EVERY DAY TAKE TWO CAPSULES BY MOUTH EVERY DAY SOLD: 04/01/2020 [facility] 100,000 unit/gram 03/30/2020 12:00:00 AM EDT powder 30 APPLY TO AFFECTED AREA(S) ONCE A DAY APPLY TO AFFECTED AREA(S) ONCE A DAY SOLD: 04/01/2020 [facility] 90 mcg/actuation 03/20/2020 12:00:00 AM EDT HFA aerosol inha ler 8 INHALE TWO PUFFS BY MOUTH EVERY 4 TO 6 HOURS INHALE TWO PUFFS BY MOUTH EVERY 4 TO 6 HOURS SOLD: 04/07/2020 [facility] 2 % 03/19/2020 12:00:00 AM [...] AREA(S) ONCE DAILY SOLD: 07/01/2020 [facility] 40 mg 08/15/2019 12:00:00 AM EST tablet 90 TAKE ONE TABLET BY MOUTH EVERY DAY TAKE ONE TABLET BY MOUTH EVERY DAY SOLD: 05/10/2020 [facility] Insurance Providers Payer name Policy type / Coverage type Policy ID Covered libertarian ID Covered libertarian's relationship to roca Policy [place] Plan Information MEDICARE [id number] [place] [id number] Self [id number] [place] [id number] Self [id number] [place] [id number] Self Medicare [place] Primary [id number] Self [id number] [place] Primary [id number] Self [id number] [place] Primary [id number] Self [id number] [place] Primary [id number] Self [id number] [place] Primary [id number] Self [id number] [place] Primary [id number] Self [id number] [place] Primary [id number] Self [id number] [place] Primary [id number] Self [id number] [place] Medicare Primary [id number] Self [id number] [place] Primary [id number] Self [id number] [place] Primary [id number] Self [id number] Medicare P [id number] S [id number] J41 Emp/[employer] Medigap Part B [id number] Family Dependent [id number] Emp/[employer] Medigap Part B [id number] Family Dependent [id number] Emp/[employer] Medigap Part B [id number] Family Dependent [id number] Emp/[employer] Medigap Part B [id number] Family Dependent [id number] Emp/[employer] Medigap Part B [id number] Family Dependent [id number] Emp/[employer] Medigap Part B [id number] Family Dependent [id number] Emp/[employer] Medigap Part B [id number] Family Dependent [id number] Emp/[employer] Medigap Part B [id number] Family Dependent [id number] Emp/[employer] Medigap Part B [id number] Family Dependent [id number] Emp/[employer] Medigap Part B [id number] Family Depend ent BCBS EMPIRE NELA DIV [id number] [id number] [employer] [id number] HU2 [id number] [employer] [id number] HU2 [id number] [employer] S [id number] S [id number] MEDICARE P [id number] S [id number] B MEDICARE [id number] SP [id number] B [id number] BCBS EMPIRE NELA DIV [id number] WI2 [id number] [facility] [id number] WI2 [id number] MEDICARE [id number] SP [id number] MEDICARE [id number] SP [id number] [facility] [id number] WI2 [id number] BCBS EMPIRE NELA DIV [id number] WI2 [id number] BCBS EMPIRE NELA DIV [id number] [id number] BCBS EMPIRE NELA DIV [id number] SP [id number] [place] Plan S [id number] S [id number] BCBS EMPIRE NELA DIV 4 SP 4 Medicare P [id number] S [id number] Emp/[employer] Medigap Part B [id number] Family Dependent [id number] Emp/[employer] Medigap Part B [id number] Family Dependent [id number] Emp/[employer] Medigap Part B [id number] Family Dependent [id number] Emp/[employer] Medigap Part B [id number] Family Dependent [id number] Problems, Conditions, and Diagnoses Code Display Name Description Problem Type Effective Dates Data Source(s) R13.10 [id number] Dysphagia, unspecified type Problem 01/24/20 12:00:00 AM EDT eCW1 ([facility]) J30.1 [id number] Seasonal allergic rhinitis due to pollen Problem 10/11/2020 12:00:00 AM EDT eCW1 ([facility]) H25.9 [id number] Age-related cataract of both eyes, unspecified age-related cataract type Problem 04/25/2020 12:00:00 AM EDT eCW1 ([facility]) Surgeries/Procedures No Information Results No Information Social History Code Duration Value Status Description Data Source(s ) Smoking 01/17/2021 12:00:00 AM EDT Former Smoker completed Former Smoker eCW1 ([facility]) Smoking 01/17/2021 12:00:00 AM EDT Former Smoker completed Former Smoker eCW1 ([facility]) Smoking 01/17/2021 12:00:00 AM EDT Former Smoker completed Former Smoker eCW1 ([facility]) Smoking 01/17/2021 12:00:00 AM EDT Former Smoker completed Former Smoker eCW1 ([facility]) Smoking 01/17/2021 12:00:00 AM EDT Former Smoker completed Former Smoker eCW1 ([facility]) Smoking 01/17/2021 12:00:00 AM EDT Former Smoker completed Former Smoker eCW1 ([facility]) Smoking 01/17/2021 12:00:00 AM EDT Former Smoker completed Former Smoker eCW1 ([facility]) Smoking 01/17/2021 12:00:00 AM EDT Former Smoker completed Former Smoker eCW1 ([facility]) Smoking 01/17/2021 12:00:00 AM EDT Former Smoker completed Former Smoker eCW1 ([facility]) Smoking 01/17/2021 12:00:00 AM EDT Former Smoker completed Former Smoker eCW1 ([facility]) Smoking 01/10/2021 12:00:00 AM EDT Former Smoker completed Former Smoker eCW1 ([facility]) Smoking 12/14/2020 12:00:00 AM EDT Former Smoker completed Former Smoker eCW1 ([facility]) Smoking 12/14/2020 12:00:00 AM EDT Former Smoker completed Former Smoker eCW1 ([facility]) Smoking 12/14/2020 12:00:00 AM EDT Former Smoker completed Former Smoker eCW1 ([facility]) Smoking 10/11/2020 12:00:00 AM EDT Former Smoker completed Former Smoker eCW1 ([facility]) Smoking 10/11/2020 12:00:00 AM EDT Former Smoker completed Former Smoker eCW1 ([facility]) Smoking 10/11/2020 12:00:00 AM EDT Former Smoker completed Former Smoker eCW1 ([facility]) Smoking 10/11/2020 12:00:00 AM EDT Former Smoker completed Former Smoker eCW1 ([facility]) Smoking 10/11/2020 12:00:00 AM EDT Former Smoker completed Former Smoker eCW1 ([facility]) Smoking 10/11/2020 12:00:00 AM EDT Former Smoker completed Former Smoker eCW1 ([facility]) Smoking 10/11/2020 12:00:00 AM EDT Former Smoker completed Former Smoker eCW1 ([facility]) Smoking 08/24/2020 12:00:00 AM EST Former Smoker completed Former Smoker eCW1 ([facility]) Smoking 08/24/2020 12:00:00 AM EST Former Smoker completed Former Smoker eCW1 ([facility]) Smoking 08/24/2020 12:00:00 AM EST Former Smoker completed Former Smoker eCW1 ([facility]) Smoking 08/24/2020 12:00:00 AM EST Former Smoker completed Former Smoker eCW1 ([facility]) Smoking 05/25/2020 12:00:00 AM EST Former Smoker completed Former Smoker eCW1 ([facility]) Smoking 05/25/2020 12:00:00 AM EST Former Smoker completed Former Smoker eCW1 ([facility]) Smoking 05/25/2020 12:00:00 AM EST Former Smoker completed Former Smoker eCW1 ([facility]) Smoking 05/25/2020 12:00:00 AM EST Former Smoker completed Former Smoker eCW1 ([facility]) Smoking 05/25/2020 12:00:00 AM EST Former Smoker completed Former Smoker eCW1 ([facility]) Smoking 05/25/2020 12:00:00 AM EST Former Smoker completed Former Smoker eCW1 ([facility]) Smoking 05/25/2020 12:00:00 AM EST Former Smoker completed Former Smoker eCW1 ([facility]) Smoking 05/25/2020 12:00:00 AM EST Former Smoker completed Former Smoker eCW1 ([facility]) Smoking 04/19/2020 12:00:00 AM EDT Former Smoker completed Former Smoker eCW1 ([facility]) Smoking 04/19/2020 12:00:00 AM EDT Former Smoker completed Former Smoker eCW1 ([facility]) Smoking 04/19/2020 12:00:00 AM EDT Former Smoker completed Former Smoker eCW1 ([facility]) Vital Signs ID Date Data Source UNK Name Value Range Interpretation Code Description Data Source(s) Body weight 198 [lb_av] 198 [lb_av] eCW1 ([facility]) Body height 62 [in_i] 62 [in_i] eCW1 ([facility]) Body mass index (BMI) [Ratio] 36.21 kg/m2 36.21 kg/m2 W1 ([facility]) Heart rate 84 /min 84 /min eCW1 ([facility]) Respiratory rate 19 /min 19 /min eCW1 ([facility]) Body temperature 97.5 [degF] 97.5 [degF] eCW1 ( [facility]) Systolic blood pressure 122 mm[Hg] 122 mm[Hg] e CW1 ([facility]) Diastolic blood pressure 80 mm[Hg] 80 mm[Hg] eCW1 ([facility]) Body weight 199.2 [lb_av] 199.2 [lb_av] eCW1 ([facility] Body height 62 [in_i] 62 [in_i] eCW1 ([facility]) Body mass index (BMI) [Ratio] 36.43 kg/m2 36.43 kg/m2 eCW1 ([facility]) Heart rate 81 /min 81 /min eCW1 ([facility]) Respiratory rate 19 /min 19 /min eCW1 ([facility]) Body temperature 97.4 [degF] 97.4 [degF] eCW1 ( [facility]) Systolic blood pressure 120 mm[Hg] 120 mm[Hg] e CW1 ([facility]) Diastolic blood pressure 80 mm[Hg] 80 mm[Hg] eCW1 ([facility]) Heart rate 82 /min 82 /min eCW1 ([facility]) Body weight 218.6 [lb_av] 218.6 [lb_av] eCW1 ([facility]) Body height 62 [in_i] 62 [in_i] eCW1 ([facility]) Body mass index (BMI) [Ratio] 39.98 kg/m2 39.98 kg/m2 eCW1 ([facility]) Respiratory rate 19 /min 19 /min eCW1 ([facility]) Body temperature 98.3 [degF] 98.3 [degF] eCW1 ( [facility]) Systolic blood pressure 128 mm[Hg] 128 mm[Hg] e CW1 ([facility]) Diastolic blood pressure 76 mm[Hg] 76 mm[Hg] eCW1 ([facility]) Body weight 217.8 [lb_av] 217.8 [lb_av] eCW1 ([facility] Body height 62 [in_i] 62 [in_i] eCW1 ([facility]) Body mass index (BMI) [Ratio] 39.83 kg/m2 39.83 kg/m2 eCW1 ([facility]) Heart rate 117 /min 117 /min eCW1 ([facility]) Respiratory rate 18 /min 18 /min eCW1 ([facility]) Body temperature 98.8 [degF] 98.8 [degF] eCW1 ( [facility]) Systolic blood pressure 110 mm[Hg] 110 mm[Hg] e CW1 ([facility]) Diastolic blood pressure 66 mm[Hg] 66 mm[Hg] eCW1 ([facility]) Patient Treatment Plan of Care Planned Activity Planned Date Details Description Data Source (s) Acetaminophen 325 MG / Hydrocodone Bitartrate 10 MG Or al Tablet 05/17/2021 12:00:00 AM EST eCW1 ([facility]) Acetaminophen 325 MG / Hydrocodone Bitartrate 10 MG Or al Tablet 04/23/2021 12:00:00 AM EDT eCW1 ([facility]) Acetaminophen 325 MG / Hydrocodone Bitartrate 10 MG Or al Tablet 04/23/2021 12:00:00 AM EDT eCW1 ([facility]) Acetaminophen 325 MG / Hydrocodone Bitartrate 10 MG Or al Tablet 03/25/2021 12:00:00 AM EDT eCW1 ([facility]) Acetaminophen 325 MG / Hydrocodone Bitartrate 10 MG Or al Tablet 02/16/2021 12:00:00 AM EDT eCW1 ([facility]) Acetaminophen 325 MG / Hydrocodone Bitartrate 10 MG Or al Tablet 02/16/2021 12:00:00 AM EDT eCW1 ([facility]) Acetaminophen 325 MG / Hydrocodone Bitartrate 10 MG Or al Tablet 01/17/2021 12:00:00 AM EDT eCW1 ([facility]) Acetaminophen 325 MG / Hydrocodone Bitartrate 10 MG Or al Tablet 01/17/2021 12:00:00 AM EDT eCW1 ([facility]) Acetaminophen 325 MG / Hydrocodone Bitartrate 10 MG Or al Tablet 01/17/2021 12:00:00 AM EDT eCW1 ([facility]) Acetaminophen 325 MG / Hydrocodone Bitartrate 10 MG Or al Tablet 01/17/2021 12:00:00 AM EDT eCW1 ([facility]) Acetaminophen 325 MG / Hydrocodone Bitartrate 10 MG Or al Tablet 01/04/2021 12:00:00 AM EDT eCW1 ([facility]) Acetaminophen 325 MG / Hydrocodone Bitartrate 10 MG Or al Tablet 01/04/2021 12:00:00 AM EDT eCW1 ([facility]) Albuterol Sulfate 108 (90 Base) MCG/ACT 12/28/2020 12:00:00 AM EDT eCW1 ([facility]) Albuterol Sulfate 108 (90 Base) MCG/ACT 12/28/2020 12:00:00 AM EDT eCW1 ([facility]) Albuterol Sulfate 108 (90 Base) MCG/ACT 12/28/2020 12:00:00 AM EDT eCW1 ([facility]) Acetaminophen 325 MG / Hydrocodone Bitartrate 10 MG Or al Tablet 11/16/2020 12:00:00 AM EDT eCW1 ([facility]) Acetaminophen 325 MG / Hydrocodone Bitartrate 10 MG Or al Tablet 10/22/2020 12:00:00 AM EDT eCW1 ([facility]) Acetaminophen 325 MG / Hydrocodone Bitartrate 10 MG Or al Tablet 10/22/2020 12:00:00 AM EDT eCW1 ([facility]) Acetaminophen 325 MG / Hydrocodone Bitartrate 10 MG Or al Tablet 10/22/2020 12:00:00 AM EDT eCW1 ([facility]) Acetaminophen 325 MG / Hydrocodone Bitartrate 10 MG Or al Tablet 10/22/2020 12:00:00 AM EDT eCW1 ([facility] hospital) OneTouch Verio w/Device 10/16/2020 12:00:00 AM EDT eCW1 ([facility]) OneTouch Verio w/Device 10/16/2020 12:00:00 AM EDT eCW1 ([facility]) OneTouch [employer] Lancing Dev - 10/16/2020 12:00:00 AM EDT eCW1 ([facility]) OneTouch Verio w/Device 10/16/2020 12:00:00 AM EDT eCW1 ([facility]) OneTouch [employer]ancing [employer] - 10/16/2020 12:00:00 AM EDT eCW1 ([facility]) OneTouch Verio w/Device 10/16/2020 12:00:00 AM EDT eCW1 ([facility]) OneTouch [employer]ancing [employer] - 10/16/2020 12:00:00 AM EDT eCW1 ([facility]) OneTouch Verio w/Device 10/16/2020 12:00:00 AM EDT eCW1 ([facility]) OneTouch [employer]ancing [employer] - 10/16/2020 12:00:00 AM EDT eCW1 ([facility]) OneTouch [employer] - 10/16/2020 12:00:00 AM EDT eCW1 ([facility]) OneTouch Verio w/Device 10/16/2020 12:00:00 AM EDT eCW1 ([facility]) OneTouch [employer] - 10/16/2020 12:00:00 AM EDT eCW1 ([facility]) OneTouch Verio w/Device 10/16/2020 12:00:00 AM EDT eCW1 ([facility]) OneTouch [employer] - 10/16/2020 12:00:00 AM EDT eCW1 ([facility]) cetirizine hydrochloride 10 MG Disintegrating Oral Tab let [Zyrtec] 10/11/2020 12:00:00 AM EDT eCW1 ([facility]) cetirizine hydrochloride 10 MG Disintegrating Oral Tab let [Zyrtec] 10/11/2020 12:00:00 AM EDT eCW1 ([facility]) cetirizine hydrochloride 10 MG Disintegrating Oral Tab let [Zyrtec] 10/11/2020 12:00:00 AM EDT eCW1 ([facility]) cetirizine hydrochloride 10 MG Disintegrating Oral Tab let [Zyrtec] 10/11/2020 12:00:00 AM EDT eCW1 ([facility]) cetirizine hydrochloride 10 MG Disintegrating Oral Tab let [Zyrtec] 10/11/2020 12:00:00 AM EDT eCW1 ([facility]) cetirizine hydrochloride 10 MG Disintegrating Oral Tab let [Zyrtec] 10/11/2020 12:00:00 AM EDT eCW1 ([facility]) cetirizine hydrochloride 10 MG Disintegrating Oral Tab let [Zyrtec] 10/11/2020 12:00:00 AM EDT eCW1 ([facility]) Acetaminophen 325 MG / Hydrocodone Bitartrate 10 MG Or al Tablet 09/25/2020 12:00:00 AM EDT eCW1 ([facility]) Acetaminophen 325 MG / Hydrocodone Bitartrate 10 MG Or al Tablet 09/25/2020 12:00:00 AM EDT eCW1 ([facility]) Acetaminophen 325 MG / Hydrocodone Bitartrate 10 MG Or al Tablet 09/25/2020 12:00:00 AM EDT eCW1 ([facility]) Acetaminophen 325 MG / Hydrocodone Bitartrate 10 MG Or al Tablet 08/31/2020 12:00:00 AM EST eCW1 ([facility]) Acetaminophen 325 MG / Hydrocodone Bitartrate 10 MG Or al Tablet 08/31/2020 12:00:00 AM EST eCW1 ([facility]) pregabalin 25 MG Oral Capsule [Lyrica] 08/24/2020 12:00:00 AM EST eCW1 ([facility]) pregabalin 25 MG Oral Capsule [Lyrica] 08/24/2020 12:00:00 AM EST eCW1 ([facility]) pregabalin 25 MG Oral Capsule [Lyrica] 08/24/2020 12:00:00 AM EST eCW1 ([facility]) pregabalin 25 MG Oral Capsule [Lyrica] 08/24/2020 12:00:00 AM EST eCW1 ([facility]) Acetaminophen 325 MG / Hydrocodone Bitartrate 10 MG Or al Tablet 08/07/2020 12:00:00 AM EST eCW1 ([facility]) Hydroxyzine Hydrochloride 25 MG Oral Tablet 07/16/2020 12:00:00 AM EST eCW1 ([facility]) Hydroxyzine Hydrochloride 25 MG Oral Tablet 07/16/2020 12:00:00 AM EST eCW1 ([facility]) Hydroxyzine Hydrochloride 25 MG Oral Tablet 07/16/2020 12:00:00 AM EST eCW1 ([facility]) Acetaminophen 325 MG / Hydrocodone Bitartrate 10 MG Or al Tablet 07/10/2020 12:00:00 AM EST eCW1 ([facility]) Acetaminophen 325 MG / Hydrocodone Bitartrate 10 MG Or al Tablet 07/10/2020 12:00:00 AM EST eCW1 ([facility]) Acetaminophen 325 MG / Hydrocodone Bitartrate 10 MG Or al Tablet 07/10/2020 12:00:00 AM EST eCW1 ([facility]) Acetaminophen 325 MG / Hydrocodone Bitartrate 10 MG Or al Tablet 06/14/2020 12:00:00 AM EST eCW1 ([facility]) Acetaminophen 325 MG / Hydrocodone Bitartrate 10 MG Or al Tablet 06/14/2020 12:00:00 AM EST eCW1 ([facility]) Acetaminophen 325 MG / Hydrocodone Bitartrate 10 MG Or al Tablet 06/14/2020 12:00:00 AM EST eCW1 ([facility]) gabapentin 300 MG Oral Capsule 06/04/2020 12:00:00 AM EST eCW1 ([facility]) gabapentin 300 MG Oral Capsule 06/04/2020 12:00:00 AM EST eCW1 ([facility]) gabapentin 300 MG Oral Capsule 06/04/2020 12:00:00 AM EST eCW1 ([facility]) gabapentin 300 MG Oral Capsule 06/04/2020 12:00:00 AM EST eCW1 ([facility]) gabapentin 300 MG Oral Capsule 06/04/2020 12:00:00 AM EST eCW1 ([facility]) gabapentin 300 MG Oral Capsule 06/04/2020 12:00:00 AM EST eCW1 ([facility]) gabapentin 300 MG Oral Capsule 06/04/2020 12:00:00 AM EST eCW1 ([facility]) gabapentin 300 MG Oral Capsule 06/04/2020 12:00:00 AM EST eCW1 ([facility]) Nystatin 100 UNT/MG Topical Powder 05/25/2020 12:00:00 AM EST eCW1 ([facility]) Nystatin 100 UNT/MG Topical Powder 05/25/2020 12:00:00 AM EST eCW1 ([facility]) Nystatin 100 UNT/MG Topical Powder 05/25/2020 12:00:00 AM EST eCW1 ([facility]) Nystatin 100 UNT/MG Topical Powder 05/25/2020 12:00:00 AM EST eCW1 ([facility]) Nystatin 100 UNT/MG Topical Powder 05/25/2020 12:00:00 AM EST eCW1 ([facility]) Nystatin 100 UNT/MG Topical Powder 05/25/2020 12:00:00 AM EST eCW1 ([facility]) Nystatin 100 UNT/MG Topical Powder 05/25/2020 12:00:00 AM EST eCW1 ([facility]) Nystatin 100 UNT/MG Topical Powder 05/25/2020 12:00:00 AM EST eCW1 ([facility]) Acetaminophen 325 MG / Hydrocodone Bitartrate 10 MG Or al Tablet 05/16/2020 12:00:00 AM EST eCW1 ([facility]) duloxetine 60 MG Delayed Release Oral Capsule [Cymbalt a] 04/13/2020 12:00:00 AM EDT eCW1 ([facility]) duloxetine 60 MG Delayed Release Oral Capsule [Cymbalt a] 04/13/2020 12:00:00 AM EDT eCW1 ([facility]) duloxetine 60 MG Delayed Release Oral Capsule [Cymbalt a] 04/13/2020 12:00:00 AM EDT eCW1 (Critical [facility] hospital)
[2021-05-29 10:23] LABS: HEMATOCRIT 41.9 % (36.0-47.0); HEMOGLOBIN 14.3 g/dl (12.0-15.5); MEAN CORPUSCULAR HEMOGLOBIN 29.7 pg (27.0-33.0); MEAN CORPUSCULAR HGB CONC 34.1 g/dl (32.0-36.5); MEAN CORPUSCULAR VOLUME 87.1 fl (80.0-96.0); PLATELET COUNT, AUTOMATED 213 10^3/uL (150-450); RED BLOOD COUNT 4.81 10^6/uL (4.00-5.40); WHITE BLOOD COUNT 6.8 10^3/uL (4.0-10.0)
--- NOTE | 2021-05-29 10:40 | REP ---
INDICATION: confusion COMPARISON: 09/04/2006 TECHNIQUE: Portable AP view of the chest FINDINGS: Examination is limited by portable technique, underpenetration and positioning. There is evidence to suggest left lower lobe atelectasis/infiltrate. Further evaluation is limited. No pneumothorax or definite effusion. IMPRESSION: Findings suggesting left basilar infiltrate/atelectasis. <Electronically signed by Stanislav Naranjo > 05/29/21 [id number]
[2021-05-29 10:58] LABS: ACETAMINOPHEN LEVEL 2.7 UG/ML (10.0-30.0); ALBUMIN 3.6 GM/DL (3.2-5.2); ALT/SGPT 18 U/L (12-78); BILIRUBIN,DIRECT < 0.1 MG/DL (0.0-0.2); BILIRUBIN,TOTAL 0.6 MG/DL (0.2-1.0); BLOOD UREA NITROGEN 6 MG/DL (7-18); CARBON DIOXIDE LEVEL 34 MEQ/L (21-32); CHLORIDE LEVEL 96 MEQ/L (98-107); CREATININE FOR GFR 0.37 MG/DL (0.55-1.30); ETHYL ALCOHOL (ETHANOL) 0.004 % (0.000-0.010); GLOMERULAR FILTRATION RATE > 60.0 (>39); GLUCOSE, FASTING 120 MG/DL (70-100); POTASSIUM SERUM 3.8 MEQ/L (3.5-5.1); SALICYLATE LEVEL < 1.7 MG/DL (5.0-30.0); SODIUM LEVEL 137 MEQ/L (136-145); THYROID STIMULATING HORMONE 0.923 uIU/ML (0.358-3.740); TOTAL PROTEIN 7.4 GM/DL (6.4-8.2)
[2021-05-29 12:18] LABS: AMPHETAMINES LEVEL URINE NEGATIVE (NEGATIVE); BARBITURATES URINE NEGATIVE (NEGATIVE); BENZODIAZEPINES URINE NEGATIVE (NEGATIVE); CANNABINOIDS URINE NEGATIVE (NEGATIVE); COCAINE METABOLITE URINE NEGATIVE (NEGATIVE); METHADONE URINE NEGATIVE (NEGATIVE); OPIATES URINE POSITIVE (NEGATIVE); PHENCYCLIDINE URINE NEGATIVE (NEGATIVE)
[2021-05-29] MEDS ORDERED: ALBU8.5H INH (13:08)
[2021-05-29] MEDS ORDERED: KETO2CR TOP (13:08)
[2021-05-29] MEDS ORDERED: HOME MED LIST COMPLETE! XX SCH (15:15)
[2021-05-29 16:27] LABS: RSV AMPLIFICATION NEGATIVE (NEGATIVE)
[2021-05-29 16:28] VITALS: BP 127/74
--- NOTE | 2021-05-29 17:01 | ECGEPIP ---
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
--- NOTE | 2021-05-30 09:37 | ED PDOC ---
Post-Departure Follow-Up radiology report faxed to [facility] Chiara Ingram MD May 30, 2021 09:37
== END 2021-05-29 16:32 | disposition home or self-care (01) ==
LOC: EDBD 09:01 → M ED 09:01
DX: F43.20 Adjustment disorder, unspecified (principal); E11.9 Type 2 diabetes mellitus without complications; I10 Essential (primary) hypertension; F32.9 Major depressive disorder, single episode, unspecified; F03.90 Unspecified dementia, unspecified severity, without behavioral disturbance, psychotic disturbance, mood disturbance, and anxiety; M79.7 Fibromyalgia; R12 Heartburn; Z79.899 Other long term (current) drug therapy

== ENCOUNTER → 2022-05-22 | Outpatient (REF) | payer MEDICARE, BC, OTHER, MEDICAID ==
[~2022-05-22] MED LIST changes: +ALBU8.5H INH; +KETO2CR TOP; +LOSA100T45 PO; -LOSA100T50 PO
[2022-05-22 09:38] LABS: HEMATOCRIT 41.1 % (36.0-47.0); HEMOGLOBIN 13.3 g/dl (12.0-15.5); MEAN CORPUSCULAR HEMOGLOBIN 30.3 pg (27.0-33.0); MEAN CORPUSCULAR HGB CONC 32.4 g/dl (32.0-36.5); MEAN CORPUSCULAR VOLUME 93.6 fl (80.0-96.0); PLATELET COUNT, AUTOMATED 274 10^3/uL (150-450); RED BLOOD COUNT 4.39 10^6/uL (4.00-5.40); WHITE BLOOD COUNT 8.4 10^3/uL (4.0-10.0)
[2022-05-22 10:49] LABS: ALBUMIN 4.1 G/DL (3.2-5.2); ALT/SGPT 11 U/L (7.0-40); BILIRUBIN,TOTAL 0.4 MG/DL (0.3-1.2); BLOOD UREA NITROGEN 12 MG/DL (9-23); CALCIUM LEVEL 9.9 MG/DL (8.3-10.6); CARBON DIOXIDE LEVEL 26 MMOL/L (20-31); CHLORIDE LEVEL 95 MMOL/L (98-107); CREATININE FOR GFR 0.32 MG/DL (0.55-1.30); GLOMERULAR FILTRATION RATE > 60.0 (>39); GLUCOSE, FASTING 119 MG/DL (74-106); POTASSIUM SERUM 4.4 MMOL/L (3.5-5.1); SODIUM LEVEL 133 MMOL/L (136-145); TOTAL PROTEIN 7.4 G/DL (5.7-8.2)
== END ==
LOC: SKLAB3 08:25
PROVIDERS: ATTEND Nurse Practitioner
DX: I10 Essential (primary) hypertension (principal); E11.9 Type 2 diabetes mellitus without complications

== ENCOUNTER → 2022-06-24 | Outpatient (REF) | payer MEDICARE, BC, OTHER, MEDICAID ==
[2022-06-24 08:56] LABS: BLOOD UREA NITROGEN 11 MG/DL (9-23); CALCIUM LEVEL 9.3 MG/DL (8.3-10.6); CARBON DIOXIDE LEVEL 30 MMOL/L (20-31); CHLORIDE LEVEL 90 MMOL/L (98-107); CREATININE FOR GFR 0.41 MG/DL (0.55-1.30); GLOMERULAR FILTRATION RATE > 60.0 (>39); GLUCOSE, FASTING 153 MG/DL (74-106); POTASSIUM SERUM 4.1 MMOL/L (3.5-5.1); SODIUM LEVEL 131 MMOL/L (136-145)
== END ==
LOC: SKLAB3 09:14
PROVIDERS: ATTEND Nurse Practitioner Family
DX: I50.9 Heart failure, unspecified (principal)

== ENCOUNTER → 2022-07-29 | Outpatient (REF) | payer MEDICARE, BC, OTHER, MEDICAID ==
[2022-07-29 08:28] LABS: BLOOD UREA NITROGEN 9 MG/DL (9-23); CALCIUM LEVEL 8.4 MG/DL (8.3-10.6); CARBON DIOXIDE LEVEL 32 MMOL/L (20-31); CHLORIDE LEVEL 92 MMOL/L (98-107); CREATININE FOR GFR 0.36 MG/DL (0.55-1.30); GLOMERULAR FILTRATION RATE > 60.0 (>39); GLUCOSE, FASTING 174 MG/DL (74-106); POTASSIUM SERUM 3.8 MMOL/L (3.5-5.1); SODIUM LEVEL 130 MMOL/L (136-145)
== END ==
LOC: SKLAB3 06:53
PROVIDERS: ATTEND Internal Medicine
DX: I50.9 Heart failure, unspecified (principal)

== ENCOUNTER → 2022-08-01 | Outpatient (REF) | payer MEDICARE, BC, OTHER, MEDICAID ==
[2022-08-01 09:06] LABS: BLOOD UREA NITROGEN 9 MG/DL (9-23); CARBON DIOXIDE LEVEL 31 MMOL/L (20-31); CHLORIDE LEVEL 93 MMOL/L (98-107); CREATININE FOR GFR 0.41 MG/DL (0.55-1.30); GLOMERULAR FILTRATION RATE > 60.0 (>39); GLUCOSE, FASTING 148 MG/DL (74-106); SODIUM LEVEL 132 MMOL/L (136-145)
== END ==
LOC: SKLAB3 07:00
PROVIDERS: ATTEND Nurse Practitioner
DX: I50.9 Heart failure, unspecified (principal); E87.1 Hypo-osmolality and hyponatremia

== ENCOUNTER → 2022-08-21 | Outpatient (REF) | payer MEDICARE, BC, OTHER, MEDICAID ==
[2022-08-21 10:20] LABS: HEMATOCRIT 33.3 % (36.0-47.0); HEMOGLOBIN 11.3 g/dl (12.0-15.5); MEAN CORPUSCULAR HEMOGLOBIN 30.6 pg (27.0-33.0); MEAN CORPUSCULAR HGB CONC 33.9 g/dl (32.0-36.5); MEAN CORPUSCULAR VOLUME 90.2 fl (80.0-96.0); PLATELET COUNT, AUTOMATED 288 10^3/uL (150-450); RED BLOOD COUNT 3.69 10^6/uL (4.00-5.40); WHITE BLOOD COUNT 11.4 10^3/uL (4.0-10.0)
== END ==
LOC: SKLAB3 09:49
PROVIDERS: ATTEND Nurse Practitioner
DX: K62.5 Hemorrhage of anus and rectum (principal)

== ENCOUNTER → 2022-08-25 | Outpatient (REF) | payer MEDICARE, BC, OTHER, MEDICAID ==
[2022-08-25 07:05] LABS: HEMATOCRIT 31.9 % (36.0-47.0); HEMOGLOBIN 10.5 g/dl (12.0-15.5); MEAN CORPUSCULAR HEMOGLOBIN 30.3 pg (27.0-33.0); MEAN CORPUSCULAR HGB CONC 32.9 g/dl (32.0-36.5); MEAN CORPUSCULAR VOLUME 92.2 fl (80.0-96.0); PLATELET COUNT, AUTOMATED 290 10^3/uL (150-450); RED BLOOD COUNT 3.46 10^6/uL (4.00-5.40)
[2022-08-25 07:48] LABS: BLOOD UREA NITROGEN < 5 MG/DL (9-23); CALCIUM LEVEL 9.1 MG/DL (8.3-10.6); CARBON DIOXIDE LEVEL 33 MMOL/L (20-31); CHLORIDE LEVEL 92 MMOL/L (98-107); CREATININE FOR GFR 0.34 MG/DL (0.55-1.30); GLOMERULAR FILTRATION RATE > 60.0 (>39); GLUCOSE, FASTING 141 MG/DL (74-106); POTASSIUM SERUM 3.9 MMOL/L (3.5-5.1); SODIUM LEVEL 130 MMOL/L (136-145)
== END ==
LOC: SKLAB3 09:11
PROVIDERS: ATTEND Nurse Practitioner
DX: D64.9 Anemia, unspecified (principal)

== ENCOUNTER → 2022-08-27 | Outpatient (REF) | payer MEDICARE, BC, OTHER, MEDICAID ==
[2022-08-27 09:35] LABS: HEMATOCRIT 30.8 % (36.0-47.0); HEMOGLOBIN 10.1 g/dl (12.0-15.5); MEAN CORPUSCULAR HEMOGLOBIN 30.2 pg (27.0-33.0); MEAN CORPUSCULAR HGB CONC 32.8 g/dl (32.0-36.5); MEAN CORPUSCULAR VOLUME 92.2 fl (80.0-96.0); PLATELET COUNT, AUTOMATED 288 10^3/uL (150-450); RED BLOOD COUNT 3.34 10^6/uL (4.00-5.40); WHITE BLOOD COUNT 11.7 10^3/uL (4.0-10.0)
== END ==
LOC: SKLAB3 08:40
PROVIDERS: ATTEND Nurse Practitioner
DX: K62.5 Hemorrhage of anus and rectum (principal)

== ENCOUNTER → 2022-09-02 | Outpatient (REF) | payer MEDICARE, BC, OTHER, MEDICAID ==
[2022-09-02 09:35] LABS: HEMATOCRIT 32.3 % (36.0-47.0); HEMOGLOBIN 10.4 g/dl (12.0-15.5); MEAN CORPUSCULAR HEMOGLOBIN 30.1 pg (27.0-33.0); MEAN CORPUSCULAR HGB CONC 32.2 g/dl (32.0-36.5); MEAN CORPUSCULAR VOLUME 93.4 fl (80.0-96.0); PLATELET COUNT, AUTOMATED 324 10^3/uL (150-450); RED BLOOD COUNT 3.46 10^6/uL (4.00-5.40); WHITE BLOOD COUNT 11.8 10^3/uL (4.0-10.0)
== END ==
LOC: SKLAB3 09:18
PROVIDERS: ATTEND Internal Medicine
DX: K62.5 Hemorrhage of anus and rectum (principal)

== ENCOUNTER → 2022-09-09 | Outpatient (REF) | payer MEDICARE, BC, OTHER, MEDICAID ==
[2022-09-09 06:55] LABS: HEMATOCRIT 31.4 % (36.0-47.0); HEMOGLOBIN 10.2 g/dl (12.0-15.5); MEAN CORPUSCULAR HEMOGLOBIN 30.1 pg (27.0-33.0); MEAN CORPUSCULAR HGB CONC 32.5 g/dl (32.0-36.5); MEAN CORPUSCULAR VOLUME 92.6 fl (80.0-96.0); PLATELET COUNT, AUTOMATED 302 10^3/uL (150-450); RED BLOOD COUNT 3.39 10^6/uL (4.00-5.40); WHITE BLOOD COUNT 8.7 10^3/uL (4.0-10.0)
== END ==
LOC: SKLAB3 07:00
PROVIDERS: ATTEND Nurse Practitioner
DX: D64.9 Anemia, unspecified (principal)

== ENCOUNTER → 2022-09-15 | Outpatient (REF) | payer MEDICARE, BC, OTHER, MEDICAID | LOC: SKLAB3 07:15 | PROVIDERS: ATTEND Nurse Practitioner | DX: M85.811 Other specified disorders of bone density and structure, right shoulder (principal); M19.90 Unspecified osteoarthritis, unspecified site; M25.511 Pain in right shoulder ==

== ENCOUNTER → 2022-09-16 | Outpatient (REF) | payer MEDICARE, BC, OTHER, MEDICAID ==
[2022-09-16 07:16] LABS: HEMATOCRIT 34.1 % (36.0-47.0); MEAN CORPUSCULAR HEMOGLOBIN 30.1 pg (27.0-33.0); MEAN CORPUSCULAR HGB CONC 32.3 g/dl (32.0-36.5); MEAN CORPUSCULAR VOLUME 93.4 fl (80.0-96.0); PLATELET COUNT, AUTOMATED 311 10^3/uL (150-450); RED BLOOD COUNT 3.65 10^6/uL (4.00-5.40); WHITE BLOOD COUNT 8.6 10^3/uL (4.0-10.0)
== END ==
LOC: SKLAB3 07:00
PROVIDERS: ATTEND Nurse Practitioner
DX: K92.2 Gastrointestinal hemorrhage, unspecified (principal)

== ENCOUNTER → 2022-09-23 | Outpatient (REF) | payer MEDICARE, BC, OTHER, MEDICAID ==
[2022-09-23 10:18] LABS: HEMATOCRIT 35.2 % (36.0-47.0); HEMOGLOBIN 11.2 g/dl (12.0-15.5); MEAN CORPUSCULAR HEMOGLOBIN 29.2 pg (27.0-33.0); MEAN CORPUSCULAR HGB CONC 31.8 g/dl (32.0-36.5); MEAN CORPUSCULAR VOLUME 91.9 fl (80.0-96.0); PLATELET COUNT, AUTOMATED 340 10^3/uL (150-450); RED BLOOD COUNT 3.83 10^6/uL (4.00-5.40); WHITE BLOOD COUNT 15.6 10^3/uL (4.0-10.0)
== END ==
LOC: SKLAB3 12:09
PROVIDERS: ATTEND Nurse Practitioner
DX: D64.9 Anemia, unspecified (principal)

== ENCOUNTER → 2022-09-30 | Outpatient (REF) | payer MEDICARE, BC, OTHER, MEDICAID ==
[2022-09-30 09:35] LABS: HEMATOCRIT 38.5 % (36.0-47.0); HEMOGLOBIN 12.2 g/dl (12.0-15.5); MEAN CORPUSCULAR HEMOGLOBIN 28.9 pg (27.0-33.0); MEAN CORPUSCULAR HGB CONC 31.7 g/dl (32.0-36.5); MEAN CORPUSCULAR VOLUME 91.2 fl (80.0-96.0); PLATELET COUNT, AUTOMATED 320 10^3/uL (150-450); RED BLOOD COUNT 4.22 10^6/uL (4.00-5.40); WHITE BLOOD COUNT 15.5 10^3/uL (4.0-10.0)
== END ==
LOC: SKLAB3 07:00
PROVIDERS: ATTEND Nurse Practitioner
DX: D72.829 Elevated white blood cell count, unspecified (principal)

== ENCOUNTER → 2022-10-07 | Outpatient (REF) | payer MEDICARE, BC, OTHER, MEDICAID ==
[2022-10-07 08:57] LABS: HEMATOCRIT 35.1 % (36.0-47.0); HEMOGLOBIN 11.4 g/dl (12.0-15.5); MEAN CORPUSCULAR HEMOGLOBIN 29.1 pg (27.0-33.0); MEAN CORPUSCULAR HGB CONC 32.5 g/dl (32.0-36.5); MEAN CORPUSCULAR VOLUME 89.5 fl (80.0-96.0); PLATELET COUNT, AUTOMATED 255 10^3/uL (150-450); RED BLOOD COUNT 3.92 10^6/uL (4.00-5.40); WHITE BLOOD COUNT 10.8 10^3/uL (4.0-10.0)
== END ==
LOC: SKLAB3 09:20
PROVIDERS: ATTEND Nurse Practitioner
DX: D64.9 Anemia, unspecified (principal)

== ENCOUNTER → 2022-11-03 | Outpatient (CLI) | payer MEDICARE, MEDICAID ==
[~2022-11-03] MED LIST changes: -LOSA100T45 PO; +LOSA100T46 PO
== END ==
LOC: M RAD 14:01
PROVIDERS: ATTEND Nurse Practitioner
DX: L03.115 Cellulitis of right lower limb (principal); L03.116 Cellulitis of left lower limb; R60.0 Localized edema; M79.661 Pain in right lower leg; M79.662 Pain in left lower leg

== ENCOUNTER → 2022-11-11 | Outpatient (REF) | payer MEDICARE, MEDICAID ==
[2022-11-11 07:54] LABS: BLOOD UREA NITROGEN 9 MG/DL (9-23); CALCIUM LEVEL 9.1 MG/DL (8.3-10.6); CARBON DIOXIDE LEVEL 34 MMOL/L (20-31); CHLORIDE LEVEL 87 MMOL/L (98-107); CREATININE FOR GFR 0.37 MG/DL (0.55-1.30); GLOMERULAR FILTRATION RATE > 60.0 (>39); GLUCOSE, FASTING 158 MG/DL (74-106); POTASSIUM SERUM 3.1 MMOL/L (3.5-5.1); SODIUM LEVEL 125 MMOL/L (136-145)
== END ==
LOC: SKLAB3 10:52
PROVIDERS: ATTEND Nurse Practitioner
DX: I51.7 Cardiomegaly (principal); J98.8 Other specified respiratory disorders; R60.9 Edema, unspecified

== ENCOUNTER → 2022-11-12 | Outpatient (REF) | payer MEDICARE, MEDICAID ==
[2022-11-12 07:42] LABS: CORTISOL AM 18.2 UG/DL (4.3-22.4)
[2022-11-12 07:45] LABS: THYROID STIMULATING HORMONE 2.059 uIU/ML (0.55-4.78)
[2022-11-12 07:47] LABS: ALBUMIN 3.7 G/DL (3.2-5.2); ALKALINE PHOSPHATASE 122 U/L (46-116); ALT/SGPT < 9 U/L (7.0-40); AST/SGOT 15 U/L (<34); BILIRUBIN,TOTAL 0.3 MG/DL (0.3-1.2); BLOOD UREA NITROGEN 6 MG/DL (9-23); CALCIUM LEVEL 8.7 MG/DL (8.3-10.6); CARBON DIOXIDE LEVEL 35 MMOL/L (20-31); CHLORIDE LEVEL 85 MMOL/L (98-107); GLOMERULAR FILTRATION RATE > 60.0 (>39); GLUCOSE, FASTING 180 MG/DL (74-106); POTASSIUM SERUM 4.1 MMOL/L (3.5-5.1); SODIUM LEVEL 128 MMOL/L (136-145); TOTAL PROTEIN 7.1 G/DL (5.7-8.2)
== END ==
LOC: SKLAB3 11:50
PROVIDERS: ATTEND Nurse Practitioner
DX: E87.1 Hypo-osmolality and hyponatremia (principal)

== ENCOUNTER → 2022-11-14 | Outpatient (REF) | payer MEDICARE, MEDICAID ==
[2022-11-14 09:03] LABS: BLOOD UREA NITROGEN 7 MG/DL (9-23); CALCIUM LEVEL 8.5 MG/DL (8.3-10.6); CARBON DIOXIDE LEVEL 33 MMOL/L (20-31); CHLORIDE LEVEL 88 MMOL/L (98-107); CREATININE FOR GFR 0.37 MG/DL (0.55-1.30); GLOMERULAR FILTRATION RATE > 60.0 (>39); GLUCOSE, FASTING 176 MG/DL (74-106); SODIUM LEVEL 131 MMOL/L (136-145)
== END ==
LOC: SKLAB3 06:54
PROVIDERS: ATTEND Nurse Practitioner
DX: E87.1 Hypo-osmolality and hyponatremia (principal)

== ENCOUNTER → 2022-12-23 | Outpatient (REF) | payer MEDICARE, MEDICAID ==
[2022-12-23 08:12] LABS: HEMOGLOBIN 11.1 g/dl (12.0-15.5); MEAN CORPUSCULAR HEMOGLOBIN 27.7 pg (27.0-33.0); MEAN CORPUSCULAR HGB CONC 31.7 g/dl (32.0-36.5); MEAN CORPUSCULAR VOLUME 87.3 fl (80.0-96.0); PLATELET COUNT, AUTOMATED 281 10^3/uL (150-450); RED BLOOD COUNT 4.01 10^6/uL (4.00-5.40)
[2022-12-23 09:05] LABS: HEMOGLOBIN A1c 7.4 % (4.0-6.0)
== END ==
LOC: SKLAB3 07:16
PROVIDERS: ATTEND Nurse Practitioner
DX: E11.9 Type 2 diabetes mellitus without complications (principal); D64.9 Anemia, unspecified

== ENCOUNTER → 2023-01-20 | Outpatient (REF) | payer MEDICARE, MEDICAID ==
[2023-01-20 07:41] LABS: BLOOD UREA NITROGEN 8 MG/DL (9-23); CALCIUM LEVEL 8.8 MG/DL (8.3-10.6); CARBON DIOXIDE LEVEL 29 MMOL/L (20-31); CHLORIDE LEVEL 94 MMOL/L (98-107); CREATININE FOR GFR 0.37 MG/DL (0.55-1.30); GLOMERULAR FILTRATION RATE > 60.0 (>39); GLUCOSE, FASTING 135 MG/DL (74-106); POTASSIUM SERUM 4.1 MMOL/L (3.5-5.1); SODIUM LEVEL 133 MMOL/L (136-145)
== END ==
LOC: SKLAB3 09:35
PROVIDERS: ATTEND Nurse Practitioner
DX: I50.9 Heart failure, unspecified (principal)

== ENCOUNTER → 2023-02-17 | Outpatient (REF) | payer MEDICARE, MEDICAID ==
[2023-02-17 09:11] LABS: BLOOD UREA NITROGEN 8 MG/DL (9-23); CALCIUM LEVEL 8.9 MG/DL (8.3-10.6); CARBON DIOXIDE LEVEL 31 MMOL/L (20-31); CHLORIDE LEVEL 94 MMOL/L (98-107); CREATININE FOR GFR 0.37 MG/DL (0.55-1.30); GLOMERULAR FILTRATION RATE > 60.0 (>39); GLUCOSE, FASTING 146 MG/DL (74-106); POTASSIUM SERUM 3.9 MMOL/L (3.5-5.1); SODIUM LEVEL 133 MMOL/L (136-145)
== END ==
LOC: SKLAB3 14:35
PROVIDERS: ATTEND Nurse Practitioner
DX: I50.9 Heart failure, unspecified (principal)

== ENCOUNTER → 2023-03-03 | Outpatient (REF) | payer MEDICARE, MEDICAID | LOC: SKLAB3 12:47 | PROVIDERS: ATTEND Nurse Practitioner Adult Health | DX: M25.511 Pain in right shoulder (principal); M25.512 Pain in left shoulder ==

== ENCOUNTER → 2023-04-21 | Outpatient (REF) | payer MEDICARE, MEDICAID ==
[2023-04-21 09:59] LABS: BLOOD UREA NITROGEN 8 MG/DL (9-23); CALCIUM LEVEL 8.5 MG/DL (8.3-10.6); CARBON DIOXIDE LEVEL 32 MMOL/L (20-31); CHLORIDE LEVEL 96 MMOL/L (98-107); CREATININE FOR GFR 0.39 MG/DL (0.55-1.30); GLOMERULAR FILTRATION RATE > 60.0 (>39); GLUCOSE, FASTING 119 MG/DL (74-106); POTASSIUM SERUM 4.1 MMOL/L (3.5-5.1); SODIUM LEVEL 134 MMOL/L (136-145)
== END ==
LOC: SKLAB3 07:00
PROVIDERS: ATTEND Nurse Practitioner
DX: R60.9 Edema, unspecified (principal)

== ENCOUNTER → 2023-05-26 | Outpatient (REF) | payer MEDICARE, MEDICAID ==
[2023-05-26 08:43] LABS: ALBUMIN 4.2 G/DL (3.2-5.2); ALKALINE PHOSPHATASE 127 U/L (46-116); ALT/SGPT 11 U/L (7.0-40); AST/SGOT 13 U/L (<34); BILIRUBIN,TOTAL 0.4 MG/DL (0.3-1.2); BLOOD UREA NITROGEN 9 MG/DL (9-23); CALCIUM LEVEL 9.4 MG/DL (8.3-10.6); CARBON DIOXIDE LEVEL 28 MMOL/L (20-31); CHLORIDE LEVEL 98 MMOL/L (98-107); CREATININE FOR GFR 0.36 MG/DL (0.55-1.30); GLOMERULAR FILTRATION RATE > 60.0 (>39); GLUCOSE, FASTING 143 MG/DL (74-106); POTASSIUM SERUM 4.4 MMOL/L (3.5-5.1); SODIUM LEVEL 136 MMOL/L (136-145)
== END ==
LOC: SKLAB3 07:00
PROVIDERS: ATTEND Internal Medicine
DX: E11.9 Type 2 diabetes mellitus without complications (principal)

== ENCOUNTER → 2023-05-28 | Outpatient (REF) | LOC: SKLAB3 06:37 | PROVIDERS: ATTEND Internal Medicine | DX: S62.306A Unspecified fracture of fifth metacarpal bone, right hand, initial encounter for closed fracture (principal); W19.XXXA Unspecified fall, initial encounter; Y92.129 Unspecified place in nursing home as the place of occurrence of the external cause; Y93.9 Activity, unspecified ==

== ENCOUNTER → 2023-06-11 | Outpatient (CLI) | payer MEDICARE, MEDICAID | LOC: M SOG 11:17 | PROVIDERS: ATTEND Physician Assistant | DX: S62.326A Displaced fracture of shaft of fifth metacarpal bone, right hand, initial encounter for closed fracture (principal); Y93.9 Activity, unspecified; Y92.9 Unspecified place or not applicable ==

== ENCOUNTER → 2023-06-18 | Outpatient (CLI) | payer MEDICARE, MEDICAID | LOC: M SOG 09:13 | PROVIDERS: ATTEND Physician Assistant | DX: M79.641 Pain in right hand (principal) ==

== ENCOUNTER → 2023-06-24 | Outpatient (REF) | payer MEDICARE, MEDICAID | LOC: SKLAB3 13:02 | PROVIDERS: ATTEND Internal Medicine | DX: J06.9 Acute upper respiratory infection, unspecified (principal) ==

== ENCOUNTER → 2023-06-24 | Outpatient (REF) | payer MEDICARE, MEDICAID ==
[2023-06-24 13:13] LABS: BLOOD UREA NITROGEN 12 MG/DL (9-23); CARBON DIOXIDE LEVEL 31 MMOL/L (20-31); CHLORIDE LEVEL 98 MMOL/L (98-107); CREATININE FOR GFR 0.37 MG/DL (0.55-1.30); GLOMERULAR FILTRATION RATE > 60.0 (>39); GLUCOSE, FASTING 106 MG/DL (74-106); SODIUM LEVEL 135 MMOL/L (136-145)
[2023-06-24 13:24] LABS: HEMOGLOBIN A1c 6.4 % (4.0-6.0)
== END ==
LOC: SKLAB3 06-23 08:07
PROVIDERS: ATTEND Internal Medicine
DX: E11.9 Type 2 diabetes mellitus without complications (principal); R60.9 Edema, unspecified

== ENCOUNTER → 2023-07-20 | Outpatient (CLI) | payer MEDICARE, MEDICAID | LOC: M SOG 08:18 | PROVIDERS: ATTEND Physician Assistant | DX: M79.641 Pain in right hand (principal) ==

== ENCOUNTER → 2023-07-21 | Outpatient (REF) | payer MEDICARE, MEDICAID ==
[2023-07-21 11:01] LABS: BLOOD UREA NITROGEN 5 MG/DL (9-23); CARBON DIOXIDE LEVEL 32 MMOL/L (20-31); CHLORIDE LEVEL 95 MMOL/L (98-107); CREATININE FOR GFR 0.38 MG/DL (0.55-1.30); GLOMERULAR FILTRATION RATE > 60.0 (>39); GLUCOSE, FASTING 141 MG/DL (74-106); POTASSIUM SERUM 3.5 MMOL/L (3.5-5.1); SODIUM LEVEL 132 MMOL/L (136-145)
== END ==
LOC: SKLAB3 09:20
PROVIDERS: ATTEND Internal Medicine
DX: R60.9 Edema, unspecified (principal)

== ENCOUNTER → 2023-08-25 | Outpatient (REF) | payer MEDICARE, MEDICAID ==
[2023-08-25 13:41] LABS: BLOOD UREA NITROGEN 18 MG/DL (9-23); CARBON DIOXIDE LEVEL 29 MMOL/L (20-31); CHLORIDE LEVEL 96 MMOL/L (98-107); CREATININE FOR GFR 0.38 MG/DL (0.55-1.30); GLOMERULAR FILTRATION RATE > 60.0 (>39); GLUCOSE, FASTING 108 MG/DL (74-106); SODIUM LEVEL 133 MMOL/L (136-145)
== END ==
LOC: SKLAB3 10:02
PROVIDERS: ATTEND Internal Medicine
DX: R60.9 Edema, unspecified (principal)

== ENCOUNTER → 2023-09-22 | Outpatient (REF) | payer MEDICARE, MEDICAID ==
[2023-09-22 08:01] LABS: BLOOD UREA NITROGEN 17 MG/DL (9-23); CALCIUM LEVEL 9.2 MG/DL (8.3-10.6); CARBON DIOXIDE LEVEL 30 MMOL/L (20-31); CHLORIDE LEVEL 100 MMOL/L (98-107); CREATININE FOR GFR 0.42 MG/DL (0.55-1.30); GLOMERULAR FILTRATION RATE > 60.0 (>39); GLUCOSE, FASTING 117 MG/DL (74-106); POTASSIUM SERUM 4.4 MMOL/L (3.5-5.1); SODIUM LEVEL 134 MMOL/L (136-145)
== END ==
LOC: SKLAB3 10:24
PROVIDERS: ATTEND Nurse Practitioner
DX: E11.9 Type 2 diabetes mellitus without complications (principal)

== ENCOUNTER → 2023-10-28 | Outpatient (REF) | payer MEDICARE, MEDICAID ==
[2023-10-28 09:31] LABS: HEMATOCRIT 39.3 % (36.0-47.0); MEAN CORPUSCULAR HEMOGLOBIN 29.5 pg (27.0-33.0); MEAN CORPUSCULAR HGB CONC 33.1 g/dl (32.0-36.5); MEAN CORPUSCULAR VOLUME 89.1 fl (80.0-96.0); PLATELET COUNT, AUTOMATED 271 10^3/uL (150-450); RED BLOOD COUNT 4.41 10^6/uL (4.00-5.40); WHITE BLOOD COUNT 10.4 10^3/uL (4.0-10.0)
[2023-10-28 10:11] LABS: BLOOD UREA NITROGEN 20 MG/DL (9-23); CALCIUM LEVEL 8.6 MG/DL (8.3-10.6); CARBON DIOXIDE LEVEL 29 MMOL/L (20-31); CHLORIDE LEVEL 100 MMOL/L (98-107); CREATININE FOR GFR 0.42 MG/DL (0.55-1.30); GLOMERULAR FILTRATION RATE > 60.0 (>39); GLUCOSE, FASTING 110 MG/DL (74-106); POTASSIUM SERUM 4.4 MMOL/L (3.5-5.1); SODIUM LEVEL 140 MMOL/L (136-145)
== END ==
LOC: SKLAB3 07:00
PROVIDERS: ATTEND Nurse Practitioner
DX: I10 Essential (primary) hypertension (principal); R60.9 Edema, unspecified

== ENCOUNTER → 2023-11-09 | Outpatient (REF) | payer MEDICARE, MEDICAID ==
[2023-11-09 09:43] LABS: BLOOD UREA NITROGEN 13 MG/DL (9-23); CALCIUM LEVEL 8.9 MG/DL (8.3-10.6); CARBON DIOXIDE LEVEL 24 MMOL/L (20-31); CHLORIDE LEVEL 98 MMOL/L (98-107); CREATININE FOR GFR 0.39 MG/DL (0.55-1.30); GLOMERULAR FILTRATION RATE > 60.0 (>39); GLUCOSE, FASTING 121 MG/DL (74-106); SODIUM LEVEL 133 MMOL/L (136-145)
== END ==
LOC: SKLAB3 07:04
PROVIDERS: ATTEND Internal Medicine
DX: E87.1 Hypo-osmolality and hyponatremia (principal)

== ENCOUNTER → 2023-11-23 | Outpatient (REF) | payer MEDICARE, MEDICAID ==
[2023-11-23 09:11] LABS: CALCIUM LEVEL 8.7 MG/DL (8.3-10.6); CREATININE FOR GFR 1.36 MG/DL (0.55-1.30); POTASSIUM SERUM 4.4 MMOL/L (3.5-5.1)
== END ==
LOC: SKLAB3 07:17
PROVIDERS: ATTEND Internal Medicine
DX: E87.1 Hypo-osmolality and hyponatremia (principal)

== ENCOUNTER → 2023-12-16 | Outpatient (REF) | payer MEDICARE, MEDICAID ==
[2023-12-16 18:41] LABS: APPEARANCE, URINE CLEAR (CLEAR); BACTERIA, URINE AUTO 1+ (NEGATIVE); BILIRUBIN, URINE AUTO NEGATIVE (NEGATIVE); BLOOD, URINE BLOOD NEGATIVE (NEGATIVE); COLOR, URINE STRAW (YELLOW); GLUCOSE, URINE (UA) AUTO NEGATIVE (NEGATIVE); KETONE, URINE AUTO NEGATIVE (NEGATIVE); LEUKOCYTE ESTERASE, URINE AUTO 1+ (NEGATIVE); NITRITE, URINE AUTO NEGATIVE (NEGATIVE); PROTEIN, URINE AUTO NEGATIVE (NEGATIVE); RBC, URINE AUTO 2 /HPF (0-3); SPECIFIC GRAVITY URINE AUTO 1.005 (1.002-1.035); SQUAMOUS EPITHELIAL CELL UR AU 2 /HPF (0-6); UROBILINOGEN, URINE AUTO 0.2 mg/dL (0.0-2.0); WBC, URINE AUTO 4 /HPF (0-3)
== END ==
LOC: SKLAB3 15:20
PROVIDERS: ATTEND Internal Medicine
DX: R31.9 Hematuria, unspecified (principal)

== ENCOUNTER → 2024-01-04 | Outpatient (REF) | payer MEDICARE, MEDICAID ==
[2024-01-04 08:59] LABS: HEMATOCRIT 38.1 % (36.0-47.0); HEMOGLOBIN 12.9 g/dl (12.0-15.5); MEAN CORPUSCULAR HEMOGLOBIN 30.5 pg (27.0-33.0); MEAN CORPUSCULAR HGB CONC 33.9 g/dl (32.0-36.5); MEAN CORPUSCULAR VOLUME 90.1 fl (80.0-96.0); PLATELET COUNT, AUTOMATED 254 10^3/uL (150-450); RED BLOOD COUNT 4.23 10^6/uL (4.00-5.40); WHITE BLOOD COUNT 8.6 10^3/uL (4.0-10.0)
[2024-01-04 09:29] LABS: BLOOD UREA NITROGEN 12 MG/DL (9-23); CALCIUM LEVEL 9.2 MG/DL (8.3-10.6); CARBON DIOXIDE LEVEL 29 MMOL/L (20-31); CHLORIDE LEVEL 96 MMOL/L (98-107); CREATININE FOR GFR 0.38 MG/DL (0.55-1.30); GLOMERULAR FILTRATION RATE > 60.0 (>39); GLUCOSE, FASTING 117 MG/DL (74-106); POTASSIUM SERUM 4.1 MMOL/L (3.5-5.1); SODIUM LEVEL 132 MMOL/L (136-145)
== END ==
LOC: SKLAB3 07:14
PROVIDERS: ATTEND Internal Medicine
DX: E11.9 Type 2 diabetes mellitus without complications (principal); I10 Essential (primary) hypertension; R60.9 Edema, unspecified

== ENCOUNTER → 2024-01-26 | Outpatient (REF) | payer MEDICARE, MEDICAID ==
[2024-01-26 09:24] LABS: BLOOD UREA NITROGEN 8 MG/DL (9-23); CALCIUM LEVEL 8.9 MG/DL (8.3-10.6); CARBON DIOXIDE LEVEL 32 MMOL/L (20-31); CHLORIDE LEVEL 96 MMOL/L (98-107); CREATININE FOR GFR 0.39 MG/DL (0.55-1.30); GLOMERULAR FILTRATION RATE > 60.0 (>39); GLUCOSE, FASTING 104 MG/DL (74-106); POTASSIUM SERUM 5.9 MMOL/L (3.5-5.1); SODIUM LEVEL 131 MMOL/L (136-145)
== END ==
LOC: SKLAB3 07:47
PROVIDERS: ATTEND Internal Medicine
DX: R60.9 Edema, unspecified (principal)

== ENCOUNTER → 2024-01-27 | Outpatient (REF) | payer MEDICARE, MEDICAID | LOC: SKLAB3 10:53 | PROVIDERS: ATTEND Internal Medicine | DX: E87.5 Hyperkalemia (principal) ==

== ENCOUNTER → 2024-02-23 | Outpatient (REF) | payer MEDICARE, MEDICAID ==
[2024-02-23 14:27] LABS: BLOOD UREA NITROGEN 17 MG/DL (9-23); CALCIUM LEVEL 9.1 MG/DL (8.3-10.6); CARBON DIOXIDE LEVEL 31 MMOL/L (20-31); CHLORIDE LEVEL 97 MMOL/L (98-107); CREATININE FOR GFR 0.43 MG/DL (0.55-1.30); GLOMERULAR FILTRATION RATE > 60.0 (>39); GLUCOSE, FASTING 127 MG/DL (74-106); POTASSIUM SERUM 4.4 MMOL/L (3.5-5.1); SODIUM LEVEL 131 MMOL/L (136-145)
== END ==
LOC: SKLAB3 07:19
PROVIDERS: ATTEND Internal Medicine
DX: R60.9 Edema, unspecified (principal)

== ENCOUNTER → 2024-03-22 | Outpatient (REF) | payer MEDICARE, MEDICAID ==
[2024-03-22 16:27] LABS: BLOOD UREA NITROGEN 15 MG/DL (9-23); CARBON DIOXIDE LEVEL 31 MMOL/L (20-31); CHLORIDE LEVEL 99 MMOL/L (98-107); CREATININE FOR GFR 0.45 MG/DL (0.55-1.30); GLOMERULAR FILTRATION RATE > 60.0 (>39); GLUCOSE, FASTING 139 MG/DL (74-106); POTASSIUM SERUM 3.6 MMOL/L (3.5-5.1); SODIUM LEVEL 136 MMOL/L (136-145)
== END ==
LOC: SKLAB3 07:00
PROVIDERS: ATTEND Internal Medicine
DX: R60.9 Edema, unspecified (principal)

== ENCOUNTER → 2024-04-28 | Outpatient (REF) | payer MEDICARE, MEDICAID ==
[2024-04-28 08:51] LABS: HEMATOCRIT 36.2 % (36.0-47.0); HEMOGLOBIN 11.8 g/dl (12.0-15.5); MEAN CORPUSCULAR HEMOGLOBIN 29.8 pg (27.0-33.0); MEAN CORPUSCULAR HGB CONC 32.6 g/dl (32.0-36.5); MEAN CORPUSCULAR VOLUME 91.4 fl (80.0-96.0); PLATELET COUNT, AUTOMATED 251 10^3/uL (150-450); RED BLOOD COUNT 3.96 10^6/uL (4.00-5.40); WHITE BLOOD COUNT 7.3 10^3/uL (4.0-10.0)
[2024-04-28 09:06] LABS: BLOOD UREA NITROGEN 15 MG/DL (9-23); CALCIUM LEVEL 9.4 MG/DL (8.3-10.6); CARBON DIOXIDE LEVEL 33 MMOL/L (20-31); CHLORIDE LEVEL 102 MMOL/L (98-107); CREATININE FOR GFR 0.45 MG/DL (0.55-1.30); GLOMERULAR FILTRATION RATE > 60.0 (>39); GLUCOSE, FASTING 109 MG/DL (74-106); POTASSIUM SERUM 3.7 MMOL/L (3.5-5.1); SODIUM LEVEL 139 MMOL/L (136-145)
== END ==
LOC: SKLAB3 07:00
PROVIDERS: ATTEND Internal Medicine
DX: I10 Essential (primary) hypertension (principal); R60.9 Edema, unspecified

== ENCOUNTER → 2024-05-24 | Outpatient (REF) | payer MEDICARE, MEDICAID ==
[2024-05-24 09:13] LABS: BLOOD UREA NITROGEN 18 MG/DL (9-23); CALCIUM LEVEL 9.2 MG/DL (8.3-10.6); CARBON DIOXIDE LEVEL 32 MMOL/L (20-31); CHLORIDE LEVEL 98 MMOL/L (98-107); CREATININE FOR GFR 0.48 MG/DL (0.55-1.30); GLOMERULAR FILTRATION RATE > 60.0 (>39); GLUCOSE, FASTING 116 MG/DL (74-106); POTASSIUM SERUM 3.1 MMOL/L (3.5-5.1); SODIUM LEVEL 135 MMOL/L (136-145)
== END ==
LOC: SKLAB3 07:00
PROVIDERS: ATTEND Internal Medicine
DX: R60.9 Edema, unspecified (principal)

== ENCOUNTER → 2024-05-27 | Outpatient (REF) | payer MEDICARE, MEDICAID | LOC: SKLAB3 07:00 | PROVIDERS: ATTEND Internal Medicine | DX: E87.6 Hypokalemia (principal) ==

== ENCOUNTER → 2024-06-08 | Outpatient (CLI) | payer MEDICARE, MEDICAID ==
[2024-06-08 19:09] LABS: HEMATOCRIT 35.6 % (36.0-47.0); HEMOGLOBIN 11.8 g/dl (12.0-15.5); MEAN CORPUSCULAR HEMOGLOBIN 30.3 pg (27.0-33.0); MEAN CORPUSCULAR HGB CONC 33.1 g/dl (32.0-36.5); MEAN CORPUSCULAR VOLUME 91.5 fl (80.0-96.0); PLATELET COUNT, AUTOMATED 214 10^3/uL (150-450); RED BLOOD COUNT 3.89 10^6/uL (4.00-5.40); WHITE BLOOD COUNT 17.9 10^3/uL (4.0-10.0)
[2024-06-08 19:17] LABS: KETONE, URINE AUTO RFX NEGATIVE (NEGATIVE); LEUKOCYTE ESTERASE UR AUTO RFX 3+ (NEGATIVE); NITRITE, URINE AUTO RFX POSITIVE (NEGATIVE); RBC, URINE AUTO RFX 22 /HPF (0-3); SQUAM EPITHELIAL CELL UR AURFX 0 /HPF (0-6); WBC, URINE AUTO RFX TNTC /HPF (0-3)
[2024-06-08 19:57] LABS: BLOOD UREA NITROGEN 18 MG/DL (9-23); CALCIUM LEVEL 9.3 MG/DL (8.3-10.6); CARBON DIOXIDE LEVEL 35 MMOL/L (20-31); CHLORIDE LEVEL 92 MMOL/L (98-107); CREATININE FOR GFR 0.64 MG/DL (0.55-1.30); GLOMERULAR FILTRATION RATE > 60.0 (>39); GLUCOSE, FASTING 189 MG/DL (74-106); POTASSIUM SERUM 2.4 MMOL/L (3.5-5.1); SODIUM LEVEL 136 MMOL/L (136-145)
== END ==
LOC: SKLAB3 17:16 → M LAB 17:16
PROVIDERS: ATTEND Nurse Practitioner
DX: N39.0 Urinary tract infection, site not specified (principal)

== ENCOUNTER → 2024-06-10 | Outpatient (REF) | payer MEDICARE, MEDICAID ==
[2024-06-10 11:02] LABS: BLOOD UREA NITROGEN 12 MG/DL (9-23); CALCIUM LEVEL 8.4 MG/DL (8.3-10.6); CARBON DIOXIDE LEVEL 36 MMOL/L (20-31); CHLORIDE LEVEL 97 MMOL/L (98-107); CREATININE FOR GFR 0.45 MG/DL (0.55-1.30); GLOMERULAR FILTRATION RATE > 60.0 (>39); GLUCOSE, FASTING 160 MG/DL (74-106); POTASSIUM SERUM 2.7 MMOL/L (3.5-5.1); SODIUM LEVEL 139 MMOL/L (136-145)
== END ==
LOC: SKLAB3 07:25
PROVIDERS: ATTEND Internal Medicine
DX: E87.6 Hypokalemia (principal); R11.2 Nausea with vomiting, unspecified

== ENCOUNTER → 2024-06-10 | Outpatient (REF) | payer MEDICARE, MEDICAID ==
[2024-06-10 10:24] LABS: HEMOGLOBIN 11.7 g/dl (12.0-15.5); MEAN CORPUSCULAR HEMOGLOBIN 30.1 pg (27.0-33.0); MEAN CORPUSCULAR HGB CONC 33.4 g/dl (32.0-36.5); PLATELET COUNT, AUTOMATED 203 10^3/uL (150-450); RED BLOOD COUNT 3.89 10^6/uL (4.00-5.40); WHITE BLOOD COUNT 7.3 10^3/uL (4.0-10.0)
== END ==
LOC: SKLAB3 09:12
PROVIDERS: ATTEND Internal Medicine
DX: R11.2 Nausea with vomiting, unspecified (principal)

== ENCOUNTER → 2024-06-12 | Outpatient (REF) | payer MEDICARE, MEDICAID ==
[2024-06-12 07:47] LABS: BLOOD UREA NITROGEN 12 MG/DL (9-23); CALCIUM LEVEL 9.6 MG/DL (8.3-10.6); CARBON DIOXIDE LEVEL 33 MMOL/L (20-31); CHLORIDE LEVEL 98 MMOL/L (98-107); CREATININE FOR GFR 0.43 MG/DL (0.55-1.30); GLOMERULAR FILTRATION RATE > 60.0 (>39); GLUCOSE, FASTING 110 MG/DL (74-106); POTASSIUM SERUM 4.3 MMOL/L (3.5-5.1); SODIUM LEVEL 138 MMOL/L (136-145)
== END ==
LOC: SKLAB3 07:00
PROVIDERS: ATTEND Internal Medicine
DX: E87.6 Hypokalemia (principal)

== ENCOUNTER → 2024-06-14 | Outpatient (REF) | payer MEDICARE, MEDICAID ==
[2024-06-14 11:58] LABS: BLOOD UREA NITROGEN 10 MG/DL (9-23); CALCIUM LEVEL 9.2 MG/DL (8.3-10.6); CARBON DIOXIDE LEVEL 33 MMOL/L (20-31); CHLORIDE LEVEL 96 MMOL/L (98-107); CREATININE FOR GFR 0.47 MG/DL (0.55-1.30); GLOMERULAR FILTRATION RATE > 60.0 (>39); GLUCOSE, FASTING 145 MG/DL (74-106); POTASSIUM SERUM 4.2 MMOL/L (3.5-5.1); SODIUM LEVEL 137 MMOL/L (136-145)
== END ==
LOC: SKLAB3 07:05
PROVIDERS: ATTEND Internal Medicine
DX: E87.6 Hypokalemia (principal)

== ENCOUNTER → 2024-06-14 | Outpatient (REF) | payer MEDICARE, MEDICAID | LOC: SKLAB3 12:13 | PROVIDERS: ATTEND Internal Medicine | DX: Z53.9 Procedure and treatment not carried out, unspecified reason (principal) ==

== ENCOUNTER → 2024-06-21 | Outpatient (REF) | payer MEDICARE, MEDICAID ==
[2024-06-21 10:12] LABS: BLOOD UREA NITROGEN 15 MG/DL (9-23); CALCIUM LEVEL 9.2 MG/DL (8.3-10.6); CARBON DIOXIDE LEVEL 27 MMOL/L (20-31); CHLORIDE LEVEL 93 MMOL/L (98-107); CREATININE FOR GFR 0.39 MG/DL (0.55-1.30); GLOMERULAR FILTRATION RATE > 60.0 (>39); GLUCOSE, FASTING 118 MG/DL (74-106); POTASSIUM SERUM 5.5 MMOL/L (3.5-5.1); SODIUM LEVEL 129 MMOL/L (136-145)
== END ==
LOC: SKLAB3 07:00
PROVIDERS: ATTEND Internal Medicine
DX: E87.5 Hyperkalemia (principal)

== ENCOUNTER → 2024-06-21 | Outpatient (REF) | payer MEDICARE, MEDICAID ==
[2024-06-21 16:02] LABS: BLOOD UREA NITROGEN 21 MG/DL (9-23); CALCIUM LEVEL 9.2 MG/DL (8.3-10.6); CARBON DIOXIDE LEVEL 27 MMOL/L (20-31); CHLORIDE LEVEL 94 MMOL/L (98-107); GLOMERULAR FILTRATION RATE > 60.0 (>39); GLUCOSE, FASTING 141 MG/DL (74-106); POTASSIUM SERUM 4.4 MMOL/L (3.5-5.1); SODIUM LEVEL 129 MMOL/L (136-145)
== END ==
LOC: SKLAB3 14:40
PROVIDERS: ATTEND Internal Medicine
DX: E87.5 Hyperkalemia (principal)

== ENCOUNTER → 2024-06-30 | Outpatient (REF) | payer MEDICARE, MEDICAID ==
[2024-06-30 08:46] LABS: BLOOD UREA NITROGEN 17 MG/DL (9-23); CALCIUM LEVEL 9.7 MG/DL (8.3-10.6); CARBON DIOXIDE LEVEL 31 MMOL/L (20-31); CHLORIDE LEVEL 94 MMOL/L (98-107); CREATININE FOR GFR 0.41 MG/DL (0.55-1.30); GLOMERULAR FILTRATION RATE > 60.0 (>39); GLUCOSE, FASTING 110 MG/DL (74-106); POTASSIUM SERUM 4.2 MMOL/L (3.5-5.1); SODIUM LEVEL 134 MMOL/L (136-145)
== END ==
LOC: SKLAB3 06:01
PROVIDERS: ATTEND Internal Medicine
DX: E87.6 Hypokalemia (principal)

== ENCOUNTER → 2024-08-05 | Outpatient (REF) | payer MEDICARE, MEDICAID ==
[2024-08-05 11:34] LABS: BLOOD UREA NITROGEN 12 MG/DL (9-23); CALCIUM LEVEL 9.4 MG/DL (8.3-10.6); CARBON DIOXIDE LEVEL 29 MMOL/L (20-31); CHLORIDE LEVEL 96 MMOL/L (98-107); GLOMERULAR FILTRATION RATE > 60.0 (>39); GLUCOSE, FASTING 150 MG/DL (74-106); POTASSIUM SERUM 3.8 MMOL/L (3.5-5.1); SODIUM LEVEL 135 MMOL/L (136-145)
== END ==
LOC: SKLAB3 07:00
PROVIDERS: ATTEND Internal Medicine
DX: E11.9 Type 2 diabetes mellitus without complications (principal); R60.9 Edema, unspecified

== ENCOUNTER → 2024-08-19 | Outpatient (REF) | payer MEDICARE, MEDICAID | LOC: SKLAB3 13:43 | PROVIDERS: ATTEND Internal Medicine | DX: Z53.8 Procedure and treatment not carried out for other reasons (principal) ==

== ENCOUNTER → 2024-08-19 | Outpatient (REF) | payer MEDICARE, MEDICAID | LOC: SKLAB8 14:11 | PROVIDERS: ATTEND Internal Medicine | DX: Z53.8 Procedure and treatment not carried out for other reasons (principal) ==

== ENCOUNTER → 2024-08-23 | Outpatient (REF) | payer MEDICARE, MEDICAID ==
[2024-08-23 09:12] LABS: BLOOD UREA NITROGEN 16 MG/DL (9-23); CARBON DIOXIDE LEVEL 29 MMOL/L (20-31); CHLORIDE LEVEL 95 MMOL/L (98-107); CREATININE FOR GFR 0.41 MG/DL (0.55-1.30); GLOMERULAR FILTRATION RATE > 60.0 (>39); GLUCOSE, FASTING 87 MG/DL (74-106); POTASSIUM SERUM 4.3 MMOL/L (3.5-5.1); SODIUM LEVEL 131 MMOL/L (136-145)
== END ==
LOC: SKLAB3 07:00
PROVIDERS: ATTEND Internal Medicine
DX: R60.9 Edema, unspecified (principal)

== ENCOUNTER → 2024-09-20 | Outpatient (REF) | payer MEDICARE, MEDICAID ==
[2024-09-20 08:04] LABS: ALBUMIN 3.5 G/DL (3.2-5.2); ALKALINE PHOSPHATASE 96 U/L (35-104); ALT/SGPT < 9 U/L (7.0-40); AST/SGOT 18 U/L (<34); BILIRUBIN,TOTAL 0.3 MG/DL (0.3-1.2); BLOOD UREA NITROGEN 18 MG/DL (9-23); CALCIUM LEVEL 8.8 MG/DL (8.3-10.6); CARBON DIOXIDE LEVEL 30 MMOL/L (20-31); CHLORIDE LEVEL 98 MMOL/L (98-107); CREATININE FOR GFR 0.44 MG/DL (0.55-1.30); GLOMERULAR FILTRATION RATE > 60.0 (>39); GLUCOSE, FASTING 97 MG/DL (74-106); POTASSIUM SERUM 4.4 MMOL/L (3.5-5.1); SODIUM LEVEL 136 MMOL/L (136-145); TOTAL PROTEIN 6.7 G/DL (5.7-8.2)
== END ==
LOC: SKLAB3 07:00
PROVIDERS: ATTEND Internal Medicine
DX: I10 Essential (primary) hypertension (principal); R60.9 Edema, unspecified

== ENCOUNTER → 2024-10-25 | Outpatient (REF) | payer MEDICARE, MEDICAID ==
[2024-10-25 07:49] LABS: HEMATOCRIT 35.8 % (36.0-47.0); HEMOGLOBIN 11.8 g/dl (12.0-15.5); MEAN CORPUSCULAR HEMOGLOBIN 30.3 pg (27.0-33.0); PLATELET COUNT, AUTOMATED 267 10^3/uL (150-450); RED BLOOD COUNT 3.89 10^6/uL (4.00-5.40); WHITE BLOOD COUNT 6.5 10^3/uL (4.0-10.0)
[2024-10-25 08:16] LABS: ALBUMIN 3.7 G/DL (3.2-5.2); ALKALINE PHOSPHATASE 107 U/L (35-104); ALT/SGPT 11 U/L (7.0-40); AST/SGOT 9 U/L (<34); BILIRUBIN,TOTAL 0.3 MG/DL (0.3-1.2); BLOOD UREA NITROGEN 18 MG/DL (9-23); CARBON DIOXIDE LEVEL 33 MMOL/L (20-31); CHLORIDE LEVEL 95 MMOL/L (98-107); CREATININE FOR GFR 0.42 MG/DL (0.55-1.30); GLOMERULAR FILTRATION RATE > 90.0 (>39); GLUCOSE, FASTING 108 MG/DL (74-106); POTASSIUM SERUM 4.1 MMOL/L (3.5-5.1); SODIUM LEVEL 133 MMOL/L (136-145); TOTAL PROTEIN 7.1 G/DL (5.7-8.2)
== END ==
LOC: SKLAB3 07:00
PROVIDERS: ATTEND Internal Medicine
DX: I10 Essential (primary) hypertension (principal); R60.9 Edema, unspecified

== ENCOUNTER → 2025-01-24 | Outpatient (REF) | payer MEDICARE, MEDICAID ==
[2025-01-24 14:26] LABS: CALCIUM LEVEL 9.3 MG/DL (8.3-10.6); CARBON DIOXIDE LEVEL 31 MMOL/L (20-31); CHLORIDE LEVEL 98 MMOL/L (98-107); CREATININE FOR GFR 0.50 MG/DL (0.55-1.30); GLOMERULAR FILTRATION RATE > 90.0 (>39); POTASSIUM SERUM 3.6 MMOL/L (3.5-5.1); SODIUM LEVEL 140 MMOL/L (136-145)
[2025-01-24 14:48] LABS: ESTIMATED AVERAGE GLUCOSE 131.0 MG/DL (60-110)
== END ==
LOC: SKLAB3 07:00
PROVIDERS: ATTEND Internal Medicine
DX: E11.9 Type 2 diabetes mellitus without complications (principal); R60.9 Edema, unspecified

== ENCOUNTER → 2025-02-22 | Outpatient (REF) | payer MEDICARE, MEDICAID | LOC: SKLAB3 16:20 | PROVIDERS: ATTEND Internal Medicine | DX: R06.02 Shortness of breath (principal) ==

== ENCOUNTER → 2025-02-28 | Outpatient (REF) | payer MEDICARE, MEDICAID ==
[2025-02-28 17:13] LABS: CALCIUM LEVEL 8.9 MG/DL (8.3-10.6); CARBON DIOXIDE LEVEL 28 MMOL/L (20-31); CHLORIDE LEVEL 100 MMOL/L (98-107); CHOLESTEROL LEVEL 192 MG/DL (<200); CHOLESTEROL RISK RATIO 5.06 (<5); CREATININE FOR GFR 0.48 MG/DL (0.55-1.30); GLOMERULAR FILTRATION RATE > 90.0 (>39); LDL CHOLESTEROL 129.7 MG/DL (<100); NON-HDL-C 154.1 MG/DL; POTASSIUM SERUM 4.6 MMOL/L (3.5-5.1); SODIUM LEVEL 138 MMOL/L (136-145); TRIGLYCERIDES LEVEL 122 MG/DL (<150)
== END ==
LOC: SKLAB3 07:00
PROVIDERS: ATTEND Internal Medicine
DX: E78.5 Hyperlipidemia, unspecified (principal); R60.9 Edema, unspecified

== ENCOUNTER → 2025-04-04 | Outpatient (REF) | payer MEDICARE, MEDICAID ==
[2025-04-04 15:10] LABS: CALCIUM LEVEL 8.5 MG/DL (8.3-10.6); CARBON DIOXIDE LEVEL 32 MMOL/L (20-31); CHLORIDE LEVEL 96 MMOL/L (98-107); CREATININE FOR GFR 0.43 MG/DL (0.55-1.30); GLOMERULAR FILTRATION RATE > 90.0 (>39); POTASSIUM SERUM 4.0 MMOL/L (3.5-5.1); SODIUM LEVEL 136 MMOL/L (136-145)
== END ==
LOC: SKLAB3 07:00
PROVIDERS: ATTEND Family Medicine
DX: R60.9 Edema, unspecified (principal)

== ENCOUNTER → 2025-05-02 | Outpatient (REF) | payer MEDICARE, MEDICAID ==
[2025-05-02 08:27] LABS: PLATELET COUNT, AUTOMATED 192 10^3/uL (150-450)
[2025-05-02 09:02] LABS: ALT/SGPT 9 U/L (7.0-40); AST/SGOT 14 U/L (<34); CALCIUM LEVEL 10.0 MG/DL (8.3-10.6); CARBON DIOXIDE LEVEL 28 MMOL/L (20-31); CHLORIDE LEVEL 99 MMOL/L (98-107); CREATININE FOR GFR 0.45 MG/DL (0.55-1.30); GLOMERULAR FILTRATION RATE > 90.0 (>32); POTASSIUM SERUM 4.2 MMOL/L (3.5-5.1); SODIUM LEVEL 139 MMOL/L (136-145)
== END ==
LOC: SKLAB3 07:00
PROVIDERS: ATTEND Family Medicine
DX: I10 Essential (primary) hypertension (principal); E11.9 Type 2 diabetes mellitus without complications